=== PATIENT | female | born 1955 | race Two or more races ===

== ENCOUNTER → 2017-04-03 | Outpatient (CLI) | payer MEDICARE ==
--- NOTE | 2017-04-23 00:19 | ECWPNPC ---
PATIENT NAME: LUTHER ANAYA : 1955 GENDER: FEMALE VISIT DATE: 04/03/2017 DISCHARGE DATE: 04/03/17 1458 VISIT LOCKED DATE TIME: PHYSICIAN: BASHIR TIDWELL RESOURCE: BASHIR TIDWELL REASON FOR APPOINTMENT 1. BILATERAL KNEE PAIN HISTORY OF PRESENT ILLNESS NEW PATIENT CONSULT: WHEN DID YOUR PAIN FIRST START? . BRIEFLY DESCRIBE HOW YOUR PAIN STARTED? . HOW DOES YOUR PAIN CHANGE WITH TIME? . DOES YOUR PAIN AWAKEN YOU FROM SLEEP? . HOW MANY HOURS OF SLEEP DO YOU NORMALLY GET? . ANY DIAGNOSTIC TESTING? . FACILITY WHERE TESTS WERE DONE? ____. PAIN TREATMENT TREATMENT YES CANCER HAVE YOU EVER HAD ANY TYPE OF CANCER?NO NO. PAIN SCREENING: PATIENT HAS A COMPLAINT OF ACUTE OR CHRONIC PAIN :YES FALL RISK SCREENING: SCREENING :NO FALLS IN THE PAST YEAR SMART INVENTORY: QUESTIONNAIRE ASSESSEDYES SCORE VALUE CALCULATED YES SCORE: 0/63 - DENIES SUICIDAL/HOMICIDAL IDEATION - HAS MANY NEW STRESSORS WITH THE OF HER AND HAS RECENTLY RETURNED TO THE [facility] AFTER MANY YEARS OF LIVING IN THE [facility] TODAY'S VISIT: NOTES: PATIENT HAD BEEN UNDER THE CARE OF DR FOX RYAN IN [facility]. HAS HAD CHRONIC KNEE PAIN FOR MANY YEARS. HAD BILATERAL KNEE REPLACEMENT IN 2011 IN [facility]. HAD EVEN MORE PAIN IN KNEES L> R POST SURGERY. SHARP SHOOTING PAIN RADIATING FROM KNEES TO HIP AREA. HAD PHYSICAL THERAPY AFTER SURGERY. THIS WAS NOT HELPFUL. WAS STARTED ON LYRICA WITHOUT EFFECT, HYDROCODONE,MANY NSAIDS INCLUDING MELOXICAM, RELAFEN, CELEBREX, PERCOCET (MADE SICK) DOES NOT RECALL BEING ON GABAPENTIN , AMITRIPTYLINE OR NORTRYPTLINE. . CURRENTLY PAIN WAXES AND WANES BUT IS CONSTANT. DOES USE A CANE ON OCCASION. NOTES PAIN IS CENTERED OVER THE KNEE CAP, NOTES HARDEST THING IS TO STAND IF SITTING FOR LONG. HARD TO GO UP /DOWN STAIRS. SOME DIFFICULTY GETTING INTO OR OUT OF CAR. STATES DOES NOT CURRENTLY DRIVE. SLEEP IS DISRUPTED WITH KNEE PAIN OR MUSCLE SPASMS. . CURRENT MEDICATIONS TAKING NORCO 10-325 MG TABLET 1 TABLET NEEDED ORALLY TID TAKING METHADONE HCL 10 MG TABLET 1 TABLET ORALLY TID TAKING OMEPRAZOLE 40 MG CAPSULE DELAYED RELEASE 1 CAPSULE ORALLY ONCE A DAY TAKING LISINOPRIL-HYDROCHLOROTHIAZIDE 20-25 MG TABLET 1 TABLET ORALLY ONCE A DAY TAKING CYCLOBENZAPRINE HCL 10 MG TABLET 1 TABLET NEEDED ORALLY THREE TIMES A DAY TAKING MELOXICAM 15 MG TABLET 1 TABLET ORALLY ONCE A DAY TAKING PHENTERMINE HCL 37.5 MG CAPSULE ORALLY DAILY MEDICATION LIST REVIEWED AND RECONCILED WITH THE PATIENT PAST MEDICAL HISTORY GERD HTN CHRONIC TODD KNEE PAIN ALLERGIES N.K.D.A. SURGICAL HISTORY TODD TOTAL KNEES 2012 PARTIAL HYSTERECTOMY FAMILY HISTORY FATHER: 53 YRS, DIAGNOSED WITH CANCER MOTHER: 75 YRS, DIAGNOSED WITH HEART DISEASE SOCIAL HISTORY GENERAL: TOBACCO USE ARE YOU A:NONSMOKER ALCOHOL SCREENING POINTS0 INTERPRETATIONNEGATIVE RECREATIONAL DRUG USE DRUG USE?NO CAFFEINE CAFFEINE USE?NO DIET: REGULAR, TRYING TO LOSE WEIGHT. MARITAL STATUS: MOVED UP TO [place] TO BE CLOSER TO HER FAMILY. SABIANIST [id number] SAMARITAN LEARNING BARRIERS / SPECIAL NEEDS BARRIERS TO LEARNING?NO HEARING IMPAIRED?NO VISION IMPAIRED?NO COGNITIVELY IMPAIRED?NO READINESS TO LEARN?YES LEARNING PREFERENCES?NO EMOTIONAL BARRIERS? 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 REVIEW OF SYSTEMS REVIEWED BY: PROVIDER: BASHIR LOWERY . CONSTITUTIONAL: ANY CHANGE IN YOUR MEDICAL CONDITION? NO . CHILLS NO . FEVER NO . INFECTION: DO YOU HAVE NEW INFECTIONS? NO . DO YOU HAVE HISTORY OF MRSA? NO . MUSCULOSKELETAL: ANY NEW PATTERNS OF PAIN OR NUMBNESS? NO . SYTEMIC LUPUS NO . GASTROENTEROLOGY: ANY NEW CHANGE IN BOWEL CONTROL? NO . BARRETTS ESOPHAGUS NO . CIRRHOSIS NO . HEPATITIS NO . LIVER FAILURE NO . ACID REFLUX NO . UNEXPLAINED WEIGHT LOSS NO . GENITOURINARY: ANY NEW CHANGE IN BLADDER CONTROL? NO -DENIES CONSTIPATION . IS THERE A CHANCE YOU COULD BE ? NO . HEMATOLOGY/LYMPH: DO YOU TAKE ANY BLOOD THINNERS? (FOR EXAMPLE- COUMADIN, PLAVIX, AGGRENOX, PLATEL, PRADAXA, OR XARELTO) NO . WHEN WAS YOUR LAST DOSE? DATE: TIME: . LOW PLATELET COUNT NO . SICKLE CELL DISEASE NO . VON WILLIEBRANDS NO . FACTOR V LEIDEN NO . THALLASEMIA NO . ANEMIA NO . EASY BRUISING NO . NEUROLOGY: HAVE YOU FALLEN IN THE PAST 6 MONTHS? YES. TRIPPED ON A CART . ANY NEW EXTREMITY NUMBNESS OR WEAKNESS? NO . HEAD INJURY NO . DEMENTIA NO . CEREBRAL PALSY NO . MULTIPLE SCLEROSIS NO . DIZZINESS NO . HEADACHE NO . STROKES NO . VERTIGO NO . CARDIOLOGY: DO YOU HAVE A PACEMAKER OR DEFIBRILLATOR? NO . ANGINA NO . HEART ATTACK NO . HEART SURGERY NO . CONGESTIVE HEART FAILURE/FLUID OVERLOAD NO . CHEST PAIN NO . HIGH BLOOD PRESSURE HTN . IRREGULAR HEART BEAT NO . VARICOSE VEINS MANY VARICOSITIES OVER LOWER EXTREMITIES . RESPIRATORY: HAVE YOU BEEN SICK IN THE PAST WEEK? NO . FEVER NO . FLU LIKE SYMPTOMS? NO . CPAP NO . BYPAP NO . ASTHMA NO . EMPHYSEMA NO . CHRONIC LUNG DISEASES NO . SHORTNESS OF BREATH ON EXERTION NO . DO YOU USE ANY TYPE OF TOBACCO (SMOKE, SMOKELESS, CHEW)? NO . COUGH NO . SNORING NO . INTEGUMENTARY: DO YOU HAVE ANY RASHES OR OPEN SORES? NO . ALLERGIC/IMMUNO: ARE YOU ALLERGIC TO SHELLFISH OR IV DYE? NO . ANY NEW ALLERGIES? NO . PSYCHIATRIC: DO YOU HAVE THOUGHTS OF HURTING YOURSELF OR SOMEONE ELSE? NO . ARE YOU ABUSED, NEGLECTED, OR IN AN UNSAFE ENVIRONMENT? NO . ENDOCRINOLOGY: ARE YOU DIABETIC? NO . THYROID DISORDER NO . OTHER: DO YOU NEED ANY PRESCRIPTIONS? YES . IF YES, PLEASE LIST: NORCO , METHADONE , PHENTERMINE . ANY NEW PROBLEMS WITH YOUR MEDICATIONS? NO . WHEN DID YOU LAST EAT? ____ . WHEN DID YOU LAST DRINK? ____ . WHAT DID YOU LAST DRINK? ____ . NAME OF PERSON DRIVING YOU HOME? ____ . DO YOU HAVE ANY OTHER QUESTIONS OR CONCERNS NO . PSYCHOLOGY: DEPRESSION SITUATIONAL - RECENT LOSS OF . VITAL SIGNS WT 277.6 LBS, HT 62 IN, BMI 50.77 INDEX, BP 152/89 MM HG, HR 106 /MIN, RR 18 /MIN, TEMP 98 F,5 F, OXYGEN SAT % 96%, NA INITIALS SC 13:27, REVIEWED BY: NL. EXAMINATION GENERAL EXAMINATION: GENERAL APPEARANCE:OBESE, COLOR PALE. PSYCHALERT , ORIENTED X 3 , INTERMITTANTLY WEEPY. SOME ANXIETY. HEENT:NORMOCEPHALIC, NO LYMPADENOPATHY, NO THYROMEGY. ENLARGED NECK SIZE. LUNGS:CLEAR TO AUSCULTATION BILATERALLY, NO WHEEZES, RALES OR RHONCHI. HEART:HEART RATE IR - REGULAR, NORMAL S1S2, NO MURMURS, CLICK OR RUBS, NO CAROTID BRUITS. MUSCULOSKELETAL:SIG DIFFICULTY RISING TO STANDING POSITION. . EXTREMITIES:1 + BILATERAL LOWER EXTREMITY EDEMA. JOINTS:BILATERAL, KNEE , PAIN , SWELLING , AT REST , WITH RANGE OF MOTION . NEUROLOGIC EXAM:CN'S II-XII GROSSLY INTACT, NO SENSORY DEFICIET. ASSESSMENTS PAIN IN LEFT KNEE - M25.562 (PRIMARY) PAIN IN RIGHT KNEE - M25.561 OTHER CHRONIC PAIN - G89.29 CHRONIC PRESCRIPTION OPIATE USE - Z79.891 ESSENTIAL HYPERTENSION - I10 GAIT DISTURBANCE - R26.9 TREATMENT PAIN IN LEFT KNEE NOTES: WALKER FOR BALANCE. STAND AND WALK DAILY. PAIN IN RIGHT KNEE REFILL METHADONE HCL TABLET, 10 MG, 1 TABLET, ORALLY, Q 8 HRS CHRONIC PAIN MDD=3, 30 DAY(S), 90, REFILLS 0 REFILL NORCO TABLET, 10-325 MG, 1 TABLET NEEDED, ORALLY, Q6-8 HRS PRN PAIN MDD=3, 30 DAY(S), 90, REFILLS 0 NOTES: EKG TO EVALUATE FOR PROLONGED QT WITH METHADONENARCOTIC AGREEMENT ABD UTOX TODAY. PROCEDURE CODES FA211 ESTABILISHED PATIENT [facility] CHARGE G8783 BP SCR PRFRM RCMDD DEFIND SCR INTVL G8730 PAIN ASSESS POS TOOL F/U PLAN DOC 3016F PT SCRND UNHLTHY [place] USE 1124F ACP DISCUSS-NO DSCNMKR DOCD 1036F TOBACCO NON-USER 0518F FALL PLAN OF CARE DOCD G8427 DOC MEDS VERIFIED W/PT OR RE G8417 BMI >=30 CALCUATE W/FOLLOWUP 3288F FALL RISK ASSESSMENT DOCD DISPOSITION & COMMUNICATION FOLLOW UP 26-28 DAYS (REASON: MED MANAGEMENT) ELECTRONICALLY SIGNED BY GRACIA SHIN ON 04/22/2017 AT 05:50 PM EDT DISCLAIMER : THIS IS A VISIT SUMMARY EXTRACTED FROM THE [employer] CHART. IT IS NOT A COPY OF THE [employer] PROGRESS NOTE. MTDD
== END ==
LOC: M PAIN 13:20
PROVIDERS: ATTEND Nurse Practitioner Family
DX: M25.562 Pain in left knee (principal); M25.561 Pain in right knee; G89.29 Other chronic pain; Z79.891 Long term (current) use of opiate analgesic; I10 Essential (primary) hypertension; R26.9 Unspecified abnormalities of gait and mobility; Z79.899 Other long term (current) drug therapy

== ENCOUNTER → 2017-04-16 | Outpatient (CLI) | payer MEDICARE ==
[2017-04-16 11:35] LABS: BASO % 0.4 % (0.0-1.0); EOS # 0.2 K/mm3 (0.0-0.50); EOS % 3.7 % (0.0-3.0); LYMPH % 37.4 % (24.0-44.0); MEAN CORPUSCULAR HEMOGLOBIN 24.9 pg (27.0-33.0); MEAN CORPUSCULAR HGB CONC 30.7 g/dl (32.0-36.5); MEAN CORPUSCULAR VOLUME 81.2 fl (80.0-96.0); MONO # 0.3 K/mm3 (0.0-0.8); MONO % 6.6 % (0.0-5.0); NEUTROPHILS # 2.6 K/mm3 (1.8-7.7); NEUTROPHILS % 50.1 % (36.0-66.0); RED CELL DISTRIBUTION WIDTH 16.8 % (11.5-14.5); WHITE BLOOD COUNT 5.1 K/mm3 (4.0-10.0)
[2017-04-16 12:08] LABS: ALBUMIN 3.6 GM/DL (3.2-5.2); ALKALINE PHOSPHATASE 95 U/L (45-117); ALT/SGPT 17 U/L (12-78); ANION GAP 5 MEQ/L (8-16); AST/SGOT 7 U/L (15-37); BILIRUBIN,TOTAL 0.6 MG/DL (0.2-1.0); BLOOD UREA NITROGEN 24 MG/DL (7-18); CALCIUM LEVEL 9.1 MG/DL (8.8-10.2); CARBON DIOXIDE LEVEL 33 MEQ/L (21-32); CHLORIDE LEVEL 103 MEQ/L (98-107); CHOLESTEROL LEVEL 174 MG/DL (<200); CREATININE FOR GFR 0.86 MG/DL (0.55-1.02); GLOMERULAR FILTRATION RATE > 60.0 (>45); GLUCOSE, FASTING 97 MG/DL (80-110); POTASSIUM SERUM 4.1 MEQ/L (3.5-5.1); SODIUM LEVEL 141 MEQ/L (136-145); TOTAL PROTEIN 7.2 GM/DL (6.4-8.2); TRIGLYCERIDES LEVEL 103 MG/DL (<150)
== END ==
LOC: M LAB 10:50
PROVIDERS: ATTEND Physician Assistant Medical
DX: I10 Essential (primary) hypertension (principal); E55.9 Vitamin D deficiency, unspecified

== ENCOUNTER → 2017-04-16 | Outpatient (CLI) | payer MEDICARE ==
--- NOTE | 2017-04-17 00:42 | ECGEPIP ---
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
== END ==
LOC: M EKG 10:54
PROVIDERS: ATTEND Nurse Practitioner Family
DX: I10 Essential (primary) hypertension (principal)

== ENCOUNTER 2017-04-23 16:14 | Emergency (ER) | payer MEDICARE ==
[~2017-04-23] VITALS: Ht 157.5 cm; Wt 123.2 kg
[2017-04-23 17:27] LABS: BASO # 0.1 K/mm3 (0.0-0.2); BASO % 1.1 % (0.0-1.0); EOS # 0.2 K/mm3 (0.0-0.50); EOS % 2.8 % (0.0-3.0); LARGE UNSTAINED CELL # 0.2 K/mm3 (0.0-0.4); LARGE UNSTAINED CELL % 3.9 % (0.0-4.0); LYMPH # 2.3 K/mm3 (1.5-4.5); LYMPH % 40.3 % (24.0-44.0); MEAN CORPUSCULAR HEMOGLOBIN 26.4 pg (27.0-33.0); MEAN CORPUSCULAR HGB CONC 32.2 g/dl (32.0-36.5); MEAN CORPUSCULAR VOLUME 81.8 fl (80.0-96.0); MONO # 0.5 K/mm3 (0.0-0.8); MONO % 8.1 % (0.0-5.0); NEUTROPHILS # 2.5 K/mm3 (1.8-7.7); NEUTROPHILS % 43.7 % (36.0-66.0); PLATELET COUNT, AUTOMATED 268 k/mm3 (150-450); RED CELL DISTRIBUTION WIDTH 16.8 % (11.5-14.5); WHITE BLOOD COUNT 5.8 K/mm3 (4.0-10.0)
--- NOTE | 2017-04-23 17:28 | REP ---
Clinical: Chest pain . Comparison: None . Findings: The mediastinum and cardiac silhouette are stable and within normal limits for portable technique. The lung call are clear without acute consolidation, effusion, or pneumothorax. Skeletal structures are intact. Impression: No acute cardiopulmonary process appreciated. Signed by Darren Celis MD 04/23/2017 05:19 P
[2017-04-23 17:46] LABS: ANION GAP 8 MEQ/L (8-16); BLOOD UREA NITROGEN 26 MG/DL (7-18); CALCIUM LEVEL 8.6 MG/DL (8.8-10.2); CARBON DIOXIDE LEVEL 29 MEQ/L (21-32); CHLORIDE LEVEL 102 MEQ/L (98-107); CREATININE FOR GFR 1.05 MG/DL (0.55-1.02); FREE T4 1.21 NG/DL (0.76-1.46); GLOMERULAR FILTRATION RATE 56.3 (>45); GLUCOSE, FASTING 97 MG/DL (80-110); POTASSIUM SERUM 3.5 MEQ/L (3.5-5.1); SODIUM LEVEL 139 MEQ/L (136-145)
[2017-04-23] MEDS ORDERED: ISOVUE-370 76% 100ML VIAL (Q9967) As Ordered ONE (18:02)
[2017-04-23] MEDS ORDERED: METOPROLOL TART 50 MG TAB PO ONE (18:30)
[2017-04-23] MEDS ORDERED: METOPROLOL 5 MG/5 ML VIAL IV SCH (18:30)
[2017-04-23 18:42] VITALS: BP 124/56
--- NOTE | 2017-04-23 18:42 | REP ---
Clinical: Chest pain. Technique: Axial contrast enhanced images from the thoracic inlet to the upper abdomen using 100 ml Isovue 370 intravenous contrast material with multiplanar re-formations. Findings: Satisfactory enhancement of the pulmonary vasculature is achieved and no filling defects are identified to suggest pulmonary embolus. Cardiomegaly suggested along with tortuous thoracic aorta. Lung call demonstrate emphysematous changes and bibasilar scarring. No focal consolidation. No pleural effusion/reaction or pneumothorax. Tracheobronchial tree is patent. Right paratracheal adenopathy and possible mass measuring 2.3 cm maximal diameter cannot be excluded (series 401; images 45 - 62) and differential diagnosis may include a somewhat irregular / tortuous azygos vein. Surrounding musculoskeletal structures demonstrate age-related changes without focal osseous abnormality Impression: 1. No evidence for pulmonary embolus. 2. Cardiomegaly and tortuous thoracic aorta without aneurysm. 3. Cannot exclude right paratracheal adenopathy versus mass versus irregular appearance to the azygos vein. A repeat contrast enhanced chest CT should be performed as follow-up. 4. Underlying mild chronic emphysematous changes and basilar scarring. Signed by Darren Celis MD 04/23/2017 06:33 P
[2017-04-23 20:29] VITALS: BP 132/90
--- NOTE | 2017-04-24 07:36 | ECGEPIP ---
Stationary ECG Study [facility] - ED Test Date: 2017-04-23 Pat Name: LUTHER ANAYA Department: Room: - Gender: F Financial Intern: walter : 1955 Requested By: VAUGHN Hernandez Order Number: [id number] Reading MD: Rama Lea Measurements Intervals [place] Rate: 105 P: ND: 0 QRS: -37 QRSD: 102 T: 4 QT: 357 QTc: 474 Interpretive Statements ATRIAL FIBRILLATION WITH RAPID VENTRICULAR RESPONSE MARKED LEFT AXIS DEVIATION NONSPECIFIC ST & T-WAVE ABNORMALITY DECREASED RATE 04/16/17 Electronically Signed On 04-24-2017 7:36:23 EDT by Rama Lea
--- NOTE | 2017-04-24 08:19 | ED PDOC ---
Post-Departure Follow-Up radiology report faxed to [facility] Ferrer Sarah MD Apr 24, 2017 08:19
== END 2017-04-23 20:31 | disposition home or self-care (01) ==
LOC: M ED 16:14
DX: I48.91 Unspecified atrial fibrillation (principal); I11.0 Hypertensive heart disease with heart failure; I79.1 Aortitis in diseases classified elsewhere; R93.8 Abnormal findings on diagnostic imaging of other specified body structures; Z79.899 Other long term (current) drug therapy; Z82.49 Family history of ischemic heart disease and other diseases of the circulatory system; Z96.653 Presence of artificial knee joint, bilateral; Z90.79 Acquired absence of other genital organ(s)
CPT/HCPCS: 36415; 71010; 71275; 80048; 82550; 82553; 84439; 84443; 84484; 85025; 85379; 93005; 93041; 94760; 96374; 99285; Q9967

== ENCOUNTER → 2017-05-05 | Outpatient (CLI) | payer MEDICARE ==
--- NOTE | 2017-05-29 01:43 | ECWPNPC ---
PATIENT NAME: LUTHER ANAYA : 1955 GENDER: FEMALE VISIT DATE: 05/05/2017 DISCHARGE DATE: 05/05/17 1114 VISIT LOCKED DATE TIME: PHYSICIAN: BASHIR TIDWELL RESOURCE: BASHIR TIDWELL REASON FOR APPOINTMENT 1. MED MANAGEMENT HISTORY OF PRESENT ILLNESS HISTORY OF PRESENT ILLNESS: PAIN THE PATIENT DESCRIBES THE PAIN... FALL RISK SCREENING: SCREENING :NO FALLS IN THE PAST YEAR TODAY'S VISIT: NOTES: RATES PAIN TODAY 7-8/10. DESCRIBES PAIN CONSTANT, WITH INTERMITTANT INCREASES AT THE LEFT KNEE. PAIN IS SHARP, STABBING AND SHOOTING WELL THROBBING. KNEE CONTINUES TO BE HOT TO TOUCH.. CURRENT MEDICATIONS TAKING OMEPRAZOLE 40 MG CAPSULE DELAYED RELEASE 1 CAPSULE ORALLY ONCE A DAY TAKING LISINOPRIL-HYDROCHLOROTHIAZIDE 20-25 MG TABLET 1 TABLET ORALLY ONCE A DAY TAKING CYCLOBENZAPRINE HCL 10 MG TABLET 1 TABLET NEEDED ORALLY THREE TIMES A DAY TAKING MELOXICAM 15 MG TABLET 1 TABLET ORALLY ONCE A DAY TAKING METHADONE HCL 10 MG TABLET 1 TABLET ORALLY Q 8 HRS CHRONIC PAIN MDD=3 TAKING NORCO 10-325 MG TABLET 1 TABLET NEEDED ORALLY Q6-8 HRS PRN PAIN MDD=3 TAKING METOPROLOL SUCCINATE 50 MG TABLET EXTENDED RELEASE ORALLY NOT-TAKING PHENTERMINE HCL 37.5 MG CAPSULE ORALLY DAILY MEDICATION LIST REVIEWED AND RECONCILED WITH THE PATIENT PAST MEDICAL HISTORY GERD HTN CHRONIC TODD KNEE PAIN REVIEW OF SYSTEMS REVIEWED BY: PROVIDER: BASHIR TIDWELL PAYROLL PROCESSOR . CONSTITUTIONAL: ANY CHANGE IN YOUR MEDICAL CONDITION? MD JUST PUT ON METOPROL AND ELIQUIS / SAW MD TODAY DOES NOT KNOW DOSE OF ELIQUIS . CHILLS NO . FEVER NO . INFECTION: DO YOU HAVE NEW INFECTIONS? NO . DO YOU HAVE HISTORY OF MRSA? NO . MUSCULOSKELETAL: ANY NEW PATTERNS OF PAIN OR NUMBNESS? NO . GASTROENTEROLOGY: ANY NEW CHANGE IN BOWEL CONTROL? NO . GENITOURINARY: ANY NEW CHANGE IN BLADDER CONTROL? NO . IS THERE A CHANCE YOU COULD BE ? NO . HEMATOLOGY/LYMPH: DO YOU TAKE ANY BLOOD THINNERS? (FOR EXAMPLE- COUMADIN, PLAVIX, AGGRENOX, PLATEL, PRADAXA, OR XARELTO) YES, NEW TODAY / HAS NOT STARTED YET . WHEN WAS YOUR LAST DOSE? DATE: TIME: . NEUROLOGY: HAVE YOU FALLEN IN THE PAST 6 MONTHS? NO . ANY NEW EXTREMITY NUMBNESS OR WEAKNESS? NO . CARDIOLOGY: DO YOU HAVE A PACEMAKER OR DEFIBRILLATOR? NO . IRREGULAR HEART BEAT NEW DX OF ATRIAL FIB - STARTED ON ELIQUIS . RESPIRATORY: HAVE YOU BEEN SICK IN THE PAST WEEK? NO . FEVER NO . FLU LIKE SYMPTOMS? NO . COUGH NO . INTEGUMENTARY: DO YOU HAVE ANY RASHES OR OPEN SORES? NO . ALLERGIC/IMMUNO: ARE YOU ALLERGIC TO SHELLFISH OR IV DYE? NO . ANY NEW ALLERGIES? NO . PSYCHIATRIC: DO YOU HAVE THOUGHTS OF HURTING YOURSELF OR SOMEONE ELSE? NO . ARE YOU ABUSED, NEGLECTED, OR IN AN UNSAFE ENVIRONMENT? NO . ENDOCRINOLOGY: ARE YOU DIABETIC? NO . OTHER: DO YOU NEED ANY PRESCRIPTIONS? YES . IF YES, PLEASE LIST: MELOXICAM . ANY NEW PROBLEMS WITH YOUR MEDICATIONS? NO . WHEN DID YOU LAST EAT? ____ . WHEN DID YOU LAST DRINK? ____ . WHAT DID YOU LAST DRINK? ____ . NAME OF PERSON DRIVING YOU HOME? ____ . DO YOU HAVE ANY OTHER QUESTIONS OR CONCERNS NO . VITAL SIGNS WT 273.2 LBS, HT 62 IN, BMI 49.96 INDEX, BP 114/70 MANNUAL, HR 103 /MIN, RR 18 /MIN, TEMP 97.7 F, OXYGEN SAT % 96%, NA INITIALS TL 1021, REVIEWED BY: NL. EXAMINATION GENERAL EXAMINATION: GENERAL APPEARANCE:OBESE, COLOR PALE. PSYCHALERT , ORIENTED X 3 ANXIOUS. LUNGS:CLEAR TO AUSCULTATION BILATERALLY, NO WHEEZES, RALES OR RHONCHI. HEART:HEART RATE IR - REGULAR, NORMAL S1S2, NO MURMURS, CLICK OR RUBS, NO CAROTID BRUITS. MUSCULOSKELETAL:SIG DIFFICULTY RISING TO STANDING POSITION. . EXTREMITIES:1 + BILATERAL LOWER EXTREMITY EDEMA. JOINTS:BILATERAL, KNEE , PAIN , SWELLING , AT REST , WITH RANGE OF MOTION . ASSESSMENTS PAIN IN LEFT KNEE - M25.562 (PRIMARY) PAIN IN RIGHT KNEE - M25.561 OTHER CHRONIC PAIN - G89.29 CHRONIC PRESCRIPTION OPIATE USE - Z79.891 ESSENTIAL HYPERTENSION - I10 GAIT DISTURBANCE - R26.9 TREATMENT PAIN IN LEFT KNEE NOTES: METHADONE 10 MG 2 TABS A DAY - MAY TAKE HYDROCONE MAX 3 TABS PER DAY. FORMAL WASTE OF MELOXICAM AND PHENTERAMINE. CLINICAL NOTES: AT LEAST VISIT PT IS ON METHADONE, EKG WAS DONE WHICH DEMONSTRATED POSSIBLE CARDIAC DAMAGE, INCREASED QTC AND ATRIAL FIB. PT'S PCP SORAYA FINCH PA-C WAS CONTACTED AND SHE WAS SENT TO THE ER. SAW PROVIDER TODAY AND WILL BE SEEN BY CARDIOLOGY. REVIEWED AGAIN THE CONCERNS WITH METHADONE A CARDIAC ISSUES. METHADONE DOSE WAS DECREASED AND HYDROCODONE WAS PUT IN PLACE FOR BREAKTHROUGH PAIN. WILL FOLLOW. PROCEDURE CODES FA211 ESTABILISHED PATIENT [facility] CHARGE G8730 PAIN ASSESS POS TOOL F/U PLAN DOC G8427 DOC MEDS VERIFIED W/PT OR RE DISPOSITION & COMMUNICATION FOLLOW UP May OR (REASON: MED MANAGEMENT) ELECTRONICALLY SIGNED BY GRACIA SHIN ON 05/28/2017 AT 06:42 PM EDT DISCLAIMER : THIS IS A VISIT SUMMARY EXTRACTED FROM THE [employer] CHART. IT IS NOT A COPY OF THE [employer] PROGRESS NOTE. MTDD
== END ==
LOC: M PAIN 10:00
PROVIDERS: ATTEND Nurse Practitioner Family
DX: G89.29 Other chronic pain (principal); M25.562 Pain in left knee; M25.561 Pain in right knee; I10 Essential (primary) hypertension; R26.9 Unspecified abnormalities of gait and mobility; K21.9 Gastro-esophageal reflux disease without esophagitis; I48.91 Unspecified atrial fibrillation; Z79.899 Other long term (current) drug therapy

== ENCOUNTER → 2017-07-15 | Outpatient (CLI) | payer MEDICARE ==
--- NOTE | 2017-08-12 01:27 | ECWPNPC ---
PATIENT NAME: LUTHER ANAYA : 1955 GENDER: FEMALE VISIT DATE: 07/15/2017 DISCHARGE DATE: 07/15/17 1215 VISIT LOCKED DATE TIME: PHYSICIAN: BASHIR TIDWELL RESOURCE: BASHIR TIDWELL REASON FOR APPOINTMENT 1. MEDS HISTORY OF PRESENT ILLNESS HISTORY OF PRESENT ILLNESS: PAIN THE PATIENT DESCRIBES THE PAIN... FALL RISK SCREENING: SCREENING :NO FALLS IN THE PAST YEAR TODAY'S VISIT: NOTES: RATES PAIN TODAY 6/10. DESCRIBES PAIN ACHING AND BURNING, SHARP, STABBING, THROBBING, SORE AND SORE. IS SEEING DR TARANGO AND IS ALSO BEING REFERRED TO PULMONOLOGY. IS HAVING A BURNING SENSATION IN LEFT THIGH. WAS ABLE TO WALK ON VISIT TO [facility]. . CURRENT MEDICATIONS TAKING OMEPRAZOLE 40 MG CAPSULE DELAYED RELEASE 1 CAPSULE ORALLY ONCE A DAY TAKING LISINOPRIL-HYDROCHLOROTHIAZIDE 20-25 MG TABLET 1 TABLET ORALLY ONCE A DAY TAKING METOPROLOL SUCCINATE 50 MG TABLET EXTENDED RELEASE ORALLY TAKING METHADONE HCL 10 MG TABLET 1 TABLET ORALLY Q 12 HOURS MDD=2 CHRONIC PAIN TAKING CYCLOBENZAPRINE HCL 10 MG TABLET 1 TABLET NEEDED ORALLY THREE TIMES A DAY TAKING NORCO 10-325 MG TABLET 1 TABLET NEEDED ORALLY Q6-8 HRS PRN PAIN MDD=3 TAKING XARELTO 20 MG TABLET 1 TABLET WITH FOOD ORALLY ONCE A DAY NOT-TAKING MELOXICAM 15 MG TABLET 1 TABLET ORALLY ONCE A DAY NOT-TAKING PHENTERMINE HCL 37.5 MG CAPSULE ORALLY DAILY MEDICATION LIST REVIEWED AND RECONCILED WITH THE PATIENT PAST MEDICAL HISTORY GERD HTN CHRONIC TODD KNEE PAIN ALLERGIES N.K.D.A. REVIEW OF SYSTEMS REVIEWED BY: PROVIDER: BASHIR TIDWELL TECHNICAL DELIVERY MANAGER . CONSTITUTIONAL: ANY CHANGE IN YOUR MEDICAL CONDITION? 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 CHILLS NO . FEVER NO . INFECTION: DO YOU HAVE NEW INFECTIONS? NO . DO YOU HAVE HISTORY OF MRSA? NO . MUSCULOSKELETAL: ANY NEW PATTERNS OF PAIN OR NUMBNESS? NO . GASTROENTEROLOGY: ANY NEW CHANGE IN BOWEL CONTROL? NO . GENITOURINARY: ANY NEW CHANGE IN BLADDER CONTROL? NO . IS THERE A CHANCE YOU COULD BE ? NO . HEMATOLOGY/LYMPH: DO YOU TAKE ANY BLOOD THINNERS? (FOR EXAMPLE- COUMADIN, PLAVIX, AGGRENOX, PLATEL, PRADAXA, OR XARELTO) NO . WHEN WAS YOUR LAST DOSE? DATE: TIME: . NEUROLOGY: HAVE YOU FALLEN IN THE PAST 6 MONTHS? NO . ANY NEW EXTREMITY NUMBNESS OR WEAKNESS? NO . CARDIOLOGY: DO YOU HAVE A PACEMAKER OR DEFIBRILLATOR? NO . RESPIRATORY: HAVE YOU BEEN SICK IN THE PAST WEEK? NO . FEVER NO . FLU LIKE SYMPTOMS? NO . COUGH NO . INTEGUMENTARY: DO YOU HAVE ANY RASHES OR OPEN SORES? NO . ALLERGIC/IMMUNO: ARE YOU ALLERGIC TO SHELLFISH OR IV DYE? NO . ANY NEW ALLERGIES? NO . PSYCHIATRIC: DO YOU HAVE THOUGHTS OF HURTING YOURSELF OR SOMEONE ELSE? NO . ARE YOU ABUSED, NEGLECTED, OR IN AN UNSAFE ENVIRONMENT? NO . ENDOCRINOLOGY: ARE YOU DIABETIC? NO . OTHER: DO YOU NEED ANY PRESCRIPTIONS? NO . IF YES, PLEASE LIST: ____ . ANY NEW PROBLEMS WITH YOUR MEDICATIONS? NO . WHEN DID YOU LAST EAT? ____ . WHEN DID YOU LAST DRINK? ____ . WHAT DID YOU LAST DRINK? ____ . NAME OF PERSON DRIVING YOU HOME? ____ . DO YOU HAVE ANY OTHER QUESTIONS OR CONCERNS DOES NOT KNOW WHY SHE IS ON XARELTO . VITAL SIGNS WT 269 LBS, HT 62 IN, BMI 49.20 INDEX, BP 135/76 MM HG, HR 63 /MIN, RR 18 /MIN, TEMP 97.5 F, OXYGEN SAT % 92%, NA INITIALS AW 1153, REVIEWED BY: NL. EXAMINATION GENERAL EXAMINATION: GENERAL APPEARANCE:OBESE, COLOR PALE. PSYCHALERT , ORIENTED X 3 ANXIOUS. LUNGS:CLEAR TO AUSCULTATION BILATERALLY, NO WHEEZES, RALES OR RHONCHI. HEART:HEART RATE IR - REGULAR, NO CAROTID BRUITS. MUSCULOSKELETAL: DIFFICULTY RISING TO STANDING POSITION. POOR BALANCE. GAIT ANTALGIC. EXTREMITIES:1 + BILATERAL LOWER EXTREMITY EDEMA. JOINTS:BILATERAL, KNEE , PAIN , SWELLING , AT REST , WITH RANGE OF MOTION . ASSESSMENTS PAIN IN LEFT KNEE - M25.562 (PRIMARY) PAIN IN RIGHT KNEE - M25.561 OTHER CHRONIC PAIN - G89.29 CHRONIC PRESCRIPTION OPIATE USE - Z79.891 ESSENTIAL HYPERTENSION - I10 GAIT DISTURBANCE - R26.9 TREATMENT PAIN IN LEFT KNEE NOTES: CONTINUE CURRENT MEDS. CALL WHEN MEDS DUE. CLINICAL NOTES: ISTOP REGISTRY REVIEWED AND DEMNOSTRATES COMPLLIANCE. (REF# [id number]) BRINGS IN MEDICATIONS WHICH IS APPROPRIATE FOR WHAT WAS DISPENSED. RECENT URINE TOXICOLOGY REVIEWED. NO UNAUTHORIZED MEDICATIONS. NO ILLICIT SUBSTANCES AND PRESCRIBED MEDICATIONS WERE PRESENT. PROCEDURE CODES FA211 ESTABILISHED PATIENT [facility] CHARGE G8730 PAIN ASSESS POS TOOL F/U PLAN DOC G8427 DOC MEDS VERIFIED W/PT OR RE DISPOSITION & COMMUNICATION FOLLOW UP 2 MONTHS (REASON: BRENDA - NEED MOST RECENT EKG AND OFFICE NOTES FROM DR TARANGO) ELECTRONICALLY SIGNED BY GRACIA SHIN ON 08/11/2017 AT 02:08 PM EDT DISCLAIMER : THIS IS A VISIT SUMMARY EXTRACTED FROM THE [employer] CHART. IT IS NOT A COPY OF THE [employer] PROGRESS NOTE. ANA
== END ==
LOC: M PAIN 11:15
PROVIDERS: ATTEND Nurse Practitioner Family
DX: G89.29 Other chronic pain (principal); M25.562 Pain in left knee; M25.561 Pain in right knee; I10 Essential (primary) hypertension; R26.9 Unspecified abnormalities of gait and mobility; F10.20 Alcohol dependence, uncomplicated; Z79.891 Long term (current) use of opiate analgesic; Z79.899 Other long term (current) drug therapy

== ENCOUNTER → 2017-10-14 | Outpatient (CLI) | payer MEDICARE | LOC: M PAIN 14:15 | DX: G89.29 Other chronic pain (principal); M25.562 Pain in left knee; M25.561 Pain in right knee; I10 Essential (primary) hypertension; R26.9 Unspecified abnormalities of gait and mobility; K21.9 Gastro-esophageal reflux disease without esophagitis; I48.91 Unspecified atrial fibrillation; Z79.01 Long term (current) use of anticoagulants; Z79.891 Long term (current) use of opiate analgesic; F11.20 Opioid dependence, uncomplicated; Z79.899 Other long term (current) drug therapy | CPT/HCPCS: G0463 ==

== ENCOUNTER → 2017-11-10 | Outpatient (CLI) | payer MEDICARE | LOC: M PAIN 10:00 | DX: M25.562 Pain in left knee (principal); M25.561 Pain in right knee; G89.29 Other chronic pain; R26.9 Unspecified abnormalities of gait and mobility; K21.9 Gastro-esophageal reflux disease without esophagitis; I10 Essential (primary) hypertension; Z79.891 Long term (current) use of opiate analgesic; Z79.899 Other long term (current) drug therapy | CPT/HCPCS: G0463 ==

== ENCOUNTER → 2018-02-03 | Outpatient (CLI) | payer MEDICARE | LOC: M PAIN 10:45 | DX: M25.562 Pain in left knee (principal); M25.561 Pain in right knee; G89.29 Other chronic pain; R26.9 Unspecified abnormalities of gait and mobility; K21.9 Gastro-esophageal reflux disease without esophagitis; I10 Essential (primary) hypertension; Z79.891 Long term (current) use of opiate analgesic; Z79.01 Long term (current) use of anticoagulants; Z79.899 Other long term (current) drug therapy | CPT/HCPCS: G0463 ==

== ENCOUNTER → 2018-06-08 | Outpatient (CLI) | payer MEDICARE | LOC: M PAIN 10:30 | DX: G89.29 Other chronic pain (principal); M25.562 Pain in left knee; M25.561 Pain in right knee; R26.9 Unspecified abnormalities of gait and mobility; K21.9 Gastro-esophageal reflux disease without esophagitis; I10 Essential (primary) hypertension; I48.91 Unspecified atrial fibrillation; I83.90 Asymptomatic varicose veins of unspecified lower extremity; Z79.891 Long term (current) use of opiate analgesic; Z96.653 Presence of artificial knee joint, bilateral; Z79.899 Other long term (current) drug therapy | CPT/HCPCS: G0463 ==

== ENCOUNTER → 2018-09-01 | Outpatient (REF) | payer MEDICARE ==
[2018-09-01 14:08] LABS: HEMATOCRIT 44.4 % (36.0-47.0); HEMOGLOBIN 14.4 g/dl (12.0-15.5); MEAN CORPUSCULAR HEMOGLOBIN 28.6 pg (27.0-33.0); MEAN CORPUSCULAR HGB CONC 32.4 g/dl (32.0-36.5); MEAN CORPUSCULAR VOLUME 88.1 fl (80.0-96.0); PLATELET COUNT, AUTOMATED 293 10^3/uL (150-450); RED BLOOD COUNT 5.04 10^6/uL (4.00-5.40); RED CELL DISTRIBUTION WIDTH 15.9 % (11.5-14.5)
[2018-09-01 14:27] LABS: ALBUMIN 3.6 GM/DL (3.2-5.2); ALBUMIN/GLOBULIN RATIO 0.95 (1.00-1.93); ALKALINE PHOSPHATASE 101 U/L (45-117); ALT/SGPT 25 U/L (12-78); ANION GAP 9 MEQ/L (8-16); AST/SGOT 18 U/L (7-37); BILIRUBIN,TOTAL 0.6 MG/DL (0.2-1.0); BLOOD UREA NITROGEN 13 MG/DL (7-18); CALCIUM LEVEL 9.1 MG/DL (8.8-10.2); CARBON DIOXIDE LEVEL 30 MEQ/L (21-32); CHLORIDE LEVEL 99 MEQ/L (98-107); CHOLESTEROL LEVEL 219 MG/DL (<200); CHOLESTEROL RISK RATIO 4.211 (<5); CREATININE FOR GFR 0.98 MG/DL (0.55-1.30); GLOMERULAR FILTRATION RATE > 60.0 (>45); GLUCOSE, FASTING 128 MG/DL (70-100); HDL CHOLESTEROL 52 MG/DL (>40); LDL CHOLESTEROL 135 MG/DL (<100); NON-HDL-C 167 MG/DL; POTASSIUM SERUM 3.8 MEQ/L (3.5-5.1); SODIUM LEVEL 138 MEQ/L (136-145); TOTAL PROTEIN 7.4 GM/DL (6.4-8.2); TRIGLYCERIDES LEVEL 158 MG/DL (<150)
== END ==
LOC: M SFHCPLAZ 10:56
DX: Z00.00 Encounter for general adult medical examination without abnormal findings (principal); I48.91 Unspecified atrial fibrillation; E66.01 Morbid (severe) obesity due to excess calories; Z68.43 Body mass index [BMI] 50.0-59.9, adult
CPT/HCPCS: 84443

== ENCOUNTER → 2018-09-01 | Outpatient (CLI) | payer MEDICARE | LOC: M PAIN 11:45 | DX: M25.562 Pain in left knee (principal); M25.561 Pain in right knee; G89.29 Other chronic pain; I83.90 Asymptomatic varicose veins of unspecified lower extremity; R26.9 Unspecified abnormalities of gait and mobility; K21.9 Gastro-esophageal reflux disease without esophagitis; I10 Essential (primary) hypertension; I48.91 Unspecified atrial fibrillation; Z96.653 Presence of artificial knee joint, bilateral; Z79.891 Long term (current) use of opiate analgesic | CPT/HCPCS: 84443; G0463 ==

== ENCOUNTER → 2019-01-25 | Outpatient (CLI) | payer MEDICARE ==
--- NOTE | 2019-01-27 01:07 | ECWPNPC ---
PATIENT NAME: LUTHER ANAYA : 1955 GENDER: FEMALE VISIT DATE: 01/25/2019 DISCHARGE DATE: 01/25/19 1431 VISIT LOCKED DATE TIME: PHYSICIAN: KIRAN LEWIS RESOURCE: KIRAN LEWIS REASON FOR APPOINTMENT 1. KNEE PAIN MED MANAGEMNT HISTORY OF PRESENT ILLNESS HISTORY OF PRESENT ILLNESS: PAIN THE PATIENT DESCRIBES THE PAINDURING THE LAST MONTH SEVERITY - PAIN SCORE OF5/10 QUALITYACHING , BURNING 63 YR OLD FEMALE HERE TO F/U ON HER CHRONIC BILATERAL KNEE PAIN. SHE SAYS SHE HAS DECREASED HER DOSE OF HYDROCODONE AND THIS HAS HELPED. FALL RISK SCREENING: SCREENING :NO FALLS REPORTED IN THE LAST YEAR CURRENT MEDICATIONS TAKING LISINOPRIL-HYDROCHLOROTHIAZIDE 20-25 MG TABLET 1 TABLET ORALLY ONCE A DAY TAKING XARELTO 20 MG TABLET 1 TABLET WITH FOOD ORALLY ONCE A DAY TAKING OMEPRAZOLE 40 MG CAPSULE DELAYED RELEASE 1 CAPSULE ORALLY ONCE A DAY TAKING METOPROLOL TARTRATE 50 MG TABLET 1 TABLET WITH FOOD ORALLY DAILY TAKING ZOFRAN 8 MG TABLET 1 TABLET ORALLY THREE TIMES DAILY PRN NAUSEA TAKING PROZAC 20 MG CAPSULE 1 CAPSULE ORALLY ONCE A DAY TAKING METHADONE HCL 10 MG TABLET 1 TABLET ORALLY Q 12 HOURS MDD=2 CHRONIC PAIN TAKING NORCO 10-325 MG TABLET 1 TABLET NEEDED ORALLY Q12H PRN MDD2 TAKING CYCLOBENZAPRINE HCL 10 MG TABLET 1 TABLET NEEDED ORALLY THREE TIMES A DAY MEDICATION LIST REVIEWED AND RECONCILED WITH THE PATIENT PAST MEDICAL HISTORY GERD HTN ATRIAL FIB ON XARELTO STRESS TEST -DR. TARANGO VARICOSE VEINS CHRONIC TODD KNEE PAIN CHRONIC PRESCRIPTION OPOID USEAGE GAIT DISTURBANCE 02/25/18 REFUSES COLONOSCOPY ALLERGIES N.K.D.A. SURGICAL HISTORY TODD TOTAL KNEES 2012 PARTIAL HYSTERECTOMY FAMILY HISTORY FATHER: 53 YRS, MELONOMA, DIAGNOSED WITH CANCER MOTHER: 75 YRS, HEART DISEASE 1 SISTER(S) . PT HAS A TWIN SISTER WHO SEE\\'S DR. ROCA. \\N1 SISTER IN FIRE @ AGE 36 (AT FIRESIDE REST). SOCIAL HISTORY GENERAL: TOBACCO USE ARE YOU A:NONSMOKER NEVER SMOKER BMI CARE GOAL FOLLOW-UP ABOVE NORMAL BMI FOLLOW-UPDIETARY MANAGEMENT EDUCATION, GUIDANCE, AND COUNSELING ALCOHOL SCREENING DID YOU HAVE A DRINK CONTAINING ALCOHOL IN THE PAST YEAR?NO POINTS0 INTERPRETATIONNEGATIVE RECREATIONAL DRUG USE DRUG USE?NO CAFFEINE CAFFEINE USE?YES 1-2 A DAY SODA SEXUAL HX HAD SEX IN THE LAST 12 MONTHS (VAGINAL, ORAL, OR ANAL)?NO LMP:HYSTERECTOMY HAVE YOU EVER HAD AN STD?NO HIV / HEP-C SCREENING HIV TEST OFFERED TO PATIENT:YES DATE OFFERED:02/25/2018 TEST ACCEPTED:NO HEP-C TEST OFFERED TO PATIENT:YES DATE OFFERED:02/25/2018 REASON:PATIENT DECLINED TEST ACCEPTED:NO REASON:PATIENT DECLINED BROCHURE PROVIDED TO PATIENTNO DECLINED PAMPLET VOODOO [id number] LANGUAGES SPOKEN:KINYARWANDA EDUCATION LEVEL OF EDUCATION:FINISHED HIGH SCHOOL LEARNING BARRIERS / SPECIAL NEEDS BARRIERS TO LEARNING?NO HEARING IMPAIRED?NO VISION IMPAIRED?NO COGNITIVELY IMPAIRED?NO READINESS TO LEARN?YES LEARNING PREFERENCES?NO EMOTIONAL BARRIERS? 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 DIET: REGULAR, TRYING TO LOSE WEIGHT. EXERCISE: NONE. MARITAL STATUS: /08/2016. OTHERS AT HOME: OLDER DAUGHTER( BOGDAN ANAYA).. PAIN CLINIC PFS, CLERGY, PUBLIC HEALTH REFERRALS PFS REFERRAL NEEDED?NO CLERGY REFERRAL NEEDED?NO PUBLIC HEALTH REFERRAL NEEDED?NO WAS THE PROVIDER NOTIFIED OF ANY PERTINENT INFO?YES HAS THE PATIENT BEEN EDUCATED REGARDING HIS/HER PLAN OF CARE?YES HAS THE PATIENT BEEN EDUCATED REGARDING PAIN, THE RISK FOR PAIN, THE IMPORTANCE OF EFFECTIVE PAIN MANAGEMENT, AND THE PAIN ASSESSMENT PROCESS?YES ADVANCE DIRECTIVE ADVANCE DIRECTIVE DISCUSSED WITH PATIENT:YES DAUGHTER [phone] HOSPITALIZATION/MAJOR DIAGNOSTIC PROCEDURE SURGERY REVIEW OF SYSTEMS REVIEWED BY: PROVIDER: CHARY Luis CONSTITUTIONAL: ANY CHANGE IN YOUR MEDICAL CONDITION? NO . CHILLS NO . FEVER NO . INFECTION: DO YOU HAVE NEW INFECTIONS? NO . DO YOU HAVE HISTORY OF MRSA? NO . MUSCULOSKELETAL: ANY NEW PATTERNS OF PAIN OR NUMBNESS? NO . GASTROENTEROLOGY: ANY NEW CHANGE IN BOWEL CONTROL? NO . GENITOURINARY: ANY NEW CHANGE IN BLADDER CONTROL? NO . IS THERE A CHANCE YOU COULD BE ? NO . HEMATOLOGY/LYMPH: DO YOU TAKE ANY BLOOD THINNERS? (FOR EXAMPLE- COUMADIN, PLAVIX, AGGRENOX, PLATEL, PRADAXA, OR XARELTO) YES, XARELTO . WHEN WAS YOUR LAST DOSE? DATE: TIME: . NEUROLOGY: HAVE YOU FALLEN IN THE PAST 12 MONTHS? NO . ANY NEW EXTREMITY NUMBNESS OR WEAKNESS? NO . CARDIOLOGY: DO YOU HAVE A PACEMAKER OR DEFIBRILLATOR? NO . RESPIRATORY: HAVE YOU BEEN SICK IN THE PAST WEEK? YES, URI RESOLVED . FEVER NO . FLU LIKE SYMPTOMS? NO . COUGH YES, ALL BETTER . INTEGUMENTARY: DO YOU HAVE ANY RASHES OR OPEN SORES? NO . ALLERGIC/IMMUNO: ARE YOU ALLERGIC TO IV DYE? NO . ANY NEW ALLERGIES? NO . PSYCHIATRIC: DO YOU HAVE THOUGHTS OF HURTING YOURSELF OR SOMEONE ELSE? NO . ARE YOU ABUSED, NEGLECTED, OR IN AN UNSAFE ENVIRONMENT? NO . ENDOCRINOLOGY: ARE YOU DIABETIC? NO . OTHER: DO YOU NEED ANY PRESCRIPTIONS? YES, HYDROCODONE-APAP, METHADONE . IF YES, PLEASE LIST: ____ . ANY NEW PROBLEMS WITH YOUR MEDICATIONS? NO . WHEN DID YOU LAST EAT? ____ . WHEN DID YOU LAST DRINK? ____ . WHAT DID YOU LAST DRINK? ____ . NAME OF PERSON DRIVING YOU HOME? ____ . DO YOU HAVE ANY OTHER QUESTIONS OR CONCERNS NO . VITAL SIGNS WT 283 LBS, HT 62 IN, BMI 51.76 INDEX, BP 169/74 MM HG, HR 107 /MIN, RR 18 /MIN, TEMP 98.1 F, OXYGEN SAT % 94%, NA INITIALS AW 1346, REVIEWED BY: EM. EXAMINATION GENERAL EXAMINATION: GENERAL APPEARANCE:NO ACUTE DISTRESS, WELL NOURISHED AND HYDRATED. PSYCHAPPROPRIATE MOOD AND AFFECT . LUNGS:CLEAR TO AUSCULTATION BILATERALLY, NO WHEEZES, RHONCHI, RALES. HEART:NO MURMURS, REGULAR RATE AND RHYTHM. ASSESSMENTS PAIN IN LEFT KNEE - M25.562 (PRIMARY) PAIN IN RIGHT KNEE - M25.561 TREATMENT PAIN IN LEFT KNEE CONTINUE CYCLOBENZAPRINE HCL TABLET, 10 MG, 1 TABLET NEEDED, ORALLY, THREE TIMES A DAY, 30 DAYS, 90 TABLET, REFILLS 0 CONTINUE METHADONE HCL TABLET, 10 MG, 1 TABLET, ORALLY, Q 12 HOURS MDD=2 CHRONIC PAIN, 30 DAYS, 60, REFILLS 0 CONTINUE NORCO TABLET, 10-325 MG, 1 TABLET NEEDED, ORALLY, Q12H PRN MDD2, 30 DAYS, 60, REFILLS 0 CLINICAL NOTES: ISTOP REGISTRY REVIEWED AND DEMONSTRATES COMPLLIANCE. (REF # [id number]) BRINGS IN MEDICATIONS WHICH IS APPROPRIATE FOR WHAT WAS DISPENSED. RECENT URINE TOXICOLOGY REVIEWED. NO UNAUTHORIZED MEDICATIONS. NO ILLICIT SUBSTANCES AND PRESCRIBED MEDICATIONS WERE PRESENT. URINE TOX TODAY., RISKS AND BENEFITS OF NARCOTIC/OPIOD MEDICATIONS WERE REVIEWED WITH PATIENT - THIS INCLUDES BUT IS NOT LIMITED TO RISK OF DEPENDANCE/DEVELOPMENT OF ADDICTION, MOOD DISTURBANCE AND DEPRESSION, OSTEOPOROSIS, HORMONAL AND LABIDAL CHANGES, RESPIRATORY DEPRESSION AND . PATIENT IS ADVISED NOT TO DRIVE OR DRINK ALCOHOL WHILE ON THESE MEDICATIONS. PROCEDURE CODES FA211 ESTABILISHED PATIENT [facility] CHARGE DISPOSITION & COMMUNICATION FOLLOW UP 3 MONTHS ELECTRONICALLY SIGNED BY BEVERLEY ROBLES ON 01/26/2019 AT 04:59 PM EDT DISCLAIMER : THIS IS A VISIT SUMMARY EXTRACTED FROM THE [employer] CHART. IT IS NOT A COPY OF THE [employer] PROGRESS NOTE. ANA
== END ==
LOC: M PAIN 13:45
PROVIDERS: ATTEND Nurse Practitioner Family
DX: M25.562 Pain in left knee (principal); M25.561 Pain in right knee; G89.29 Other chronic pain; K21.9 Gastro-esophageal reflux disease without esophagitis; I10 Essential (primary) hypertension; I48.91 Unspecified atrial fibrillation; Z79.01 Long term (current) use of anticoagulants; E66.01 Morbid (severe) obesity due to excess calories; Z68.43 Body mass index [BMI] 50.0-59.9, adult; Z79.891 Long term (current) use of opiate analgesic; Z79.899 Other long term (current) drug therapy

== ENCOUNTER → 2019-05-16 | Outpatient (CLI) | payer MEDICARE ==
--- NOTE | 2019-05-28 00:17 | ECWPNPC ---
PATIENT NAME: LUTHER ANAYA : 1955 GENDER: FEMALE VISIT DATE: 05/16/2019 DISCHARGE DATE: 05/16/19930 VISIT LOCKED DATE TIME: PHYSICIAN: JONATHAN HORN RESOURCE: JONATHAN HORN REASON FOR APPOINTMENT 1. KNEE PAIN MED MANAGEMNT HISTORY OF PRESENT ILLNESS HISTORY OF PRESENT ILLNESS: HERE FOR F/U OF CHRONIC BILAT KNEE PAIN.HX OF BILAT KNEE PAIN SINCE BILAT. KNEE REPLACEMENT IN 2011.HAS BEEN TRYING TO DECREASE HYDROCODONE OVER THE PAST FEW MONTHS.CURRENTLY USING HYDROCODONE 10/325 2 PER DAY INSTEAED OF 4 PER DAY.HAS ALSO DECREASED CYCLOBENZAPRINE FROM 4 TO 2.ON METHADONE 10MG BID.RATING KNEE PAIN 06/04.HAS NOT TAKEN MEDICATIONS YET THIS AM. PAIN THE PATIENT DESCRIBES THE PAIN... FALL RISK SCREENING: SCREENING :NO FALLS REPORTED IN THE LAST YEAR CURRENT MEDICATIONS TAKING ZOFRAN 8 MG TABLET 1 TABLET ORALLY THREE TIMES DAILY PRN NAUSEA TAKING XARELTO 20 MG TABLET 1 TABLET WITH FOOD ORALLY ONCE A DAY TAKING LISINOPRIL-HYDROCHLOROTHIAZIDE 20-25 MG TABLET 1 TABLET ORALLY ONCE A DAY TAKING METOPROLOL TARTRATE 50 MG TABLET 1 TABLET WITH FOOD ORALLY DAILY TAKING OMEPRAZOLE 40 MG CAPSULE DELAYED RELEASE 1 CAPSULE ORALLY ONCE A DAY TAKING PROZAC 20 MG CAPSULE 1 CAPSULE ORALLY ONCE A DAY TAKING NORCO 10-325 MG TABLET 1 TABLET NEEDED ORALLY Q12H PRN MDD2 TAKING METHADONE HCL 10 MG TABLET 1 TABLET ORALLY Q 12 HOURS MDD=2 CHRONIC PAIN TAKING CYCLOBENZAPRINE HCL 10 MG TABLET 1 TABLET NEEDED ORALLY THREE TIMES A DAY MEDICATION LIST REVIEWED AND RECONCILED WITH THE PATIENT PAST MEDICAL HISTORY GERD HTN ATRIAL FIB ON XARELTO STRESS TEST -DR. TARANGO VARICOSE VEINS CHRONIC TODD KNEE PAIN CHRONIC PRESCRIPTION OPOID USEAGE GAIT DISTURBANCE 02/25/18-03/08/2019- REFUSES COLONOSCOPY PANIC ATTACKS STARTED 2018 ALLERGIES N.K.D.A. SURGICAL HISTORY TODD TOTAL KNEES 2012 PARTIAL HYSTERECTOMY FAMILY HISTORY FATHER: 53 YRS, MELONOMA, DIAGNOSED WITH CANCER MOTHER: 75 YRS, HEART DISEASE 1 SISTER(S) . PT HAS A TWIN SISTER WHO SEE\\'S DR. ORCA. \\N1 SISTER IN FIRE @ AGE 36 (AT FIRESIDE REST). SOCIAL HISTORY GENERAL: TOBACCO USE ARE YOU A:NONSMOKER NEVER SMOKER HIV / HEP-C SCREENING HIV TEST OFFERED TO PATIENT:YES DATE OFFERED:02/25/2018 TEST ACCEPTED:NO HEP-C TEST OFFERED TO PATIENT:YES DATE OFFERED:02/25/2018 REASON:PATIENT DECLINED TEST ACCEPTED:NO REASON:PATIENT DECLINED BROCHURE PROVIDED TO PATIENTNO DECLINED PAMPLET OTHERS AT HOME: OLDER DAUGHTER( BOGDAN ANAYA).. EDUCATION LEVEL OF EDUCATION:FINISHED HIGH SCHOOL DIET: REGULAR, TRYING TO LOSE WEIGHT. LANGUAGE LANGUAGES SPOKEN:DUTCH DOMESTIC VIOLENCE STATUS: 08/2016 BMI CARE GOAL FOLLOW-UP ABOVE NORMAL BMI FOLLOW-UPDIETARY MANAGEMENT EDUCATION, GUIDANCE, AND COUNSELING RECREATIONAL DRUG USE DRUG USE?NO EXERCISE: NONE. LEARNING BARRIERS / SPECIAL NEEDS BARRIERS TO LEARNING?NO HEARING IMPAIRED?NO VISION IMPAIRED?NO COGNITIVELY IMPAIRED?NO READINESS TO LEARN?YES LEARNING PREFERENCES?NO EMOTIONAL BARRIERS? 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" SPECIAL DEVICES?NO HOT REPAIRMAN NEEDED?NO PAIN CLINIC PFS, CLERGY, PUBLIC HEALTH REFERRALS PFS REFERRAL NEEDED?NO CLERGY REFERRAL NEEDED?NO PUBLIC HEALTH REFERRAL NEEDED?NO WAS THE PROVIDER NOTIFIED OF ANY PERTINENT INFO?YES HAS THE PATIENT BEEN EDUCATED REGARDING HIS/HER PLAN OF CARE?YES HAS THE PATIENT BEEN EDUCATED REGARDING PAIN, THE RISK FOR PAIN, THE IMPORTANCE OF EFFECTIVE PAIN MANAGEMENT, AND THE PAIN ASSESSMENT PROCESS?YES LATEX QUESTIONNAIRE LATEX ALLERGY : HAVE YOU EVER DEVELOPED ANY TYPE OF REACTION AFTER HANDLING LATEX PRODUCTS SUCH RUBBER GLOVES, CONDOMS, DIAPHRAGMS, BALLOONS, SOCKS, OR UNDERWEAR?NO LATEX ALLERGY : HAVE YOU EVER DEVELOPED ANY TYPE OF REACTION DURING OR AFTER DENTAL APPOINTMENT, VAGINAL/RECTAL EXAMINATION, SURGICAL PROCEDURE, OR ANY OTHER EXPOSURE?NO LATEX RISK : HAVE YOU EVER HAD ANY DIFFICULTY BREATHING OR HIVES AFTER EATING OR HANDLING ANY FRUITS, OR VEGETABLES; SUCH KIWI, BANANAS, STONE FRUITS, OR CHESTNUTSNO LATEX RISK : DO YOU HAVE A PREVIOUS PERSONAL HISTORY OF MORE THAN NINE SURGERIES, SPINA BIFIDA, OR REPEATED CATHERIZATIONS? NO LATEX RISK : ARE YOU FREQUENTLY EXPOSED TO LATEX PRODUCTS IN YOUR OCCUPATION?NO DATE ASKED : 05/16/2019 CAFFEINE CAFFEINE USE?YES 1-2 A DAY SODA ADVANCE DIRECTIVE ADVANCE DIRECTIVE DISCUSSED WITH PATIENT:YES DAUGHTER [phone] SCIENTOLOGY [id number] YARSANI MARITAL STATUS: /08/2016. 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 SEXUAL HX HAD SEX IN THE LAST 12 MONTHS (VAGINAL, ORAL, OR ANAL)?NO LMP:HYSTERECTOMY HAVE YOU EVER HAD AN STD?NO HOSPITALIZATION/MAJOR DIAGNOSTIC PROCEDURE SURGERY REVIEW OF SYSTEMS REVIEWED BY: PROVIDER: JONATHAN LOWERY . CONSTITUTIONAL: ANY CHANGE IN YOUR MEDICAL CONDITION? NO . CHILLS NO . FEVER NO . INFECTION: DO YOU HAVE NEW INFECTIONS? NO . DO YOU HAVE HISTORY OF MRSA? NO . MUSCULOSKELETAL: ANY NEW PATTERNS OF PAIN OR NUMBNESS? NO . GASTROENTEROLOGY: ANY NEW CHANGE IN BOWEL CONTROL? NO . GENITOURINARY: ANY NEW CHANGE IN BLADDER CONTROL? NO . IS THERE A CHANCE YOU COULD BE ? NO . HEMATOLOGY/LYMPH: DO YOU TAKE ANY BLOOD THINNERS? (FOR EXAMPLE- COUMADIN, PLAVIX, AGGRENOX, PLATEL, PRADAXA, OR XARELTO) YES, XARELTO . WHEN WAS YOUR LAST DOSE? DATE: TIME: . NEUROLOGY: HAVE YOU FALLEN IN THE PAST 12 MONTHS? NO . ANY NEW EXTREMITY NUMBNESS OR WEAKNESS? NO . CARDIOLOGY: DO YOU HAVE A PACEMAKER OR DEFIBRILLATOR? NO . RESPIRATORY: HAVE YOU BEEN SICK IN THE PAST WEEK? NO . FEVER NO . FLU LIKE SYMPTOMS? NO . COUGH NO . INTEGUMENTARY: DO YOU HAVE ANY RASHES OR OPEN SORES? NO . ALLERGIC/IMMUNO: ARE YOU ALLERGIC TO IV DYE? NO . ANY NEW ALLERGIES? NO . PSYCHIATRIC: DO YOU HAVE THOUGHTS OF HURTING YOURSELF OR SOMEONE ELSE? NO . ARE YOU ABUSED, NEGLECTED, OR IN AN UNSAFE ENVIRONMENT? NO . ENDOCRINOLOGY: ARE YOU DIABETIC? NO . OTHER: DO YOU NEED ANY PRESCRIPTIONS? NO . IF YES, PLEASE LIST: ____ . ANY NEW PROBLEMS WITH YOUR MEDICATIONS? NO . WHEN DID YOU LAST EAT? ____ . WHEN DID YOU LAST DRINK? ____ . WHAT DID YOU LAST DRINK? ____ . NAME OF PERSON DRIVING YOU HOME? ____ . DO YOU HAVE ANY OTHER QUESTIONS OR CONCERNS YES, SHINGLES, PNEUMONIA . VITAL SIGNS WT 283.4 LBS, HT 62 IN, BMI 51.83 INDEX, BP 138/105 MM HG, HR 127 /MIN, RR 20 /MIN, TEMP 97.6 F, OXYGEN SAT % 94%, SAFE IN ENV? (Y/N) Y, NA INITIALS AW 0855, REVIEWED BY: JANICE, BP SITTING 128/82LET NURSE KNOW ABOUT BP IN HR. EXAMINATION GENERAL EXAMINATION: GENERALAWAKE,ALERT ,PLEAASANT . PSYCHAFFECT NORMAL . LUNGS:LUNG ASHLEY ARE CLEAR TO AUSCULTATION BILATERALLY. GOOD MOVEMENT OF AIR . HEART:S1, S2 IN A REGULAR RATE AND RHYTHM. NO SIGNIFICANT MURMURS, RUBS OR GALLOPS NOTED . ASSESSMENTS PAIN IN RIGHT KNEE - M25.561 (PRIMARY) PAIN IN LEFT KNEE - M25.562 CHRONIC PRESCRIPTION OPIATE USE - Z79.891 TREATMENT PAIN IN RIGHT KNEE REFILL NORCO TABLET, 10-325 MG, 1 TABLET NEEDED, ORALLY, Q12H PRN MDD2, 30 DAYS, 60, REFILLS 0 REFILL METHADONE HCL TABLET, 10 MG, 1 TABLET, ORALLY, Q 12 HOURS MDD=2 CHRONIC PAIN, 30 DAYS, 60, REFILLS 0 DECREASE CYCLOBENZAPRINE HCL TABLET, 10 MG, 1 TABLET NEEDED, ORALLY, BID, 30 DAYS, 60 TABLET, REFILLS 5 NOTES: ISTOP REGISTRY REVIEWED AND DEMONSTRATES COMPLLIANCE. BRINGS IN MEDICATIONS WHICH IS APPROPRIATE FOR WHAT WAS DISPENSED. RECENT URINE TOXICOLOGY REVIEWED. NO UNAUTHORIZED MEDICATIONS. NO ILLICIT SUBSTANCES AND PRESCRIBED MEDICATIONS WERE PRESENT. , RISKS AND BENEFITS OF NARCOTIC/OPIOD MEDICATIONS WERE REVIEWED WITH PATIENT - THIS INCLUDES BUT IS NOT LIMITED TO RISK OF DEPENDANCE/DEVELOPMENT OF ADDICTION, MOOD DISTURBANCE AND DEPRESSION, OSTEOPOROSIS, HORMONAL AND LABIDAL CHANGES, RESPIRATORY DEPRESSION AND . PATIENT IS ADVISED NOT TO DRIVE OR DRINK ALCOHOL WHILE ON THESE MEDICATIONS. PROCEDURE CODES FA211 ESTABILISHED PATIENT [facility] CHARGE DISPOSITION & COMMUNICATION FOLLOW UP 3 MONTHS ELECTRONICALLY SIGNED BY BEVERLEY RICO ON 05/27/2019 AT 01:09 PM EDT DISCLAIMER : THIS IS A VISIT SUMMARY EXTRACTED FROM THE [employer] CHART. IT IS NOT A COPY OF THE [employer] PROGRESS NOTE. ANA
== END ==
LOC: M PAIN 08:45
PROVIDERS: ATTEND Nurse Practitioner Family
DX: M25.561 Pain in right knee (principal); M25.562 Pain in left knee; K21.9 Gastro-esophageal reflux disease without esophagitis; I10 Essential (primary) hypertension; I48.91 Unspecified atrial fibrillation; I83.90 Asymptomatic varicose veins of unspecified lower extremity; R26.89 Other abnormalities of gait and mobility; F41.0 Panic disorder [episodic paroxysmal anxiety]; Z79.891 Long term (current) use of opiate analgesic; Z79.01 Long term (current) use of anticoagulants; Z79.899 Other long term (current) drug therapy; Z96.653 Presence of artificial knee joint, bilateral

== ENCOUNTER → 2019-08-31 | Outpatient (CLI) | payer MEDICARE, MEDICAID ==
--- NOTE | 2019-09-21 05:13 | ECWPNPC ---
PATIENT NAME: LUTHER ANAYA : 1955 GENDER: FEMALE VISIT DATE: 08/31/2019 DISCHARGE DATE: 08/31/19 1208 VISIT LOCKED DATE TIME: PHYSICIAN: JONATHAN HORN RESOURCE: JONATHAN HORN REASON FOR APPOINTMENT 1. KNEE PAIN/MED MANAGEMENT HISTORY OF PRESENT ILLNESS HISTORY OF PRESENT ILLNESS: HERE FOR F/U OF CHRONIC BILAT KNEE PAIN.HX OF BILAT KNEE PAIN SINCE BILAT. KNEE REPLACEMENT IN 2011.HAS BEEN TRYING TO DECREASE HYDROCODONE OVER THE PAST FEW MONTHS.CURRENTLY USING HYDROCODONE 10/325 2 PER DAY,HAS ALSO DECREASED CYCLOBENZAPRINE 2 PER DAY AND METHADONE 10MG BID.RATING KNEE PAIN 03/04.FINDS MEDICATION EFFECTIVE AT REDUCING PAIN AND KEEPING HER COMFORTABLE. PAIN THE PATIENT DESCRIBES THE PAIN... THE PATIENT DESCRIBES THE PAIN... FALL RISK SCREENING: SCREENING :NO FALLS REPORTED IN THE LAST YEAR CURRENT MEDICATIONS TAKING METHADONE HCL 10 MG TABLET 1 TABLET ORALLY Q 12 HOURS MDD=2 CHRONIC PAIN TAKING NORCO 10-325 MG TABLET 1 TABLET NEEDED ORALLY Q12H PRN MDD2 TAKING CYCLOBENZAPRINE HCL 10 MG TABLET 1 TABLET NEEDED ORALLY BID TAKING LISINOPRIL-HYDROCHLOROTHIAZIDE 20-25 MG TABLET 1 TABLET ORALLY ONCE A DAY TAKING METOPROLOL TARTRATE 50 MG TABLET 1 TABLET WITH FOOD ORALLY DAILY TAKING XARELTO 20 MG TABLET 1 TABLET ORALLY DAILY TAKING OMEPRAZOLE 40 MG CAPSULE DELAYED RELEASE 1 CAPSULE ORALLY ONCE A DAY TAKING PROZAC 20 MG CAPSULE 1 CAPSULE ORALLY ONCE A DAY NOT-TAKING ZOFRAN 8 MG TABLET 1 TABLET ORALLY THREE TIMES DAILY PRN NAUSEA MEDICATION LIST REVIEWED AND RECONCILED WITH THE PATIENT PAST MEDICAL HISTORY GERD HTN ATRIAL FIB ON XARELTO STRESS TEST -DR. TARANGO VARICOSE VEINS CHRONIC TODD KNEE PAIN CHRONIC PRESCRIPTION OPOID USEAGE GAIT DISTURBANCE 02/25/18-03/08/2019- REFUSES COLONOSCOPY PANIC ATTACKS STARTED 2019 ALLERGIES N.K.D.A. SURGICAL HISTORY TODD TOTAL KNEES 2011 PARTIAL HYSTERECTOMY FAMILY HISTORY FATHER: 53 YRS, MELONOMA, DIAGNOSED WITH OTHER MALIGNANT NEOPLASM OF UNSPECIFIED SITE MOTHER: 75 YRS, HEART DISEASE 1 SISTER(S) . PT HAS A TWIN SISTER WHO SEE\\'S DR. ROCA. \\N1 SISTER IN FIRE @ AGE 36 (AT FIRESIDE REST). SOCIAL HISTORY GENERAL: TOBACCO USE ARE YOU A:NONSMOKER NEVER SMOKER HIV / HEP-C SCREENING HIV TEST OFFERED TO PATIENT:YES DATE OFFERED:02/25/2018 TEST ACCEPTED:NO HEP-C TEST OFFERED TO PATIENT:YES DATE OFFERED:02/25/2018 REASON:PATIENT DECLINED TEST ACCEPTED:NO REASON:PATIENT DECLINED BROCHURE PROVIDED TO PATIENTNO DECLINED PAMPLET OTHERS AT HOME: OLDER DAUGHTER( BOGDAN ANAYA).. EDUCATION LEVEL OF EDUCATION:FINISHED HIGH SCHOOL DIET: REGULAR, TRYING TO LOSE WEIGHT. LANGUAGE LANGUAGES SPOKEN:ARABIC DOMESTIC VIOLENCE STATUS: 08/2016 BMI CARE GOAL FOLLOW-UP ABOVE NORMAL BMI FOLLOW-UPDIETARY MANAGEMENT EDUCATION, GUIDANCE, AND COUNSELING RECREATIONAL DRUG USE DRUG USE?NO EXERCISE: NONE. LEARNING BARRIERS / SPECIAL NEEDS BARRIERS TO LEARNING?NO HEARING IMPAIRED?NO VISION IMPAIRED?NO COGNITIVELY IMPAIRED?NO READINESS TO LEARN?YES LEARNING PREFERENCES?NO EMOTIONAL BARRIERS? 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" SPECIAL DEVICES?NO AUTOMOTIVE PROFESSIONAL NEEDED?NO PAIN CLINIC PFS, CLERGY, PUBLIC HEALTH REFERRALS PFS REFERRAL NEEDED?NO CLERGY REFERRAL NEEDED?NO PUBLIC HEALTH REFERRAL NEEDED?NO WAS THE PROVIDER NOTIFIED OF ANY PERTINENT INFO?YES HAS THE PATIENT BEEN EDUCATED REGARDING HIS/HER PLAN OF CARE?YES HAS THE PATIENT BEEN EDUCATED REGARDING PAIN, THE RISK FOR PAIN, THE IMPORTANCE OF EFFECTIVE PAIN MANAGEMENT, AND THE PAIN ASSESSMENT PROCESS?YES LATEX QUESTIONNAIRE LATEX ALLERGY : HAVE YOU EVER DEVELOPED ANY TYPE OF REACTION AFTER HANDLING LATEX PRODUCTS SUCH RUBBER GLOVES, CONDOMS, DIAPHRAGMS, BALLOONS, SOCKS, OR UNDERWEAR?NO LATEX ALLERGY : HAVE YOU EVER DEVELOPED ANY TYPE OF REACTION DURING OR AFTER DENTAL APPOINTMENT, VAGINAL/RECTAL EXAMINATION, SURGICAL PROCEDURE, OR ANY OTHER EXPOSURE?NO LATEX RISK : HAVE YOU EVER HAD ANY DIFFICULTY BREATHING OR HIVES AFTER EATING OR HANDLING ANY FRUITS, OR VEGETABLES; SUCH KIWI, BANANAS, STONE FRUITS, OR CHESTNUTSNO LATEX RISK : DO YOU HAVE A PREVIOUS PERSONAL HISTORY OF MORE THAN NINE SURGERIES, SPINA BIFIDA, OR REPEATED CATHERIZATIONS? NO LATEX RISK : ARE YOU FREQUENTLY EXPOSED TO LATEX PRODUCTS IN YOUR OCCUPATION?NO DATE ASKED : 05/16/2019 CAFFEINE CAFFEINE USE?YES 1-2 A DAY SODA ADVANCE DIRECTIVE ADVANCE DIRECTIVE DISCUSSED WITH PATIENT:YES HCP: DAUGHTER - MALA - [phone] HINDU [id number] JUDAISM MARITAL STATUS: /08/2016. 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 SEXUAL HX HAD SEX IN THE LAST 12 MONTHS (VAGINAL, ORAL, OR ANAL)?NO LMP:HYSTERECTOMY HAVE YOU EVER HAD AN STD?NO REVIEWED WITH PATIENT 08/31/19 1134 JS. HOSPITALIZATION/MAJOR DIAGNOSTIC PROCEDURE SURGERY REVIEW OF SYSTEMS REVIEWED BY: PROVIDER: JONATHAN LOWERY . CONSTITUTIONAL: ANY CHANGE IN YOUR MEDICAL CONDITION? NO . CHILLS NO . FEVER NO . INFECTION: DO YOU HAVE NEW INFECTIONS? NO . DO YOU HAVE HISTORY OF MRSA? NO . MUSCULOSKELETAL: ANY NEW PATTERNS OF PAIN OR NUMBNESS? NO . GASTROENTEROLOGY: ANY NEW CHANGE IN BOWEL CONTROL? NO . GENITOURINARY: ANY NEW CHANGE IN BLADDER CONTROL? NO . IS THERE A CHANCE YOU COULD BE ? NO . HEMATOLOGY/LYMPH: DO YOU TAKE ANY BLOOD THINNERS? (FOR EXAMPLE- COUMADIN, PLAVIX, AGGRENOX, PLATEL, PRADAXA, OR XARELTO) YES, XARELTO . WHEN WAS YOUR LAST DOSE? DATE: 08/31/19TIME: 929 . NEUROLOGY: HAVE YOU FALLEN IN THE PAST 12 MONTHS? NO . ANY NEW EXTREMITY NUMBNESS OR WEAKNESS? NO . CARDIOLOGY: DO YOU HAVE A PACEMAKER OR DEFIBRILLATOR? NO . RESPIRATORY: HAVE YOU BEEN SICK IN THE PAST WEEK? YES, STATES CHEST COLD, BETTER NOW . FEVER NO . FLU LIKE SYMPTOMS? NO . COUGH YES . INTEGUMENTARY: DO YOU HAVE ANY RASHES OR OPEN SORES? NO . ALLERGIC/IMMUNO: ARE YOU ALLERGIC TO IV DYE? NO . ANY NEW ALLERGIES? NO . PSYCHIATRIC: DO YOU HAVE THOUGHTS OF HURTING YOURSELF OR SOMEONE ELSE? NO . ARE YOU ABUSED, NEGLECTED, OR IN AN UNSAFE ENVIRONMENT? NO . ENDOCRINOLOGY: ARE YOU DIABETIC? NO . OTHER: DO YOU NEED ANY PRESCRIPTIONS? NO . IF YES, PLEASE LIST: ____ . ANY NEW PROBLEMS WITH YOUR MEDICATIONS? NO . WHEN DID YOU LAST EAT? ____ . WHEN DID YOU LAST DRINK? ____ . WHAT DID YOU LAST DRINK? ____ . NAME OF PERSON DRIVING YOU HOME? ____ . DO YOU HAVE ANY OTHER QUESTIONS OR CONCERNS FLU VACCINE IN JULY . VITAL SIGNS WT 285.2 LBS, HT 62 IN, BMI 52.16 INDEX, BP 133/89 MM HG, HR 113 /MIN, RR 18 /MIN, TEMP 96.2 F, OXYGEN SAT % 96%, SAFE IN ENV? (Y/N) YES, NA INITIALS AW 1132, REVIEWED BY: FENG. EXAMINATION GENERAL EXAMINATION: GENERALAWAKE,ALERT ,PLEAASANT . PSYCHAFFECT NORMAL . LUNGS:LUNG ASHLEY ARE CLEAR TO AUSCULTATION BILATERALLY. GOOD MOVEMENT OF AIR . HEART:S1, S2 IN A REGULAR RATE AND RHYTHM. NO SIGNIFICANT MURMURS, RUBS OR GALLOPS NOTED . ASSESSMENTS PAIN IN RIGHT KNEE - M25.561 (PRIMARY) PAIN IN LEFT KNEE - M25.562 TREATMENT PAIN IN RIGHT KNEE REFILL METHADONE HCL TABLET, 10 MG, 1 TABLET, ORALLY, Q 12 HOURS MDD=2 CHRONIC PAIN, 30 DAYS, 60, REFILLS 0 REFILL NORCO TABLET, 10-325 MG, 1 TABLET NEEDED, ORALLY, Q12H PRN MDD2, 30 DAYS, 60, REFILLS 0 CONTINUE CYCLOBENZAPRINE HCL TABLET, 10 MG, 1 TABLET NEEDED, ORALLY, BID NOTES: ISTOP REGISTRY REVIEWED AND DEMONSTRATES COMPLLIANCE. BRINGS IN MEDICATIONS WHICH IS APPROPRIATE FOR WHAT WAS DISPENSED. RECENT URINE TOXICOLOGY REVIEWED. NO UNAUTHORIZED MEDICATIONS. NO ILLICIT SUBSTANCES AND PRESCRIBED MEDICATIONS WERE PRESENT. URINE TOX TODAY, RISKS OF NARCOTIC/OPIOD MEDICATIONS INCLUDES BUT IS NOT LIMITED TO RISK OF DEPENDANCE/DEVELOPMENT OF ADDICTION, MOOD DISTURBANCE AND DEPRESSION, OSTEOPOROSIS, HORMONAL AND LABIDAL CHANGES, RESPIRATORY DEPRESSION AND . PATIENT IS ADVISED NOT TO DRIVE OR DRINK ALCOHOL WHILE ON THESE MEDICATIONS. PROCEDURE CODES FA211 ESTABILISHED PATIENT [facility] CHARGE DISPOSITION & COMMUNICATION FOLLOW UP 3 MONTHS ELECTRONICALLY SIGNED BY BEVERLEY RICO ON 09/20/2019 AT 08:58 AM EST DISCLAIMER : THIS IS A VISIT SUMMARY EXTRACTED FROM THE [employer] CHART. IT IS NOT A COPY OF THE [employer] PROGRESS NOTE. ANA
== END ==
LOC: M PAIN 11:30
PROVIDERS: ATTEND Nurse Practitioner Family
DX: M25.561 Pain in right knee (principal); M25.562 Pain in left knee
CPT/HCPCS: G0463 ×2

== ENCOUNTER → 2019-12-01 | Outpatient (CLI) | payer MEDICARE, MEDICAID ==
--- NOTE | 2019-12-20 06:17 | ECWPNPC ---
PATIENT NAME: LUTHER ANAYA : 1955 GENDER: FEMALE VISIT DATE: 12/01/2019 DISCHARGE DATE: 12/01/19 1051 VISIT LOCKED DATE TIME: PHYSICIAN: JONATHAN HORN RESOURCE: JONATHAN HORN REASON FOR APPOINTMENT 1. 3 MONTHS HISTORY OF PRESENT ILLNESS HISTORY OF PRESENT ILLNESS: HERE FOR F/U OF CHRONIC BILAT KNEE PAIN.HX OF BILAT KNEE PAIN SINCE BILAT. KNEE REPLACEMENT IN 2011.HAS BEEN TRYING TO DECREASE HYDROCODONE OVER THE PAST FEW MONTHS.CURRENTLY USING HYDROCODONE 10/325 2 PER DAY,HAS ALSO DECREASED CYCLOBENZAPRINE 2 PER DAY AND METHADONE 10MG BID.RATING KNEE PAIN 03/04.FINDS MEDICATION EFFECTIVE AT REDUCING PAIN AND KEEPING HER COMFORTABLE. PAIN THE PATIENT DESCRIBES THE PAIN... FALL RISK SCREENING: SCREENING :NO FALLS REPORTED IN THE LAST YEAR CURRENT MEDICATIONS TAKING LISINOPRIL-HYDROCHLOROTHIAZIDE 20-25 MG TABLET 1 TABLET ORALLY ONCE A DAY TAKING METOPROLOL TARTRATE 50 MG TABLET 1 TABLET WITH FOOD ORALLY DAILY TAKING OMEPRAZOLE 40 MG CAPSULE DELAYED RELEASE 1 CAPSULE ORALLY ONCE A DAY TAKING PROZAC 20 MG CAPSULE 1 CAPSULE ORALLY ONCE A DAY TAKING XARELTO 20 MG TABLET TAKE 1 TABLET BY MOUTH ONCE DAILY WITH FOOD TAKING NORCO 10-325 MG TABLET 1 TABLET NEEDED ORALLY Q12H PRN MDD2 TAKING METHADONE HCL 10 MG TABLET 1 TABLET ORALLY Q 12 HOURS MDD=2 CHRONIC PAIN TAKING CYCLOBENZAPRINE HCL 10 MG TABLET 1 TABLET NEEDED ORALLY BID NOT-TAKING ZOFRAN 8 MG TABLET 1 TABLET ORALLY THREE TIMES DAILY PRN NAUSEA MEDICATION LIST REVIEWED AND RECONCILED WITH THE PATIENT PAST MEDICAL HISTORY GERD HTN ATRIAL FIB ON XARELTO STRESS TEST -DR. TARANGO VARICOSE VEINS CHRONIC TODD KNEE PAIN CHRONIC PRESCRIPTION OPOID USEAGE GAIT DISTURBANCE 02/25/18-03/08/2019- REFUSES COLONOSCOPY PANIC ATTACKS STARTED 2019 ALLERGIES N.K.D.A. SURGICAL HISTORY TODD TOTAL KNEES 2012 PARTIAL HYSTERECTOMY FAMILY HISTORY FATHER: 53 YRS, MELONOMA, DIAGNOSED WITH OTHER MALIGNANT NEOPLASM OF UNSPECIFIED SITE MOTHER: 75 YRS, HEART DISEASE 1 SISTER(S) . PT HAS A TWIN SISTER WHO SEE\\'S DR. ROCA. \\N1 SISTER IN FIRE @ AGE 36 (AT FIRESIDE REST). SOCIAL HISTORY GENERAL: TOBACCO USE ARE YOU A:NONSMOKER NEVER SMOKER HIV / HEP-C SCREENING HIV TEST OFFERED TO PATIENT:YES DATE OFFERED:02/25/2018 TEST ACCEPTED:NO HEP-C TEST OFFERED TO PATIENT:YES DATE OFFERED:02/25/2018 REASON:PATIENT DECLINED TEST ACCEPTED:NO REASON:PATIENT DECLINED BROCHURE PROVIDED TO PATIENTNO DECLINED PAMPLET OTHERS AT HOME: OLDER DAUGHTER( BOGDAN ANAYA).. EDUCATION LEVEL OF EDUCATION:FINISHED HIGH SCHOOL DIET: REGULAR, TRYING TO LOSE WEIGHT. LANGUAGE LANGUAGES SPOKEN:MAORI DOMESTIC VIOLENCE STATUS: 08/2016 BMI CARE GOAL FOLLOW-UP ABOVE NORMAL BMI FOLLOW-UPDIETARY MANAGEMENT EDUCATION, GUIDANCE, AND COUNSELING RECREATIONAL DRUG USE DRUG USE?NO EXERCISE: NONE. LEARNING BARRIERS / SPECIAL NEEDS BARRIERS TO LEARNING?NO HEARING IMPAIRED?NO VISION IMPAIRED?NO COGNITIVELY IMPAIRED?NO READINESS TO LEARN?YES LEARNING PREFERENCES?NO EMOTIONAL BARRIERS? 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" SPECIAL DEVICES?NO CUTTING AND SPLICING SUPERVISOR NEEDED?NO PAIN CLINIC PFS, CLERGY, PUBLIC HEALTH REFERRALS PFS REFERRAL NEEDED?NO CLERGY REFERRAL NEEDED?NO PUBLIC HEALTH REFERRAL NEEDED?NO WAS THE PROVIDER NOTIFIED OF ANY PERTINENT INFO?YES HAS THE PATIENT BEEN EDUCATED REGARDING HIS/HER PLAN OF CARE?YES HAS THE PATIENT BEEN EDUCATED REGARDING PAIN, THE RISK FOR PAIN, THE IMPORTANCE OF EFFECTIVE PAIN MANAGEMENT, AND THE PAIN ASSESSMENT PROCESS?YES LATEX QUESTIONNAIRE LATEX ALLERGY : HAVE YOU EVER DEVELOPED ANY TYPE OF REACTION AFTER HANDLING LATEX PRODUCTS SUCH RUBBER GLOVES, CONDOMS, DIAPHRAGMS, BALLOONS, SOCKS, OR UNDERWEAR?NO LATEX ALLERGY : HAVE YOU EVER DEVELOPED ANY TYPE OF REACTION DURING OR AFTER DENTAL APPOINTMENT, VAGINAL/RECTAL EXAMINATION, SURGICAL PROCEDURE, OR ANY OTHER EXPOSURE?NO LATEX RISK : HAVE YOU EVER HAD ANY DIFFICULTY BREATHING OR HIVES AFTER EATING OR HANDLING ANY FRUITS, OR VEGETABLES; SUCH KIWI, BANANAS, STONE FRUITS, OR CHESTNUTSNO LATEX RISK : DO YOU HAVE A PREVIOUS PERSONAL HISTORY OF MORE THAN NINE SURGERIES, SPINA BIFIDA, OR REPEATED CATHERIZATIONS? NO LATEX RISK : ARE YOU FREQUENTLY EXPOSED TO LATEX PRODUCTS IN YOUR OCCUPATION?NO DATE ASKED : 05/16/2019 CAFFEINE CAFFEINE USE?YES 1-2 A DAY SODA ADVANCE DIRECTIVE ADVANCE DIRECTIVE DISCUSSED WITH PATIENT:YES HCP: DAUGHTER Tiffanie MEDEIROS - [phone] CATHOLIC [id number] [facility] MARITAL STATUS: /08/2016. 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 SEXUAL HX HAD SEX IN THE LAST 12 MONTHS (VAGINAL, ORAL, OR ANAL)?NO LMP:HYSTERECTOMY HAVE YOU EVER HAD AN STD?NO REVIEWED WITH PATIENT 08/31/19 1134 JSREVIEWED WITH PATIENT 12/01/2019 1017 JS. HOSPITALIZATION/MAJOR DIAGNOSTIC PROCEDURE SURGERY REVIEW OF SYSTEMS REVIEWED BY: PROVIDER: JONATHAN LOWERY . CONSTITUTIONAL: ANY CHANGE IN YOUR MEDICAL CONDITION? NO . CHILLS NO . FEVER NO . INFECTION: DO YOU HAVE NEW INFECTIONS? NO . DO YOU HAVE HISTORY OF MRSA? NO . MUSCULOSKELETAL: ANY NEW PATTERNS OF PAIN OR NUMBNESS? NO . GASTROENTEROLOGY: ANY NEW CHANGE IN BOWEL CONTROL? NO . GENITOURINARY: ANY NEW CHANGE IN BLADDER CONTROL? NO . IS THERE A CHANCE YOU COULD BE ? NO . HEMATOLOGY/LYMPH: DO YOU TAKE ANY BLOOD THINNERS? (FOR EXAMPLE- COUMADIN, PLAVIX, AGGRENOX, PLATEL, PRADAXA, OR XARELTO) YES, XARELTO . WHEN WAS YOUR LAST DOSE? DATE: 12/01/2019TIME: 0930 . NEUROLOGY: HAVE YOU FALLEN IN THE PAST 12 MONTHS? YES, STATES FALL DUE TO TRIPPING - ONLY ENDED UP WITH A FEW BRUISES. STATES NO MAJOR INJURIES, NO ED VISIT . ANY NEW EXTREMITY NUMBNESS OR WEAKNESS? NO . CARDIOLOGY: DO YOU HAVE A PACEMAKER OR DEFIBRILLATOR? NO . RESPIRATORY: HAVE YOU BEEN SICK IN THE PAST WEEK? YES, STATES POSSIBLY SOME SORT OF A VIRUS/COLD RECENTLY - ONLY HAS A COUGH IN THE MORNING, IMPROVING . FEVER NO . FLU LIKE SYMPTOMS? NO . COUGH YES . INTEGUMENTARY: DO YOU HAVE ANY RASHES OR OPEN SORES? NO . ALLERGIC/IMMUNO: ARE YOU ALLERGIC TO IV DYE? NO . ANY NEW ALLERGIES? NO . PSYCHIATRIC: DO YOU HAVE THOUGHTS OF HURTING YOURSELF OR SOMEONE ELSE? NO . ARE YOU ABUSED, NEGLECTED, OR IN AN UNSAFE ENVIRONMENT? NO . ENDOCRINOLOGY: ARE YOU DIABETIC? NO . OTHER: DO YOU NEED ANY PRESCRIPTIONS? NO . IF YES, PLEASE LIST: ____ . ANY NEW PROBLEMS WITH YOUR MEDICATIONS? NO . WHEN DID YOU LAST EAT? ____ . WHEN DID YOU LAST DRINK? ____ . WHAT DID YOU LAST DRINK? ____ . NAME OF PERSON DRIVING YOU HOME? ____ . DO YOU HAVE ANY OTHER QUESTIONS OR CONCERNS NO . VITAL SIGNS WT 291.4 LBS, HT 62 IN, BMI 53.29 INDEX, BP 177/83 MM HG, REPEAT BP 160/88 MM HG, HR 117 /MIN, RR 18 /MIN, TEMP 97.3 F, OXYGEN SAT % 93%, SAFE IN ENV? (Y/N) YES, NA INITIALS AW 1013, REVIEWED BY: FENG. EXAMINATION GENERAL EXAMINATION: GENERAL AWAKE,ALERT ,PLEASANT . PSYCH AFFECT NORMAL . LUNGS: LUNG ASHLEY ARE CLEAR TO AUSCULTATION BILATERALLY. GOOD MOVEMENT OF AIR . HEART: S1, S2 IN A SLIGHTLY IRREGULAR.HX OF ATRIAL FIBRILLATION ON XARELTO. 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 BRINGS IN MEDICATIONS WHICH IS APPROPRIATE FOR WHAT WAS DISPENSED. RECENT URINE TOXICOLOGY REVIEWED. NO UNAUTHORIZED MEDICATIONS. NO ILLICIT SUBSTANCES AND PRESCRIBED MEDICATIONS WERE PRESENT. , RISKS OF NARCOTIC/OPIOD MEDICATIONS INCLUDES BUT IS NOT LIMITED TO RISK OF DEPENDANCE/DEVELOPMENT OF ADDICTION, MOOD DISTURBANCE AND DEPRESSION, OSTEOPOROSIS, HORMONAL AND LABIDAL CHANGES, RESPIRATORY DEPRESSION AND . PATIENT IS ADVISED NOT TO DRIVE OR DRINK ALCOHOL WHILE ON THESE MEDICATIONS. PROCEDURE CODES [id number] ESTABILISHED PATIENT [facility] CHARGE DISPOSITION & COMMUNICATION FOLLOW UP 3 MONTHS ELECTRONICALLY SIGNED BY BEVERLEY RICO ON 12/19/2019 AT 04:01 PM EST DISCLAIMER : THIS IS A VISIT SUMMARY EXTRACTED FROM THE [facility] CHART. IT IS NOT A COPY OF THE [facility] PROGRESS NOTE. ANA
== END ==
LOC: M PAIN 10:00
PROVIDERS: ATTEND Nurse Practitioner Family
DX: M25.561 Pain in right knee (principal); M54.40 Lumbago with sciatica, unspecified side; I10 Essential (primary) hypertension; I48.91 Unspecified atrial fibrillation; Z79.891 Long term (current) use of opiate analgesic; Z79.899 Other long term (current) drug therapy

== ENCOUNTER → 2020-03-01 | Outpatient (CLI) | payer MEDICARE, MEDICAID ==
--- NOTE | 2020-03-03 02:39 | ECWPNPC ---
PATIENT NAME: LUTHER ANAYA : 1955 GENDER: FEMALE VISIT DATE: 03/01/2020 DISCHARGE DATE: 03/01/20833 VISIT LOCKED DATE TIME: PHYSICIAN: JONATHAN HORN RESOURCE: JONATHAN HORN REASON FOR APPOINTMENT 1. 3 MONTH F/U- [phone] HISTORY OF PRESENT ILLNESS HISTORY OF PRESENT ILLNESS: PATIENT IS AGREEABLE TO TELEPHONE VISIT TODAY. THIS IS A ROUTINE FOLLOW-UP AND MANAGEMENT OF CHRONIC PAIN MEDICATIONS DUE TO BILATERAL KNEE PAIN, RIGHT GREATER THAN LEFT. FINDS CURRENT CHRONIC PAIN MEDICATION EFFECTIVE AT REDUCING HER PAIN AND KEEPING HER FUNCTIONAL. DENIES ADVERSE EFFECTS. RATING PAIN VAS 5/10. PAIN THE PATIENT DESCRIBES THE PAIN... FALL RISK SCREENING: SCREENING :NO FALLS REPORTED IN THE LAST YEAR CURRENT MEDICATIONS TAKING METOPROLOL TARTRATE 50 MG TABLET 1 TABLET WITH FOOD ORALLY DAILY TAKING OMEPRAZOLE 40 MG CAPSULE DELAYED RELEASE 1 CAPSULE ORALLY ONCE A DAY TAKING PROZAC 20 MG CAPSULE 1 CAPSULE ORALLY ONCE A DAY TAKING XARELTO 20 MG TABLET TAKE 1 TABLET BY MOUTH ONCE DAILY WITH FOOD TAKING LISINOPRIL-HYDROCHLOROTHIAZIDE 20-25 MG TABLET 1 TABLET ORALLY ONCE A DAY TAKING CYCLOBENZAPRINE HCL 10 MG TABLET 1 TABLET NEEDED ORALLY BID TAKING METHADONE HCL 10 MG TABLET 1 TABLET ORALLY Q 12 HOURS MDD=2 CHRONIC PAIN TAKING NORCO 10-325 MG TABLET 1 TABLET NEEDED ORALLY Q12H PRN MDD2 NOT-TAKING ZOFRAN 8 MG TABLET 1 TABLET ORALLY THREE TIMES DAILY PRN NAUSEA MEDICATION LIST REVIEWED AND RECONCILED WITH THE PATIENT PAST MEDICAL HISTORY GERD HTN ATRIAL FIB ON XARELTO STRESS TEST -DR. TARANGO VARICOSE VEINS CHRONIC TODD KNEE PAIN CHRONIC PRESCRIPTION OPOID USEAGE GAIT DISTURBANCE 02/25/18-03/08/2019- REFUSES COLONOSCOPY PANIC ATTACKS STARTED 2019 ALLERGIES N.K.D.A. SURGICAL HISTORY TODD TOTAL KNEES 2012 PARTIAL HYSTERECTOMY FAMILY HISTORY FATHER: 53 YRS, MELONOMA, DIAGNOSED WITH OTHER MALIGNANT NEOPLASM OF UNSPECIFIED SITE MOTHER: 75 YRS, HEART DISEASE 1 SISTER(S) . PT HAS A TWIN SISTER WHO SEE\\'S DR. ROCA. \\N1 SISTER IN FIRE @ AGE 36 (AT FIRESIDE REST). SOCIAL HISTORY GENERAL: TOBACCO USE ARE YOU A:NONSMOKER NEVER SMOKER LATEX QUESTIONNAIRE LATEX ALLERGY : HAVE YOU EVER DEVELOPED ANY TYPE OF REACTION AFTER HANDLING LATEX PRODUCTS SUCH RUBBER GLOVES, CONDOMS, DIAPHRAGMS, BALLOONS, SOCKS, OR UNDERWEAR?NO LATEX ALLERGY : HAVE YOU EVER DEVELOPED ANY TYPE OF REACTION DURING OR AFTER DENTAL APPOINTMENT, VAGINAL/RECTAL EXAMINATION, SURGICAL PROCEDURE, OR ANY OTHER EXPOSURE?NO DATE ASKED : 05/16/2019 LATEX RISK : HAVE YOU EVER HAD ANY DIFFICULTY BREATHING OR HIVES AFTER EATING OR HANDLING ANY FRUITS, OR VEGETABLES; SUCH KIWI, BANANAS, STONE FRUITS, OR CHESTNUTSNO LATEX RISK : DO YOU HAVE A PREVIOUS PERSONAL HISTORY OF MORE THAN NINE SURGERIES, SPINA BIFIDA, OR REPEATED CATHERIZATIONS? NO LATEX RISK : ARE YOU FREQUENTLY EXPOSED TO LATEX PRODUCTS IN YOUR OCCUPATION?NO BMI CARE GOAL FOLLOW-UP ABOVE NORMAL BMI FOLLOW-UPDIETARY MANAGEMENT EDUCATION, GUIDANCE, AND COUNSELING ALCOHOL SCREENING DID YOU HAVE A DRINK CONTAINING ALCOHOL IN THE PAST YEAR?NO POINTS0 INTERPRETATIONNEGATIVE RECREATIONAL DRUG USE DRUG USE?NO CAFFEINE CAFFEINE USE?YES 1-2 A DAY SODA SEXUAL HX HAD SEX IN THE LAST 12 MONTHS (VAGINAL, ORAL, OR ANAL)?NO LMP:HYSTERECTOMY HAVE YOU EVER HAD AN STD?NO HIV / HEP-C SCREENING HIV TEST OFFERED TO PATIENT:YES DATE OFFERED:02/25/2018 TEST ACCEPTED:NO HEP-C TEST OFFERED TO PATIENT:YES DATE OFFERED:02/25/2018 REASON:PATIENT DECLINED TEST ACCEPTED:NO REASON:PATIENT DECLINED BROCHURE PROVIDED TO PATIENTNO DECLINED PAMPLET CHRISTIAN [id number] RELIGIOUS LANGUAGE LANGUAGES SPOKEN:JAPANESE EDUCATION LEVEL OF EDUCATION:FINISHED HIGH SCHOOL LEARNING BARRIERS / SPECIAL NEEDS BARRIERS TO LEARNING?NO HEARING IMPAIRED?NO VISION IMPAIRED?NO COGNITIVELY IMPAIRED?NO READINESS TO LEARN?YES LEARNING PREFERENCES?NO EMOTIONAL BARRIERS? 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 DIET: REGULAR, TRYING TO LOSE WEIGHT. EXERCISE: NONE. MARITAL STATUS: /08/2016. OTHERS AT HOME: OLDER DAUGHTER( BOGDAN ANAYA).. NEW PATIENT PAIN DIARY TODAY'S VISIT 02/29/2020 PATIENT DESCRIBES PAIN :BURNING, IT COMES AND GOES, SHOOTING FROM 0-10, WHAT LEVEL IS YOUR PAIN TODAY?5 PRECIPITATING FACTORS STANDING ALLEVIATING FACTORS ELEVATE FEET IMPACT ON FUNCTION YES PAIN CLINIC PFS, CLERGY, PUBLIC HEALTH REFERRALS PFS REFERRAL NEEDED?NO CLERGY REFERRAL NEEDED?NO PUBLIC HEALTH REFERRAL NEEDED?NO WAS THE PROVIDER NOTIFIED OF ANY PERTINENT INFO?YES HAS THE PATIENT BEEN EDUCATED REGARDING HIS/HER PLAN OF CARE?YES HAS THE PATIENT BEEN EDUCATED REGARDING PAIN, THE RISK FOR PAIN, THE IMPORTANCE OF EFFECTIVE PAIN MANAGEMENT, AND THE PAIN ASSESSMENT PROCESS?YES ADVANCE DIRECTIVE ADVANCE DIRECTIVE DISCUSSED WITH PATIENT:YES HCP: GELACIO Moreno [phone] REVIEWED WITH PATIENT 08/31/19 1134 JSREVIEWED WITH PATIENT 12/01/2019 1017 JS. HOSPITALIZATION/MAJOR DIAGNOSTIC PROCEDURE SURGERY REVIEW OF SYSTEMS REVIEWED BY: PROVIDER: JONATHAN LOWERY . CONSTITUTIONAL: ANY CHANGE IN YOUR MEDICAL CONDITION? NO . CHILLS NO . FEVER NO . INFECTION: DO YOU HAVE NEW INFECTIONS? NO . DO YOU HAVE HISTORY OF MRSA? NO . MUSCULOSKELETAL: ANY NEW PATTERNS OF PAIN OR NUMBNESS? NO . GASTROENTEROLOGY: ANY NEW CHANGE IN BOWEL CONTROL? NO . GENITOURINARY: ANY NEW CHANGE IN BLADDER CONTROL? NO . IS THERE A CHANCE YOU COULD BE ? NO . HEMATOLOGY/LYMPH: DO YOU TAKE ANY BLOOD THINNERS? (FOR EXAMPLE- COUMADIN, PLAVIX, AGGRENOX, PLATEL, PRADAXA, OR XARELTO) YES, XARELTO . WHEN WAS YOUR LAST DOSE? DATE: TIME: . NEUROLOGY: HAVE YOU FALLEN IN THE PAST 12 MONTHS? YES, PRIOR TO LAST VISIT . ANY NEW EXTREMITY NUMBNESS OR WEAKNESS? NO . CARDIOLOGY: DO YOU HAVE A PACEMAKER OR DEFIBRILLATOR? NO . RESPIRATORY: HAVE YOU BEEN SICK IN THE PAST WEEK? NO . FEVER NO . FLU LIKE SYMPTOMS? NO . COUGH NO . INTEGUMENTARY: DO YOU HAVE ANY RASHES OR OPEN SORES? NO . ALLERGIC/IMMUNO: ARE YOU ALLERGIC TO IV DYE? NO . ANY NEW ALLERGIES? NO . PSYCHIATRIC: DO YOU HAVE THOUGHTS OF HURTING YOURSELF OR SOMEONE ELSE? NO . ARE YOU ABUSED, NEGLECTED, OR IN AN UNSAFE ENVIRONMENT? NO . ENDOCRINOLOGY: ARE YOU DIABETIC? NO . OTHER: DO YOU NEED ANY PRESCRIPTIONS? NO . IF YES, PLEASE LIST: ____ . ANY NEW PROBLEMS WITH YOUR MEDICATIONS? NO . WHEN DID YOU LAST EAT? ____ . WHEN DID YOU LAST DRINK? ____ . WHAT DID YOU LAST DRINK? ____ . NAME OF PERSON DRIVING YOU HOME? ____ . DO YOU HAVE ANY OTHER QUESTIONS OR CONCERNS NO . ASSESSMENTS PAIN IN RIGHT KNEE - M25.561 (PRIMARY) CHRONIC PRESCRIPTION OPIATE USE - Z79.891 TREATMENT PAIN IN RIGHT KNEE CONTINUE CYCLOBENZAPRINE HCL TABLET, 10 MG, 1 TABLET NEEDED, ORALLY, BID CONTINUE METHADONE HCL TABLET, 10 MG, 1 TABLET, ORALLY, Q 12 HOURS MDD=2 CHRONIC PAIN CONTINUE NORCO TABLET, 10-325 MG, 1 TABLET NEEDED, ORALLY, Q12H PRN MDD2 NOTES: ADVISED TO CONTINUE CURRENT CHRONIC PAIN MEDICATION. RETURN TO CLINIC VISIT FOR URINE TOXICOLOGY AND MED MANAGEMENT IN 2 MONTHS. TOTAL TIME SPENT DURING TELEPHONE VISIT WAS APPROXIMATELY 11 MINUTES. OTHERS CLINICAL NOTES: PRE SCREENING CALL DONE 02/29/20 EM. DISPOSITION & COMMUNICATION FOLLOW UP IN CLINIC VISIT 2 MOS (REASON: BILAT. KNEE PAIN R>L-MED MGMNT) ELECTRONICALLY SIGNED BY BEVERLEY RICO ON 03/02/2020 AT 01:57 PM EDT DISCLAIMER : THIS IS A VISIT SUMMARY EXTRACTED FROM THE [facility] CHART. IT IS NOT A COPY OF THE [facility] PROGRESS NOTE. ANA
== END ==
LOC: M PAIN 11:30
PROVIDERS: ATTEND Nurse Practitioner Family
DX: M25.561 Pain in right knee (principal); G89.29 Other chronic pain; K21.9 Gastro-esophageal reflux disease without esophagitis; I10 Essential (primary) hypertension; Z96.653 Presence of artificial knee joint, bilateral; Z79.01 Long term (current) use of anticoagulants; Z79.891 Long term (current) use of opiate analgesic; Z79.899 Other long term (current) drug therapy

== ENCOUNTER → 2020-05-08 | Outpatient (CLI) | payer MEDICARE, MEDICAID ==
--- NOTE | 2020-05-12 04:22 | ECWPNPC ---
PATIENT NAME: LUTHER ANAYA : 1955 GENDER: FEMALE VISIT DATE: 05/08/2020 DISCHARGE DATE: 05/08/20 1229 VISIT LOCKED DATE TIME: PHYSICIAN: JONATHAN HORN RESOURCE: JONATHAN HORN REASON FOR APPOINTMENT 1. BILAT. KNEE PAIN R>L-MED MGMNT HISTORY OF PRESENT ILLNESS GENERAL: HERE FOR FOLLOW-UP AND MEDICINE MANAGEMENT FOR CHRONIC BILATERAL KNEE PAIN, RIGHT GREATER THAN LEFT. FINDS CURRENT CHRONIC PAIN MEDICATION EFFECTIVE AT REDUCING PAIN AND KEEPING HER FUNCTIONAL. DENIES ADVERSE SIDE EFFECTS. -. FALL RISK SCREENING: SCREENING :TWO OR MORE FALLS WITHOUT INJURY IN THE PAST YEAR FELL DOWN THE STAIRS AUGUST 26 WAS NOT HURT PAIN SCREENING: PATIENT HAS A COMPLAINT OF ACUTE OR CHRONIC PAIN :YES LOCATION OF PAIN: BILATERAL KNEE INTENSITY OF PAIN (SCALE OF 1 TO 10):5 WHAT DOES YOUR PAIN FEEL LIKE:ACHING, BURNING, TENDER DURATION: PT VERBALIZES IT CHANGES ALL THE TIME PAIN IS INCREASED BY:ACTIVITIES PAIN IS DECREASED BY:SITTING NURSING NOTE: -. PAIN CENTER INTAKE QUESTIONS: DO YOU HAVE A HISTORY OF MRSA? :NO DO YOU TAKE A BLOOD THINNERS? :NO DO YOU HAVE ANY BLEEDING DISORDERS? :NO ANY NEW NUMBNESS OR WEAKNESS IN YOUR LEGS OR ARMS? :NO ANY PACEMAKER,DEFIBRILLATOR, OR DORSAL COLUMN STIMULATOR? :NO DO YOU HAVE ANY RASHES OR OPEN SORES? :NO ARE YOU ALLERGIC TO IV DYE? :NO ARE YOU DIABETIC? :NO ANY NEW PROBLEMS WITH YOUR MEDICATIONS? :NO HAVE YOU RECEIVED A VACCINE IN THE PAST 30 DAYS? :NO DO YOU PLAN TO RECEIVE A VACCINE IN THE NEXT 21 DAYS? :NO DO YOU NEED ANY PRESCRIPTION? :NO DO YOU TAKE ANY IMMUNOSUPPRESSIVE MEDICATIONS? :NO IS THERE A CHANCE YOU COULD BE ? :NO ARE YOU BREAST FEEDING? :NO CURRENT MEDICATIONS TAKING METOPROLOL TARTRATE 50 MG TABLET 1 TABLET WITH FOOD ORALLY DAILY TAKING OMEPRAZOLE 40 MG CAPSULE DELAYED RELEASE 1 CAPSULE ORALLY ONCE A DAY TAKING PROZAC 20 MG CAPSULE 1 CAPSULE ORALLY ONCE A DAY TAKING XARELTO 20 MG TABLET TAKE 1 TABLET BY MOUTH ONCE DAILY WITH FOOD TAKING LISINOPRIL-HYDROCHLOROTHIAZIDE 20-25 MG TABLET 1 TABLET ORALLY ONCE A DAY TAKING CYCLOBENZAPRINE HCL 10 MG TABLET 1 TABLET NEEDED ORALLY BID TAKING ZOFRAN 8 MG TABLET 1 TABLET ORALLY THREE TIMES DAILY PRN NAUSEA TAKING NORCO 10-325 MG TABLET 1 TABLET NEEDED ORALLY Q12H PRN MDD2 TAKING METHADONE HCL 10 MG TABLET 1 TABLET ORALLY Q 12 HOURS MDD=2 CHRONIC PAIN MEDICATION LIST REVIEWED AND RECONCILED WITH THE PATIENT PAST MEDICAL HISTORY GERD HTN ATRIAL FIB ON XARELTO STRESS TEST -DR. TARANGO VARICOSE VEINS CHRONIC TODD KNEE PAIN CHRONIC PRESCRIPTION OPOID USEAGE GAIT DISTURBANCE 02/25/18-03/08/2019- REFUSES COLONOSCOPY PANIC ATTACKS STARTED 2018 ALLERGIES N.K.D.A. SURGICAL HISTORY TODD TOTAL KNEES 2012 PARTIAL HYSTERECTOMY FAMILY HISTORY FATHER: 53 YRS, MELONOMA, DIAGNOSED WITH OTHER MALIGNANT NEOPLASM OF UNSPECIFIED SITE MOTHER: 75 YRS, HEART DISEASE 1 SISTER(S) . PT HAS A TWIN SISTER WHO SEE\\'S DR. ROCA. \\N1 SISTER IN FIRE @ AGE 36 (AT FIRESIDE REST). SOCIAL HISTORY GENERAL: TOBACCO USE ARE YOU A:NONSMOKER NEVER SMOKER LATEX QUESTIONNAIRE LATEX ALLERGY : HAVE YOU EVER DEVELOPED ANY TYPE OF REACTION AFTER HANDLING LATEX PRODUCTS SUCH RUBBER GLOVES, CONDOMS, DIAPHRAGMS, BALLOONS, SOCKS, OR UNDERWEAR?NO LATEX ALLERGY : HAVE YOU EVER DEVELOPED ANY TYPE OF REACTION DURING OR AFTER DENTAL APPOINTMENT, VAGINAL/RECTAL EXAMINATION, SURGICAL PROCEDURE, OR ANY OTHER EXPOSURE?NO DATE ASKED : 05/16/2019 LATEX RISK : HAVE YOU EVER HAD ANY DIFFICULTY BREATHING OR HIVES AFTER EATING OR HANDLING ANY FRUITS, OR VEGETABLES; SUCH KIWI, BANANAS, STONE FRUITS, OR CHESTNUTSNO LATEX RISK : DO YOU HAVE A PREVIOUS PERSONAL HISTORY OF MORE THAN NINE SURGERIES, SPINA BIFIDA, OR REPEATED CATHERIZATIONS? NO LATEX RISK : ARE YOU FREQUENTLY EXPOSED TO LATEX PRODUCTS IN YOUR OCCUPATION?NO BMI CARE GOAL FOLLOW-UP ABOVE NORMAL BMI FOLLOW-UPDIETARY MANAGEMENT EDUCATION, GUIDANCE, AND COUNSELING ALCOHOL SCREENING DID YOU HAVE A DRINK CONTAINING ALCOHOL IN THE PAST YEAR?NO POINTS0 INTERPRETATIONNEGATIVE RECREATIONAL DRUG USE DRUG USE?NO CAFFEINE CAFFEINE USE?YES 1-2 A DAY SODA SEXUAL HX HAD SEX IN THE LAST 12 MONTHS (VAGINAL, ORAL, OR ANAL)?NO LMP:HYSTERECTOMY HAVE YOU EVER HAD AN STD?NO HIV / HEP-C SCREENING HIV TEST OFFERED TO PATIENT:YES DATE OFFERED:02/25/2018 TEST ACCEPTED:NO HEP-C TEST OFFERED TO PATIENT:YES DATE OFFERED:02/25/2018 REASON:PATIENT DECLINED TEST ACCEPTED:NO REASON:PATIENT DECLINED BROCHURE PROVIDED TO PATIENTNO DECLINED PAMPLET PENTECOSTALISM [id number] SHINTO LANGUAGE LANGUAGES SPOKEN:SIERRA LEONEAN EDUCATION LEVEL OF EDUCATION:FINISHED HIGH SCHOOL LEARNING BARRIERS / SPECIAL NEEDS BARRIERS TO LEARNING?NO HEARING IMPAIRED?NO VISION IMPAIRED?NO COGNITIVELY IMPAIRED?NO READINESS TO LEARN?YES LEARNING PREFERENCES?NO EMOTIONAL BARRIERS? 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 DIET: REGULAR, TRYING TO LOSE WEIGHT. EXERCISE: NONE. MARITAL STATUS: /08/2016. OTHERS AT HOME: OLDER DAUGHTER( BOGDAN ANAYA).. NEW PATIENT PAIN DIARY TODAY'S VISIT 02/29/2020 PATIENT DESCRIBES PAIN :BURNING, IT COMES AND GOES, SHOOTING FROM 0-10, WHAT LEVEL IS YOUR PAIN TODAY?5 PRECIPITATING FACTORS STANDING ALLEVIATING FACTORS ELEVATE FEET IMPACT ON FUNCTION YES PAIN CLINIC PFS, CLERGY, PUBLIC HEALTH REFERRALS PFS REFERRAL NEEDED?NO CLERGY REFERRAL NEEDED?NO PUBLIC HEALTH REFERRAL NEEDED?NO WAS THE PROVIDER NOTIFIED OF ANY PERTINENT INFO?YES HAS THE PATIENT BEEN EDUCATED REGARDING HIS/HER PLAN OF CARE?YES HAS THE PATIENT BEEN EDUCATED REGARDING PAIN, THE RISK FOR PAIN, THE IMPORTANCE OF EFFECTIVE PAIN MANAGEMENT, AND THE PAIN ASSESSMENT PROCESS?YES ADVANCE DIRECTIVE ADVANCE DIRECTIVE DISCUSSED WITH PATIENT:YES HCP: GELACIO MEDEIROS - [phone] REVIEWED WITH PATIENT 08/31/19 1134 JSREVIEWED WITH PATIENT 12/01/2019 1017 JS. HOSPITALIZATION/MAJOR DIAGNOSTIC PROCEDURE SURGERY REVIEW OF SYSTEMS CONSTITUTIONAL: ANY RECENT FEVER NO . CHILLS NO . WEIGHT CHANGE OF UNKNOWN REASONS NO . GASTROENTEROLOGY: NEW UNEXPLAINABLE CHANGES IN BOWEL CONTROL NO . CONSTIPATION NO . GENITOURINARY: ANY NEW CHANGE IN BLADDER CONTROL? NO . NEUROLOGY: NEW ONSET DIZZINESS OR NEUROLOGICAL CHANGES NOT MENTIONED NO . NEW NUMBNESS OR PAIN PATTERNS NOT MENTIONED AND PERTINENT TO TODAY'S VISIT NO . CARDIOLOGY: NEW CHEST PRESSURE NO . NEW CHEST PAIN NO . RESPIRATORY: UNEXPLAINABLE COUGH NO . NEW SHORTNESS OF BREATH NO . VITAL SIGNS WT 297.6 LBS, HT 62 IN, BMI 54.43 INDEX, BP 133/95 MM HG, HR 113 /MIN, RR 18 /MIN, TEMP 97.7 F, OXYGEN SAT % 92%, NA INITIALS AW 1113. EXAMINATION GENERAL EXAMINATION: GENERAL AWAKE,ALERT ,PLEASANT . PSYCH AFFECT NORMAL . LUNGS: LUNG ASHLEY ARE CLEAR TO AUSCULTATION BILATERALLY. GOOD MOVEMENT OF AIR . HEART: S1, S2 IN A SLIGHTLY IRREGULAR.HX OF ATRIAL FIBRILLATION ON XARELTO. ASSESSMENTS PAIN IN RIGHT KNEE - M25.561 (PRIMARY) CHRONIC PRESCRIPTION OPIATE USE - Z79.891 TREATMENT PAIN IN RIGHT KNEE REFILL CYCLOBENZAPRINE HCL TABLET, 10 MG, 1 TABLET NEEDED, ORALLY, BID, 30 DAYS, 60 TABLET, REFILLS 5 REFILL NORCO TABLET, 10-325 MG, 1 TABLET NEEDED, ORALLY, Q12H PRN MDD2, 30 DAYS, 60, REFILLS 0 REFILL METHADONE HCL TABLET, 10 MG, 1 TABLET, ORALLY, Q 12 HOURS MDD=2 CHRONIC PAIN, 30 DAYS, 60, REFILLS 0 NOTES: ISTOP REGISTRY REVIEWED AND DEMONSTRATES COMPLLIANCE. BRINGS IN MEDICATIONS WHICH IS APPROPRIATE FOR WHAT WAS DISPENSED. RECENT URINE TOXICOLOGY REVIEWED. NO UNAUTHORIZED MEDICATIONS. NO ILLICIT SUBSTANCES AND PRESCRIBED MEDICATIONS WERE PRESENT. URINE TOX TODAY RISKS OF NARCOTIC/OPIOD MEDICATIONS INCLUDES BUT IS NOT LIMITED TO RISK OF DEPENDANCE/DEVELOPMENT OF ADDICTION, MOOD DISTURBANCE AND DEPRESSION, OSTEOPOROSIS, HORMONAL AND LABIDAL CHANGES, RESPIRATORY DEPRESSION AND . PATIENT IS ADVISED NOT TO DRIVE OR DRINK ALCOHOL WHILE ON THESE MEDICATIONS,. PROCEDURE CODES FA211 ESTABILISHED PATIENT [facility] CHARGE DISPOSITION & COMMUNICATION FOLLOW UP 3 MONTHS (REASON: MED MANAGEMENT/BILATERAL KNEE PAIN) ELECTRONICALLY SIGNED BY BEVERLEY RICO ON 05/11/2020 AT 08:58 AM EDT DISCLAIMER : THIS IS A VISIT SUMMARY EXTRACTED FROM THE [employer] CHART. IT IS NOT A COPY OF THE [employer] PROGRESS NOTE. MTDD
== END ==
LOC: M PAIN 11:00
PROVIDERS: ATTEND Nurse Practitioner Family
DX: M25.561 Pain in right knee (principal); Z79.891 Long term (current) use of opiate analgesic

== ENCOUNTER → 2020-08-16 | Outpatient (CLI) | payer MEDICARE, MEDICAID ==
--- NOTE | 2020-08-17 10:20 | ECWPNPC ---
PATIENT NAME: LUTHER ANAYA : 1955 GENDER: FEMALE VISIT DATE: 08/16/2020 DISCHARGE DATE: 08/16/20 1203 VISIT LOCKED DATE TIME: PHYSICIAN: JONATHAN HORN PHYSICIAN PAGER NO: ACTIVE RESOURCE: JONATHAN HORN REASON FOR APPOINTMENT 1. MED MANAGEMENT/BILATERAL KNEE PAIN HISTORY OF PRESENT ILLNESS DEPRESSION SCREENING: PHQ-2 (2015 EDITION) LITTLE INTEREST OR PLEASURE IN DOING THINGS?NOT AT ALL FEELING DOWN, DEPRESSED, OR HOPELESS?NOT AT ALL TOTAL SCORE0 GENERAL: HERE FOR FOLLOW-UP AND MEDICINE MANAGEMENT FOR CHRONIC BILATERAL KNEE PAIN, RIGHT GREATER THAN LEFT. FINDS CURRENT CHRONIC PAIN MEDICATION EFFECTIVE AT REDUCING PAIN AND KEEPING HER FUNCTIONAL. DENIES ADVERSE SIDE EFFECTS. - -. FALL RISK SCREENING: SCREENING :NO FALLS REPORTED IN THE LAST YEAR NONE PAIN SCREENING: PATIENT HAS A COMPLAINT OF ACUTE OR CHRONIC PAIN :YES LOCATION OF PAIN:LOW BACK, KNEES INTENSITY OF PAIN (SCALE OF 1 TO 10):4 LOWER BACK 5 WELL WHAT DOES YOUR PAIN FEEL LIKE:ACHING, BURNING DURATION:CONTINOUS PAIN IS INCREASED BY:ACTIVITIES, PROLONGED STANDING PAIN IS DECREASED BY:USE OF PAIN MEDICATIONS, SITTING NURSING NOTE: -. PAIN CENTER INTAKE QUESTIONS: DO YOU HAVE A HISTORY OF MRSA? :NO DO YOU TAKE A BLOOD THINNERS? :YES DO YOU HAVE ANY BLEEDING DISORDERS? :NO ANY NEW NUMBNESS OR WEAKNESS IN YOUR LEGS OR ARMS? :NO ANY PACEMAKER,DEFIBRILLATOR, OR DORSAL COLUMN STIMULATOR? :NO DO YOU HAVE ANY RASHES OR OPEN SORES? :NO ARE YOU ALLERGIC TO IV DYE? :NO ARE YOU DIABETIC? :NO ANY NEW PROBLEMS WITH YOUR MEDICATIONS? :NO HAVE YOU RECEIVED A VACCINE IN THE PAST 30 DAYS? :YES FLU VAC OVER A MONTH AGO DO YOU PLAN TO RECEIVE A VACCINE IN THE NEXT 21 DAYS? :NO DO YOU NEED ANY PRESCRIPTION? :YES DO YOU TAKE ANY IMMUNOSUPPRESSIVE MEDICATIONS? :NO IS THERE A CHANCE YOU COULD BE ? :NO ARE YOU BREAST FEEDING? :NO CURRENT MEDICATIONS TAKING METOPROLOL TARTRATE 50 MG TABLET 1 TABLET WITH FOOD ORALLY DAILY TAKING OMEPRAZOLE 40 MG CAPSULE DELAYED RELEASE 1 CAPSULE ORALLY ONCE A DAY TAKING PROZAC 20 MG CAPSULE 1 CAPSULE ORALLY ONCE A DAY TAKING XARELTO 20 MG TABLET TAKE 1 TABLET BY MOUTH ONCE DAILY WITH FOOD TAKING ZOFRAN 8 MG TABLET 1 TABLET ORALLY THREE TIMES DAILY PRN NAUSEA TAKING CYCLOBENZAPRINE HCL 10 MG TABLET 1 TABLET NEEDED ORALLY BID TAKING NORCO 10-325 MG TABLET 1 TABLET NEEDED ORALLY Q12H PRN MDD2 TAKING METHADONE HCL 10 MG TABLET 1 TABLET ORALLY Q 12 HOURS MDD=2 CHRONIC PAIN TAKING LISINOPRIL-HYDROCHLOROTHIAZIDE 20-25 MG TABLET 1 TABLET ORALLY ONCE A DAY MEDICATION LIST REVIEWED AND RECONCILED WITH THE PATIENT PAST MEDICAL HISTORY GERD HTN ATRIAL FIB ON XARELTO STRESS TEST -DR. TARANGO VARICOSE VEINS CHRONIC TODD KNEE PAIN CHRONIC PRESCRIPTION OPOID USEAGE GAIT DISTURBANCE 02/25/18-03/08/2019- REFUSES COLONOSCOPY PANIC ATTACKS STARTED 2019 ALLERGIES N.K.D.A. SURGICAL HISTORY TODD TOTAL KNEES 2012 PARTIAL HYSTERECTOMY FAMILY HISTORY FATHER: 53 YRS, MELONOMA, DIAGNOSED WITH OTHER MALIGNANT NEOPLASM OF UNSPECIFIED SITE MOTHER: 75 YRS, HEART DISEASE 1 SISTER(S) . PT HAS A TWIN SISTER WHO SEE\\'S DR. ROCA. \\N1 SISTER IN FIRE @ AGE 36 (AT FIRESIDE REST). SOCIAL HISTORY GENERAL: TOBACCO USE ARE YOU A:NONSMOKER NEVER SMOKER LATEX QUESTIONNAIRE LATEX ALLERGY : HAVE YOU EVER DEVELOPED ANY TYPE OF REACTION AFTER HANDLING LATEX PRODUCTS SUCH RUBBER GLOVES, CONDOMS, DIAPHRAGMS, BALLOONS, SOCKS, OR UNDERWEAR?NO LATEX ALLERGY : HAVE YOU EVER DEVELOPED ANY TYPE OF REACTION DURING OR AFTER DENTAL APPOINTMENT, VAGINAL/RECTAL EXAMINATION, SURGICAL PROCEDURE, OR ANY OTHER EXPOSURE?NO LATEX RISK : HAVE YOU EVER HAD ANY DIFFICULTY BREATHING OR HIVES AFTER EATING OR HANDLING ANY FRUITS, OR VEGETABLES; SUCH KIWI, BANANAS, STONE FRUITS, OR CHESTNUTSNO LATEX RISK : DO YOU HAVE A PREVIOUS PERSONAL HISTORY OF MORE THAN NINE SURGERIES, SPINA BIFIDA, OR REPEATED CATHERIZATIONS? NO LATEX RISK : ARE YOU FREQUENTLY EXPOSED TO LATEX PRODUCTS IN YOUR OCCUPATION?NO DATE ASKED : 08/16/2020 BMI CARE GOAL FOLLOW-UP ABOVE NORMAL BMI FOLLOW-UPDIETARY MANAGEMENT EDUCATION, GUIDANCE, AND COUNSELING ALCOHOL SCREENING DID YOU HAVE A DRINK CONTAINING ALCOHOL IN THE PAST YEAR?NO POINTS0 INTERPRETATIONNEGATIVE RECREATIONAL DRUG USE DRUG USE?NO CAFFEINE CAFFEINE USE?YES 1-2 A DAY SODA SEXUAL HX HAD SEX IN THE LAST 12 MONTHS (VAGINAL, ORAL, OR ANAL)?NO LMP:HYSTERECTOMY HAVE YOU EVER HAD AN STD?NO HIV / HEP-C SCREENING HIV TEST OFFERED TO PATIENT:YES DATE OFFERED:02/25/2018 TEST ACCEPTED:NO HEP-C TEST OFFERED TO PATIENT:YES DATE OFFERED:02/25/2018 REASON:PATIENT DECLINED TEST ACCEPTED:NO REASON:PATIENT DECLINED BROCHURE PROVIDED TO PATIENTNO DECLINED PAMPLET [employer] [id number] LANGUAGE LANGUAGES SPOKEN:PORTUGUESE EDUCATION LEVEL OF EDUCATION:FINISHED HIGH SCHOOL LEARNING BARRIERS / SPECIAL NEEDS BARRIERS TO LEARNING?NO HEARING IMPAIRED?NO VISION IMPAIRED?NO COGNITIVELY IMPAIRED?NO READINESS TO LEARN?YES LEARNING PREFERENCES?NO EMOTIONAL BARRIERS? 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 DIET: REGULAR, TRYING TO LOSE WEIGHT. EXERCISE: NONE. MARITAL STATUS: /08/2016. OTHERS AT HOME: OLDER DAUGHTER( BOGDAN ANAYA).. NEW PATIENT PAIN DIARY TODAY'S VISIT 02/29/2020, PATIENT DESCRIBES PAIN : BURNING, IT COMES AND GOES, SHOOTING, FROM 0-10, WHAT LEVEL IS YOUR PAIN TODAY? 5, PRECIPITATING FACTORS STANDING, ALLEVIATING FACTORS ELEVATE FEET, IMPACT ON FUNCTION YES. PAIN CLINIC PFS, CLERGY, PUBLIC HEALTH REFERRALS PFS REFERRAL NEEDED?NO CLERGY REFERRAL NEEDED?NO PUBLIC HEALTH REFERRAL NEEDED?NO WAS THE PROVIDER NOTIFIED OF ANY PERTINENT INFO?YES HAS THE PATIENT BEEN EDUCATED REGARDING HIS/HER PLAN OF CARE?YES HAS THE PATIENT BEEN EDUCATED REGARDING PAIN, THE RISK FOR PAIN, THE IMPORTANCE OF EFFECTIVE PAIN MANAGEMENT, AND THE PAIN ASSESSMENT PROCESS?YES ADVANCE DIRECTIVE ADVANCE DIRECTIVE DISCUSSED WITH PATIENT:YES HCP: GELACIO MEDEIROS - [phone] REVIEWED WITH PATIENT 08/31/19 1134 JSREVIEWED WITH PATIENT 12/01/2019 1017 JS. HOSPITALIZATION/MAJOR DIAGNOSTIC PROCEDURE SURGERY REVIEW OF SYSTEMS CONSTITUTIONAL: ANY RECENT FEVER NO . CHILLS NO . WEIGHT CHANGE OF UNKNOWN REASONS NO . GASTROENTEROLOGY: NEW UNEXPLAINABLE CHANGES IN BOWEL CONTROL NO . CONSTIPATION NO . GENITOURINARY: ANY NEW CHANGE IN BLADDER CONTROL? NO . NEUROLOGY: NEW ONSET DIZZINESS OR NEUROLOGICAL CHANGES NOT MENTIONED NO . NEW NUMBNESS OR PAIN PATTERNS NOT MENTIONED AND PERTINENT TO TODAY'S VISIT NO . CARDIOLOGY: NEW CHEST PRESSURE NO . NEW CHEST PAIN NO . RESPIRATORY: UNEXPLAINABLE COUGH NO . NEW SHORTNESS OF BREATH NO . VITAL SIGNS WT 297.2 LBS, HT 62 IN, BMI 54.35 INDEX, BP 180/50 MM HG, HR 124 /MIN, RR 18 /MIN, TEMP 97.6 F, OXYGEN SAT % 94%, NA INITIALS AW 1110. EXAMINATION GENERAL EXAMINATION: GENERAL AWAKE,ALERT ,PLEASANT . PSYCH AFFECT NORMAL . LUNGS: LUNG ASHLEY ARE CLEAR TO AUSCULTATION BILATERALLY. GOOD MOVEMENT OF AIR . HEART: S1, S2 IN A SLIGHTLY IRREGULAR.HX OF ATRIAL FIBRILLATION ON XARELTO. ASSESSMENTS PAIN IN RIGHT KNEE - M25.561 (PRIMARY) CHRONIC PRESCRIPTION OPIATE USE - Z79.891 TREATMENT PAIN IN RIGHT KNEE REFILL NORCO TABLET, 10-325 MG, 1 TABLET NEEDED, ORALLY, Q12H PRN MDD2, 30 DAYS, 60, REFILLS 0 REFILL METHADONE HCL TABLET, 10 MG, 1 TABLET, ORALLY, Q 12 HOURS MDD=2 CHRONIC PAIN, 30 DAYS, 60, REFILLS 0 NOTES: ISTOP REGISTRY REVIEWED AND DEMONSTRATES COMPLLIANCE. BRINGS IN MEDICATIONS WHICH IS APPROPRIATE FOR WHAT WAS DISPENSED. RECENT URINE TOXICOLOGY REVIEWED. NO UNAUTHORIZED MEDICATIONS. NO ILLICIT SUBSTANCES AND PRESCRIBED MEDICATIONS WERE PRESENT. , RISKS OF NARCOTIC/OPIOD MEDICATIONS INCLUDES BUT IS NOT LIMITED TO RISK OF DEPENDANCE/DEVELOPMENT OF ADDICTION, MOOD DISTURBANCE AND DEPRESSION, OSTEOPOROSIS, HORMONAL AND LABIDAL CHANGES, RESPIRATORY DEPRESSION AND . PATIENT IS ADVISED NOT TO DRIVE OR DRINK ALCOHOL WHILE ON THESE MEDICATIONS. PROCEDURE CODES FA211 ESTABILISHED PATIENT [facility] CHARGE DISPOSITION & COMMUNICATION FOLLOW UP 3 MONTHS (REASON: MEDICATION MANAGEMENT/LOW BACK PAIN) ELECTRONICALLY SIGNED BY BEVERLEY RICO ON 08/17/2020 AT 10:19 AM EDT DISCLAIMER : THIS IS A VISIT SUMMARY EXTRACTED FROM THE [employer] CHART. IT IS NOT A COPY OF THE [employer] PROGRESS NOTE. MTDD
== END ==
LOC: M PAIN 11:00
PROVIDERS: ATTEND Nurse Practitioner Family
DX: M25.561 Pain in right knee (principal); G89.29 Other chronic pain; K21.9 Gastro-esophageal reflux disease without esophagitis; I10 Essential (primary) hypertension; Z86.59 Personal history of other mental and behavioral disorders; E66.01 Morbid (severe) obesity due to excess calories; Z68.43 Body mass index [BMI] 50.0-59.9, adult; Z79.01 Long term (current) use of anticoagulants; Z79.891 Long term (current) use of opiate analgesic; Z79.899 Other long term (current) drug therapy

== ENCOUNTER → 2020-12-12 | Outpatient (CLI) | payer MEDICARE, MEDICAID ==
--- NOTE | 2020-12-14 01:36 | ECWPNPC ---
PATIENT NAME: LUTHER ANAYA : 1955 GENDER: FEMALE VISIT DATE: 12/12/2020 DISCHARGE DATE: 12/12/20 1040 VISIT LOCKED DATE TIME: PHYSICIAN: JONATHAN HORN PHYSICIAN PAGER NO: ACTIVE RESOURCE: JONATHAN HORN REASON FOR APPOINTMENT 1. MED MANAGEMENT HISTORY OF PRESENT ILLNESS GENERAL: HERE FOR FOLLOW-UP AND MEDICINE MANAGEMENT FOR CHRONIC BILATERAL KNEE PAIN, RIGHT GREATER THAN LEFT. FINDS CURRENT CHRONIC PAIN MEDICATION EFFECTIVE AT REDUCING PAIN AND KEEPING HER FUNCTIONAL. DENIES ADVERSE SIDE EFFECTS. - - -. FALL RISK SCREENING: SCREENING :NO FALLS REPORTED IN THE LAST YEAR PAIN SCREENING: PATIENT HAS A COMPLAINT OF ACUTE OR CHRONIC PAIN :YES LOCATION OF PAIN:KNEES INTENSITY OF PAIN (SCALE OF 1 TO 10):6 WHAT DOES YOUR PAIN FEEL LIKE:ACHING, BURNING, SHARP, STABBING, THROBBING DURATION:CONTINOUS, CONSTANT, ALL DAY PAIN IS INCREASED BY:ACTIVITIES, PROLONGED STANDING PAIN IS DECREASED BY:USE OF PAIN MEDICATIONS NURSING NOTE: -. PAIN CENTER INTAKE QUESTIONS: DO YOU HAVE A HISTORY OF MRSA? :NO DO YOU TAKE A BLOOD THINNERS? :YES DO YOU HAVE ANY BLEEDING DISORDERS? :NO ANY NEW NUMBNESS OR WEAKNESS IN YOUR LEGS OR ARMS? :NO ANY PACEMAKER,DEFIBRILLATOR, OR DORSAL COLUMN STIMULATOR? :NO DO YOU HAVE ANY RASHES OR OPEN SORES? :NO ARE YOU ALLERGIC TO IV DYE? :NO ARE YOU DIABETIC? :NO ANY NEW PROBLEMS WITH YOUR MEDICATIONS? :NO HAVE YOU RECEIVED A VACCINE IN THE PAST 30 DAYS? :YES FLU VAC OVER A MONTH AGO DO YOU PLAN TO RECEIVE A VACCINE IN THE NEXT 21 DAYS? :NO DO YOU NEED ANY PRESCRIPTION? :NO DO YOU TAKE ANY IMMUNOSUPPRESSIVE MEDICATIONS? :NO IS THERE A CHANCE YOU COULD BE ? :NO ARE YOU BREAST FEEDING? :NO CURRENT MEDICATIONS TAKING OMEPRAZOLE 40 MG CAPSULE DELAYED RELEASE 1 CAPSULE ORALLY ONCE A DAY TAKING LISINOPRIL-HYDROCHLOROTHIAZIDE 20-25 MG TABLET 1 TABLET ORALLY ONCE A DAY TAKING METOPROLOL TARTRATE 50 MG TABLET 1 TABLET WITH FOOD ORALLY DAILY TAKING XARELTO 20 MG TABLET TAKE 1 TABLET BY MOUTH ONCE DAILY WITH FOOD TAKING ZOFRAN 8 MG TABLET 1 TABLET ORALLY THREE TIMES DAILY PRN NAUSEA TAKING METHADONE HCL 10 MG TABLET 1 TABLET ORALLY Q 12 HOURS MDD=2 CHRONIC PAIN TAKING CYCLOBENZAPRINE HCL 10 MG TABLET 1 TABLET NEEDED ORALLY BID TAKING PROZAC 20 MG CAPSULE 1 CAPSULE ORALLY ONCE A DAY TAKING FLUOXETINE HCL 10 MG CAPSULE 1 CAPSULE ORALLY ONCE A DAY TAKING FLUOXETINE HCL 20 MG CAPSULE 1 CAPSULE ORALLY ONCE A DAY TAKING HYDROCODONE-ACETAMINOPHEN 10-325 MG TABLET 1 TABLET NEEDED ORALLY EVERY 6 HRS NOT-TAKING NORCO 10-325 MG TABLET 1 TABLET NEEDED ORALLY Q12H PRN MDD2 MEDICATION LIST REVIEWED AND RECONCILED WITH THE PATIENT PAST MEDICAL HISTORY GERD HTN ATRIAL FIB ON XARELTO STRESS TEST -DR. TARANGO VARICOSE VEINS CHRONIC TODD KNEE PAIN CHRONIC PRESCRIPTION OPOID USEAGE GAIT DISTURBANCE 02/25/18-03/08/2019- REFUSES COLONOSCOPY PANIC ATTACKS STARTED 2019 ALLERGIES N.K.D.A. SOCIAL HISTORY GENERAL: TOBACCO USE ARE YOU A:NONSMOKER NEVER SMOKER LATEX QUESTIONNAIRE LATEX ALLERGY : HAVE YOU EVER DEVELOPED ANY TYPE OF REACTION AFTER HANDLING LATEX PRODUCTS SUCH RUBBER GLOVES, CONDOMS, DIAPHRAGMS, BALLOONS, SOCKS, OR UNDERWEAR?NO LATEX ALLERGY : HAVE YOU EVER DEVELOPED ANY TYPE OF REACTION DURING OR AFTER DENTAL APPOINTMENT, VAGINAL/RECTAL EXAMINATION, SURGICAL PROCEDURE, OR ANY OTHER EXPOSURE?NO LATEX RISK : HAVE YOU EVER HAD ANY DIFFICULTY BREATHING OR HIVES AFTER EATING OR HANDLING ANY FRUITS, OR VEGETABLES; SUCH KIWI, BANANAS, STONE FRUITS, OR CHESTNUTSNO LATEX RISK : DO YOU HAVE A PREVIOUS PERSONAL HISTORY OF MORE THAN NINE SURGERIES, SPINA BIFIDA, OR REPEATED CATHERIZATIONS? NO LATEX RISK : ARE YOU FREQUENTLY EXPOSED TO LATEX PRODUCTS IN YOUR OCCUPATION?NO DATE ASKED : 12/12/2020 ALCOHOL USE: NO. BMI CARE GOAL FOLLOW-UP ABOVE NORMAL BMI FOLLOW-UPDIETARY MANAGEMENT EDUCATION, GUIDANCE, AND COUNSELING ALCOHOL SCREENING DID YOU HAVE A DRINK CONTAINING ALCOHOL IN THE PAST YEAR?NO POINTS0 INTERPRETATIONNEGATIVE RECREATIONAL DRUG USE DRUG USE?NO CAFFEINE CAFFEINE USE?YES 1-2 A DAY SODA SEXUAL HX HAD SEX IN THE LAST 12 MONTHS (VAGINAL, ORAL, OR ANAL)?NO LMP:HYSTERECTOMY HAVE YOU EVER HAD AN STD?NO HIV / HEP-C SCREENING HIV TEST OFFERED TO PATIENT:YES DATE OFFERED:02/25/2018 TEST ACCEPTED:NO HEP-C TEST OFFERED TO PATIENT:YES DATE OFFERED:02/25/2018 REASON:PATIENT DECLINED TEST ACCEPTED:NO REASON:PATIENT DECLINED BROCHURE PROVIDED TO PATIENTNO DECLINED PAMPLET LUTHERAN [id number] LUTHERAN LANGUAGE LANGUAGES SPOKEN:URDU EDUCATION LEVEL OF EDUCATION:FINISHED HIGH SCHOOL LEARNING BARRIERS / SPECIAL NEEDS BARRIERS TO LEARNING?NO HEARING IMPAIRED?NO VISION IMPAIRED?NO COGNITIVELY IMPAIRED?NO READINESS TO LEARN?YES LEARNING PREFERENCES?NO LEARNING CAPABILITIES PRESENT?YES EMOTIONAL BARRIERS?YES 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 DIET: REGULAR, TRYING TO LOSE WEIGHT. EXERCISE: NONE. MARITAL STATUS: /08/2016. OTHERS AT HOME: OLDER DAUGHTER( BOGDAN ANAYA).. TODAY'S VISIT 02/29/2020, PATIENT DESCRIBES PAIN : BURNING, IT COMES AND GOES, SHOOTING, FROM 0-10, WHAT LEVEL IS YOUR PAIN TODAY? 5, PRECIPITATING FACTORS STANDING, ALLEVIATING FACTORS ELEVATE FEET, IMPACT ON FUNCTION YES. - PFS REFERRAL NEEDED?NO CLERGY REFERRAL NEEDED?NO PUBLIC HEALTH REFERRAL NEEDED?NO WAS THE PROVIDER NOTIFIED OF ANY PERTINENT INFO?YES HAS THE PATIENT BEEN EDUCATED REGARDING HIS/HER PLAN OF CARE?YES HAS THE PATIENT BEEN EDUCATED REGARDING PAIN, THE RISK FOR PAIN, THE IMPORTANCE OF EFFECTIVE PAIN MANAGEMENT, AND THE PAIN ASSESSMENT PROCESS?YES ADVANCE DIRECTIVE ADVANCE DIRECTIVE DISCUSSED WITH PATIENT:YES HCP: DAUGHTER - MALA - [phone] REVIEWED WITH PATIENT 08/31/19 1134 JSREVIEWED WITH PATIENT 12/01/2019 1017 JS. REVIEW OF SYSTEMS CONSTITUTIONAL: ANY RECENT FEVER NO . CHILLS NO . WEIGHT CHANGE OF UNKNOWN REASONS NO . GASTROENTEROLOGY: NEW UNEXPLAINABLE CHANGES IN BOWEL CONTROL NO . CONSTIPATION NO . GENITOURINARY: ANY NEW CHANGE IN BLADDER CONTROL? NO . NEUROLOGY: NEW ONSET DIZZINESS OR NEUROLOGICAL CHANGES NOT MENTIONED NO . NEW NUMBNESS OR PAIN PATTERNS NOT MENTIONED AND PERTINENT TO TODAY'S VISIT NO . CARDIOLOGY: NEW CHEST PRESSURE NO . NEW CHEST PAIN NO . RESPIRATORY: UNEXPLAINABLE COUGH NO . NEW SHORTNESS OF BREATH NO . VITAL SIGNS WT 294.6 LBS, HT 62 IN, BMI 53.88 INDEX, BP 167/88 MM HG, HR 111 /MIN, RR 18 /MIN, TEMP 97.9 F, OXYGEN SAT % 94%, SAFE IN ENV? (Y/N) YES, NA INITIALS AW 1002T.BRYANNA FRANCO. EXAMINATION GENERAL EXAMINATION: GENERAL AWAKE,ALERT ,PLEASANT . PSYCH AFFECT NORMAL . LUNGS: LUNG ASHLEY ARE CLEAR TO AUSCULTATION BILATERALLY. GOOD MOVEMENT OF AIR . HEART: S1, S2 IN A SLIGHTLY IRREGULAR.HX OF ATRIAL FIBRILLATION ON XARELTO. ASSESSMENTS PAIN IN RIGHT KNEE - M25.561 (PRIMARY) PAIN IN LEFT KNEE - M25.562 CHRONIC PRESCRIPTION OPIATE USE - Z79.891 TREATMENT PAIN IN RIGHT KNEE REFILL METHADONE HCL TABLET, 10 MG, 1 TABLET, ORALLY, Q 12 HOURS MDD=2 CHRONIC PAIN, 30 DAYS, 60, REFILLS 0 CONTINUE CYCLOBENZAPRINE HCL TABLET, 10 MG, 1 TABLET NEEDED, ORALLY, BID REFILL HYDROCODONE-ACETAMINOPHEN TABLET, 10-325 MG, 1 TABLET NEEDED, ORALLY, TWICE A DAY MDD 2, 30 DAYS, 60, REFILLS 0 NOTES: ISTOP REGISTRY REVIEWED AND DEMONSTRATES COMPLLIANCE. BRINGS IN MEDICATIONS WHICH IS APPROPRIATE FOR WHAT WAS DISPENSED. RECENT URINE TOXICOLOGY REVIEWED. NO UNAUTHORIZED MEDICATIONS. NO ILLICIT SUBSTANCES AND PRESCRIBED MEDICATIONS WERE PRESENT. URINE TOX TODAY , RISKS OF NARCOTIC/OPIOD MEDICATIONS INCLUDES BUT IS NOT LIMITED TO RISK OF DEPENDANCE/DEVELOPMENT OF ADDICTION, MOOD DISTURBANCE AND DEPRESSION, OSTEOPOROSIS, HORMONAL AND LABIDAL CHANGES, RESPIRATORY DEPRESSION AND . PATIENT IS ADVISED NOT TO DRIVE OR DRINK ALCOHOL WHILE ON THESE MEDICATIONS. PROCEDURE CODES FA211 ESTABILISHED PATIENT [facility] FACILITY CHARGE DISPOSITION & COMMUNICATION FOLLOW UP 3 MONTHS (REASON: MED MGMNT/REVIEW UTOX) ELECTRONICALLY SIGNED BY BEVERLEY RICO ON 12/13/2020 AT 10:10 AM EST DISCLAIMER : THIS IS A VISIT SUMMARY EXTRACTED FROM THE [employer] CHART. IT IS NOT A COPY OF THE [employer] PROGRESS NOTE. MTDD
== END ==
LOC: M PAIN 10:00
PROVIDERS: ATTEND Nurse Practitioner Family
DX: M25.561 Pain in right knee (principal); M25.562 Pain in left knee; K21.9 Gastro-esophageal reflux disease without esophagitis; I10 Essential (primary) hypertension; I48.91 Unspecified atrial fibrillation; I83.90 Asymptomatic varicose veins of unspecified lower extremity; R26.89 Other abnormalities of gait and mobility; F41.0 Panic disorder [episodic paroxysmal anxiety]; Z79.891 Long term (current) use of opiate analgesic; Z79.01 Long term (current) use of anticoagulants; Z79.899 Other long term (current) drug therapy

== ENCOUNTER → 2020-12-19 | Outpatient (REF) | payer MEDICARE, MEDICAID ==
[2020-12-19 18:28] LABS: HEMATOCRIT 37.3 % (36.0-47.0); HEMOGLOBIN 10.5 g/dl (12.0-15.5); MEAN CORPUSCULAR HEMOGLOBIN 20.8 pg (27.0-33.0); MEAN CORPUSCULAR HGB CONC 28.2 g/dl (32.0-36.5); MEAN CORPUSCULAR VOLUME 73.7 fl (80.0-96.0); PLATELET COUNT, AUTOMATED 321 10^3/uL (150-450); RED BLOOD COUNT 5.06 10^6/uL (4.00-5.40); WHITE BLOOD COUNT 4.6 10^3/uL (4.0-10.0)
[2020-12-19 18:59] LABS: ALBUMIN 3.5 GM/DL (3.2-5.2); ALT/SGPT 13 U/L (12-78); BILIRUBIN,TOTAL 0.4 MG/DL (0.2-1.0); BLOOD UREA NITROGEN 14 MG/DL (7-18); CALCIUM LEVEL 9.5 MG/DL (8.8-10.2); CARBON DIOXIDE LEVEL 34 MEQ/L (21-32); CHLORIDE LEVEL 102 MEQ/L (98-107); CREATININE FOR GFR 0.88 MG/DL (0.55-1.30); GLOMERULAR FILTRATION RATE > 60.0 (>45); GLUCOSE, FASTING 96 MG/DL (70-100); POTASSIUM SERUM 3.8 MEQ/L (3.5-5.1); SODIUM LEVEL 141 MEQ/L (136-145); TOTAL PROTEIN 7.2 GM/DL (6.4-8.2)
== END ==
LOC: M SFHCPLAZ 14:46
PROVIDERS: ATTEND Nurse Practitioner Adult Health
DX: I48.91 Unspecified atrial fibrillation (principal); I10 Essential (primary) hypertension
CPT/HCPCS: 36415; 80053; 84443; 85027; G0463

== ENCOUNTER → 2021-03-13 | Outpatient (CLI) | payer MEDICARE, MEDICAID ==
--- NOTE | 2021-03-14 05:54 | ECWPNPC ---
PATIENT NAME: LUTHER ANAYA : 1955 GENDER: FEMALE VISIT DATE: 03/13/2021 DISCHARGE DATE: 03/13/21 1158 VISIT LOCKED DATE TIME: PHYSICIAN: JONATHAN HORN PHYSICIAN PAGER NO: ACTIVE RESOURCE: JONATHAN HORN REASON FOR APPOINTMENT 1. MED MGMNT/REVIEW UTOX HISTORY OF PRESENT ILLNESS DEPRESSION SCREENING: PHQ-2 (2015 EDITION) LITTLE INTEREST OR PLEASURE IN DOING THINGS?SEVERAL DAYS FEELING DOWN, DEPRESSED, OR HOPELESS?NOT AT ALL TOTAL SCORE1 GENERAL: HERE FOR FOLLOW-UP AND MEDICINE MANAGEMENT FOR CHRONIC BILATERAL KNEE PAIN, RIGHT GREATER THAN LEFT. FINDS CURRENT CHRONIC PAIN MEDICATION EFFECTIVE AT REDUCING PAIN AND KEEPING HER FUNCTIONAL. DENIES ADVERSE SIDE EFFECTS. - - - -. FALL RISK SCREENING: SCREENING : NO FALLS REPORTED IN THE LAST YEAR. PAIN SCREENING: PATIENT HAS A COMPLAINT OF ACUTE OR CHRONIC PAIN :YES LOCATION OF PAIN:KNEES INTENSITY OF PAIN (SCALE OF 1 TO 10):6 WHAT DOES YOUR PAIN FEEL LIKE:ACHING, BURNING, STABBING, THROBBING, SHOOTING DURATION:CONTINOUS, CONSTANT, ALL DAY PAIN IS INCREASED BY:ACTIVITIES, PROLONGED STANDING PAIN IS DECREASED BY:USE OF PAIN MEDICATIONS NURSING NOTE: -. PAIN CENTER INTAKE QUESTIONS: DO YOU HAVE A HISTORY OF MRSA? :NO DO YOU TAKE A BLOOD THINNERS? :YES XARELTO 20 MG DO YOU HAVE ANY BLEEDING DISORDERS? :NO ANY NEW NUMBNESS OR WEAKNESS IN YOUR LEGS OR ARMS? :NO ANY PACEMAKER,DEFIBRILLATOR, OR DORSAL COLUMN STIMULATOR? :NO DO YOU HAVE ANY RASHES OR OPEN SORES? :NO ARE YOU ALLERGIC TO IV DYE? :NO ARE YOU DIABETIC? :NO ANY NEW PROBLEMS WITH YOUR MEDICATIONS? :NO HAVE YOU RECEIVED A VACCINE IN THE PAST 30 DAYS? :YES FLU VAC OVER A MONTH AGO DO YOU PLAN TO RECEIVE A VACCINE IN THE NEXT 21 DAYS? :NO DO YOU NEED ANY PRESCRIPTION? :NO HYDROCODONE-ACETAMINOPHEN 10-325 MG ,METHADONE HCL 10 MG , CYCLOBENZAPRINE HCL 10 MG DO YOU TAKE ANY IMMUNOSUPPRESSIVE MEDICATIONS? :NO IS THERE A CHANCE YOU COULD BE ? :NO ARE YOU BREAST FEEDING? :NO CURRENT MEDICATIONS TAKING PROZAC 20 MG CAPSULE 1 CAPSULE ORALLY ONCE A DAY TAKING ZOFRAN 8 MG TABLET 1 TABLET ORALLY THREE TIMES DAILY PRN NAUSEA TAKING FLUOXETINE HCL 20 MG CAPSULE 1 CAPSULE ORALLY ONCE A DAY TAKING CYCLOBENZAPRINE HCL 10 MG TABLET 1 TABLET NEEDED ORALLY BID TAKING FLUOXETINE HCL 10 MG CAPSULE 1 CAPSULE ORALLY ONCE A DAY TAKING LISINOPRIL-HYDROCHLOROTHIAZIDE 20-25 MG TABLET 1 TABLET ORALLY ONCE A DAY TAKING METOPROLOL TARTRATE 50 MG TABLET 1 TABLET WITH FOOD ORALLY DAILY TAKING OMEPRAZOLE 40 MG CAPSULE DELAYED RELEASE 1 CAPSULE ORALLY ONCE A DAY TAKING METHADONE HCL 10 MG TABLET 1 TABLET ORALLY Q 12 HOURS MDD=2 CHRONIC PAIN TAKING HYDROCODONE-ACETAMINOPHEN 10-325 MG TABLET 1 TABLET NEEDED ORALLY TWICE A DAY MDD 2 TAKING XARELTO 20 MG TABLET TAKE 1 TABLET BY MOUTH ONCE DAILY WITH FOOD TAKING PROZAC 10 MG CAPSULE 1 CAPSULE ORALLY ONCE A DAY NOT-TAKING NORCO 10-325 MG TABLET 1 TABLET NEEDED ORALLY Q12H PRN MDD2 MEDICATION LIST REVIEWED AND RECONCILED WITH THE PATIENT PAST MEDICAL HISTORY GERD HTN ATRIAL FIB ON XARELTO STRESS TEST -DR. TARANGO VARICOSE VEINS CHRONIC TODD KNEE PAIN CHRONIC PRESCRIPTION OPOID USEAGE GAIT DISTURBANCE 02/25/18-03/08/2019- REFUSES COLONOSCOPY PANIC ATTACKS STARTED 2018 ALLERGIES N.K.D.A. SOCIAL HISTORY GENERAL: TOBACCO USE ARE YOU A:NONSMOKER NEVER SMOKER LATEX QUESTIONNAIRE LATEX ALLERGY : HAVE YOU EVER DEVELOPED ANY TYPE OF REACTION AFTER HANDLING LATEX PRODUCTS SUCH RUBBER GLOVES, CONDOMS, DIAPHRAGMS, BALLOONS, SOCKS, OR UNDERWEAR?NO LATEX ALLERGY : HAVE YOU EVER DEVELOPED ANY TYPE OF REACTION DURING OR AFTER DENTAL APPOINTMENT, VAGINAL/RECTAL EXAMINATION, SURGICAL PROCEDURE, OR ANY OTHER EXPOSURE?NO LATEX RISK : HAVE YOU EVER HAD ANY DIFFICULTY BREATHING OR HIVES AFTER EATING OR HANDLING ANY FRUITS, OR VEGETABLES; SUCH KIWI, BANANAS, STONE FRUITS, OR CHESTNUTSNO LATEX RISK : DO YOU HAVE A PREVIOUS PERSONAL HISTORY OF MORE THAN NINE SURGERIES, SPINA BIFIDA, OR REPEATED CATHERIZATIONS? NO LATEX RISK : ARE YOU FREQUENTLY EXPOSED TO LATEX PRODUCTS IN YOUR OCCUPATION?NO DATE ASKED : 03/13/2021 ALCOHOL USE: NO. BMI CARE GOAL FOLLOW-UP ABOVE NORMAL BMI FOLLOW-UPDIETARY MANAGEMENT EDUCATION, GUIDANCE, AND COUNSELING ALCOHOL SCREENING DID YOU HAVE A DRINK CONTAINING ALCOHOL IN THE PAST YEAR?NO POINTS0 INTERPRETATIONNEGATIVE RECREATIONAL DRUG USE DRUG USE?NO CAFFEINE CAFFEINE USE?YES 1-2 A DAY SODA SEXUAL HX HAD SEX IN THE LAST 12 MONTHS (VAGINAL, ORAL, OR ANAL)?NO LMP:HYSTERECTOMY HAVE YOU EVER HAD AN STD?NO HIV / HEP-C SCREENING HIV TEST OFFERED TO PATIENT:YES DATE OFFERED:02/25/2018 TEST ACCEPTED:NO HEP-C TEST OFFERED TO PATIENT:YES DATE OFFERED:02/25/2018 REASON:PATIENT DECLINED TEST ACCEPTED:NO REASON:PATIENT DECLINED BROCHURE PROVIDED TO PATIENTNO DECLINED PAMPLET JEWISH [id number] [employer] LANGUAGES SPOKEN:MALAY EDUCATION LEVEL OF EDUCATION:FINISHED HIGH SCHOOL LEARNING BARRIERS / SPECIAL NEEDS BARRIERS TO LEARNING?NO HEARING IMPAIRED?YES VISION IMPAIRED?NO COGNITIVELY IMPAIRED?NO READINESS TO LEARN?YES LEARNING PREFERENCES?NO LEARNING CAPABILITIES PRESENT?YES EMOTIONAL BARRIERS?YES 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 DIET: REGULAR, TRYING TO LOSE WEIGHT. EXERCISE: NONE. MARITAL STATUS: /08/2016. OTHERS AT HOME: OLDER DAUGHTER( BOGDAN ANAYA).. TODAY'S VISIT 02/29/2020, PATIENT DESCRIBES PAIN : BURNING, IT COMES AND GOES, SHOOTING, FROM 0-10, WHAT LEVEL IS YOUR PAIN TODAY? 5, PRECIPITATING FACTORS STANDING, ALLEVIATING FACTORS ELEVATE FEET, IMPACT ON FUNCTION YES. - PFS REFERRAL NEEDED?NO CLERGY REFERRAL NEEDED?NO PUBLIC HEALTH REFERRAL NEEDED?NO WAS THE PROVIDER NOTIFIED OF ANY PERTINENT INFO?YES HAS THE PATIENT BEEN EDUCATED REGARDING HIS/HER PLAN OF CARE?YES HAS THE PATIENT BEEN EDUCATED REGARDING PAIN, THE RISK FOR PAIN, THE IMPORTANCE OF EFFECTIVE PAIN MANAGEMENT, AND THE PAIN ASSESSMENT PROCESS?YES ADVANCE DIRECTIVE ADVANCE DIRECTIVE DISCUSSED WITH PATIENT:YES HCP: GELACIO MEDEIROS - [phone] REVIEWED WITH PATIENT 08/31/19 1134 JSREVIEWED WITH PATIENT 12/01/2019 1017 JS. REVIEW OF SYSTEMS CONSTITUTIONAL: ANY RECENT FEVER NO . CHILLS NO . WEIGHT CHANGE OF UNKNOWN REASONS NO . GASTROENTEROLOGY: NEW UNEXPLAINABLE CHANGES IN BOWEL CONTROL NO . CONSTIPATION NO . GENITOURINARY: ANY NEW CHANGE IN BLADDER CONTROL? NO . NEUROLOGY: NEW ONSET DIZZINESS OR NEUROLOGICAL CHANGES NOT MENTIONED NO . NEW NUMBNESS OR PAIN PATTERNS NOT MENTIONED AND PERTINENT TO TODAY'S VISIT NO . CARDIOLOGY: NEW CHEST PRESSURE NO . PATIENT DENIES NO . RESPIRATORY: UNEXPLAINABLE COUGH NO . NEW SHORTNESS OF BREATH NO . VITAL SIGNS WT 300 LBS, HT 62 IN, BMI 54.86 INDEX, BP 160/110 MM HG, HR 126 /MIN, RR 18 /MIN, TEMP 97.2 F, OXYGEN SAT % 97T.THOMPSPN MA. EXAMINATION GENERAL EXAMINATION: GENERAL AWAKE,ALERT ,PLEASANT . PSYCH AFFECT NORMAL . LUNGS: LUNG ASHLEY ARE CLEAR TO AUSCULTATION BILATERALLY. GOOD MOVEMENT OF AIR . HEART: S1, S2 IN A SLIGHTLY IRREGULAR.HX OF ATRIAL FIBRILLATION ON XARELTO. ASSESSMENTS PAIN IN RIGHT KNEE - M25.561 (PRIMARY) PAIN IN LEFT KNEE - M25.562 CHRONIC PRESCRIPTION OPIATE USE - Z79.891 TREATMENT PAIN IN RIGHT KNEE CONTINUE CYCLOBENZAPRINE HCL TABLET, 10 MG, 1 TABLET NEEDED, ORALLY, BID REFILL METHADONE HCL TABLET, 10 MG, 1 TABLET, ORALLY, Q 12 HOURS MDD=2 CHRONIC PAIN, 30 DAYS, 60, REFILLS 0 REFILL HYDROCODONE-ACETAMINOPHEN TABLET, 10-325 MG, 1 TABLET NEEDED, ORALLY, TWICE A DAY MDD 2, 30 DAYS, 60, REFILLS 0 PROCEDURE CODES FA211 ESTABILISHED PATIENT [facility] FACILITY CHARGE DISPOSITION & COMMUNICATION FOLLOW UP 3 MONTHS (REASON: MED MGMNT/UTOX) ELECTRONICALLY SIGNED BY BEVERLEY RICO ON 03/13/2021 AT 09:22 PM EDT DISCLAIMER : THIS IS A VISIT SUMMARY EXTRACTED FROM THE [employer] CHART. IT IS NOT A COPY OF THE [employer] PROGRESS NOTE. ANA
== END ==
LOC: M PAIN 11:00
PROVIDERS: ATTEND Nurse Practitioner Family
DX: M25.561 Pain in right knee (principal); M25.562 Pain in left knee; G89.29 Other chronic pain; K21.9 Gastro-esophageal reflux disease without esophagitis; Z86.59 Personal history of other mental and behavioral disorders; E66.01 Morbid (severe) obesity due to excess calories; Z68.43 Body mass index [BMI] 50.0-59.9, adult; Z79.01 Long term (current) use of anticoagulants; Z79.891 Long term (current) use of opiate analgesic; Z79.899 Other long term (current) drug therapy

== ENCOUNTER → 2021-07-31 | Outpatient (CLI) | payer MEDICARE, MEDICAID | LOC: M PAIN 13:45 | PROVIDERS: ATTEND Anesthesiology | DX: M25.561 Pain in right knee (principal); M79.2 Neuralgia and neuritis, unspecified; Z98.890 Other specified postprocedural states; M79.606 Pain in leg, unspecified; R25.2 Cramp and spasm; K21.9 Gastro-esophageal reflux disease without esophagitis; Z86.59 Personal history of other mental and behavioral disorders; E66.01 Morbid (severe) obesity due to excess calories; Z68.43 Body mass index [BMI] 50.0-59.9, adult; Z79.01 Long term (current) use of anticoagulants; Z79.891 Long term (current) use of opiate analgesic; Z79.899 Other long term (current) drug therapy ==

== ENCOUNTER → 2022-02-19 | Outpatient (CLI) | payer MEDICARE, MEDICAID | LOC: M PAIN 10:30 | PROVIDERS: ATTEND Anesthesiology | DX: M25.561 Pain in right knee (principal); M25.562 Pain in left knee; M54.16 Radiculopathy, lumbar region; K21.9 Gastro-esophageal reflux disease without esophagitis; I10 Essential (primary) hypertension; I48.91 Unspecified atrial fibrillation; F41.0 Panic disorder [episodic paroxysmal anxiety]; I83.90 Asymptomatic varicose veins of unspecified lower extremity; R26.89 Other abnormalities of gait and mobility; Z79.891 Long term (current) use of opiate analgesic; Z79.01 Long term (current) use of anticoagulants; Z79.899 Other long term (current) drug therapy ==

== ENCOUNTER → 2022-04-29 | Outpatient (CLI) | payer MEDICARE, MEDICAID ==
[2022-04-29 11:03] LABS: HEMATOCRIT 31.7 % (36.0-47.0); MEAN CORPUSCULAR HEMOGLOBIN 19.7 pg (27.0-33.0); MEAN CORPUSCULAR HGB CONC 28.4 g/dl (32.0-36.5); MEAN CORPUSCULAR VOLUME 69.2 fl (80.0-96.0); PLATELET COUNT, AUTOMATED 295 10^3/uL (150-450); RED BLOOD COUNT 4.58 10^6/uL (4.00-5.40); WHITE BLOOD COUNT 3.9 10^3/uL (4.0-10.0)
[2022-04-29 11:43] LABS: ALBUMIN 3.4 GM/DL (3.2-5.2); CHOLESTEROL RISK RATIO 2.461 (<5); CREATININE FOR GFR 1.03 MG/DL (0.55-1.30); GLOMERULAR FILTRATION RATE 56.7 (>45); PERCENT SATURATION 4.1 % (13.2-45.0); POTASSIUM SERUM 3.3 MEQ/L (3.5-5.1); THYROID STIMULATING HORMONE 6.2 uIU/ML (0.358-3.740); TOTAL PROTEIN 6.8 GM/DL (6.4-8.2)
[2022-04-29 12:04] LABS: HEMOGLOBIN A1c 6.1 %
== END ==
LOC: M PLALAB 08:29
PROVIDERS: ATTEND Nurse Practitioner Adult Health
DX: I48.91 Unspecified atrial fibrillation (principal); E66.01 Morbid (severe) obesity due to excess calories; Z13.220 Encounter for screening for lipoid disorders; Z79.899 Other long term (current) drug therapy

== ENCOUNTER 2022-05-05 10:31 | Outpatient (CLI) | payer MEDICARE ==
[~2022-05-05] VITALS: Ht 157.5 cm; Wt 121.0 kg
[~2022-05-05 10:31] MED LIST: IRON SUCROSE 25 MG in NS 25 ML IV ONE; IRON SUCROSE 475 MG in NS 250 ML IV ONE
[2022-05-05 10:51] VITALS: BP_SYST 156; BP_SYST 189; BP_DIAS 90
[2022-05-05 12:00] VITALS: BP 157/85
[2022-05-05 13:00] VITALS: BP 119/84
[2022-05-05 14:00] VITALS: BP 160/99
[2022-05-05 15:00] VITALS: BP 130/95
[2022-05-05 15:50] VITALS: BP 168/90
== END 2022-05-05 16:05 | disposition home or self-care (01) ==
LOC: M INFU 10:31
PROVIDERS: ATTEND Nurse Practitioner Adult Health
DX: D50.9 Iron deficiency anemia, unspecified (principal)
CPT/HCPCS: 96365; 96366; J1756

== ENCOUNTER → 2022-05-28 | Outpatient (CLI) | payer MEDICARE, MEDICAID | LOC: M PAIN 10:15 | PROVIDERS: ATTEND Anesthesiology | DX: M51.16 Intervertebral disc disorders with radiculopathy, lumbar region (principal); M54.50 Low back pain, unspecified; G89.29 Other chronic pain; K21.9 Gastro-esophageal reflux disease without esophagitis; Z86.59 Personal history of other mental and behavioral disorders; Z96.653 Presence of artificial knee joint, bilateral; E66.01 Morbid (severe) obesity due to excess calories; Z68.42 Body mass index [BMI] 45.0-49.9, adult; Z79.01 Long term (current) use of anticoagulants; Z79.891 Long term (current) use of opiate analgesic; Z79.899 Other long term (current) drug therapy ==

== ENCOUNTER 2022-06-22 17:05 | Emergency (ER) | payer MEDICAID, MEDICARE ==
[~2022-06-22] VITALS: Ht 157.5 cm; Wt 102.0 kg
[2022-06-22] MEDS ORDERED: NS 1,000 ML IV SCH (17:50)
[2022-06-22 18:22] LABS: VENOUS BASE EXCESS 10.3 (-2.0-2.0); VENOUS HCO3 35.9 MEQ/L (23.0-27.0); VENOUS O2 SATURATION 65.5 % (60.0-80.0); VENOUS PARTIAL PRESSURE CO2 51.3 mmHg (38.0-50.0); VENOUS PARTIAL PRESSURE O2 33.8 mmHg (30.0-50.0); VENOUS PH 7.463 UNITS (7.330-7.430); VENOUS STANDARD HCO3 33.2 MEQ/L; VENOUS TOTAL CO2 37.5 MEQ/L (24.0-28.0)
[2022-06-22 18:48] LABS: BASO % 0.2 % (0.0-1.0); EOS % 0.2 % (0.0-3.0); HEMATOCRIT 43.3 % (36.0-47.0); LYMPH # 0.9 10^3/uL (1.5-5.0); LYMPH % 22.4 % (24.0-44.0); MEAN CORPUSCULAR HEMOGLOBIN 21.2 pg (27.0-33.0); MEAN CORPUSCULAR VOLUME 70.5 fl (80.0-96.0); MONO # 0.7 10^3/uL (0.0-0.8); MONO % 17.2 % (2.0-8.0); NEUTROPHILS # 2.4 10^3/uL (1.5-8.5); NEUTROPHILS % 59.8 % (36.0-66.0); PLATELET COUNT, AUTOMATED 350 10^3/uL (150-450); RED BLOOD COUNT 6.14 10^6/uL (4.00-5.40)
[2022-06-22 19:13] LABS: RSV AMPLIFICATION NEGATIVE (NEGATIVE)
[2022-06-22 19:15] LABS: ALBUMIN 3.8 GM/DL (3.2-5.2); ALT/SGPT 18 U/L (12-78); BILIRUBIN,DIRECT 0.2 MG/DL (0.0-0.2); BILIRUBIN,TOTAL 1.1 MG/DL (0.2-1.0); BLOOD UREA NITROGEN 10 MG/DL (7-18); CALCIUM LEVEL 8.1 MG/DL (8.8-10.2); CARBON DIOXIDE LEVEL 32 MEQ/L (21-32); CHLORIDE LEVEL 97 MEQ/L (98-107); CREATININE FOR GFR 0.97 MG/DL (0.55-1.30); GLOMERULAR FILTRATION RATE > 60.0 (>45); GLUCOSE, FASTING 111 MG/DL (70-100); POTASSIUM SERUM 3.3 MEQ/L (3.5-5.1); SODIUM LEVEL 139 MEQ/L (136-145); TOTAL PROTEIN 7.6 GM/DL (6.4-8.2)
[2022-06-22] MEDS ORDERED: NEOSPORIN OINT 0.9 GM PKT TOP ONE (20:20)
[2022-06-22] MEDS ORDERED: CALCIUM GLUCONATE 1,000 MG in D5W MINI-BAG PLUS 100 ML IV ONE (20:25)
[2022-06-22] MEDS ORDERED: POTASSIUM CHLORIDE 10MEQ SR TABLET PO ONE ×2 (20:25→22:20)
[2022-06-22 21:14] LABS: MAGNESIUM LEVEL 1.5 MG/DL (1.8-2.4); NT-PRO BNP 2510 PG/ML (<125)
[2022-06-22] MEDS ORDERED: MAG SULF 1GM/100ML (MAG RUN) 1 GM in IV 1 EA IV ONE ×2 (21:30→22:00)
[2022-06-22 23:50] VITALS: BP 162/82
== END 2022-06-22 23:53 | disposition home or self-care (01) ==
LOC: M ED 17:05
DX: E86.0 Dehydration (principal); E87.6 Hypokalemia; E83.51 Hypocalcemia; E83.42 Hypomagnesemia; R53.1 Weakness; I10 Essential (primary) hypertension; K21.9 Gastro-esophageal reflux disease without esophagitis; Z86.16 Personal history of COVID-19; Z79.01 Long term (current) use of anticoagulants
CPT/HCPCS: 71045; 80048; 80076; 82803; 83605; 83735; 83880; 84443; 84484; 85025; 87040; 87077; 87186; 87631; 93005; 93041; 94760; 96361; 96365; 96366; 96368; 99285; J0610; J3475

== ENCOUNTER → 2022-08-12 | Outpatient (CLI) | payer MEDICAID, MEDICARE ==
[2022-08-12 11:22] LABS: HEMATOCRIT 34.2 % (36.0-47.0); HEMOGLOBIN 10.3 g/dl (12.0-15.5); MEAN CORPUSCULAR HEMOGLOBIN 23.7 pg (27.0-33.0); MEAN CORPUSCULAR HGB CONC 30.1 g/dl (32.0-36.5); MEAN CORPUSCULAR VOLUME 78.6 fl (80.0-96.0); PLATELET COUNT, AUTOMATED 278 10^3/uL (150-450); RED BLOOD COUNT 4.35 10^6/uL (4.00-5.40); WHITE BLOOD COUNT 3.9 10^3/uL (4.0-10.0)
[2022-08-12 11:41] LABS: HEMOGLOBIN A1c 5.9 %
[2022-08-12 12:24] LABS: ALBUMIN 3.5 GM/DL (3.2-5.2); ALT/SGPT 19 U/L (12-78); BILIRUBIN,TOTAL 0.6 MG/DL (0.2-1.0); BLOOD UREA NITROGEN 16 MG/DL (7-18); CALCIUM LEVEL 9.4 MG/DL (8.8-10.2); CARBON DIOXIDE LEVEL 32 MEQ/L (21-32); CHLORIDE LEVEL 103 MEQ/L (98-107); CHOLESTEROL LEVEL 133 MG/DL (<200); CHOLESTEROL RISK RATIO 2.509 (<5); CREATININE FOR GFR 0.95 MG/DL (0.55-1.30); FERRITIN 26 NG/ML (8-252); GLOMERULAR FILTRATION RATE > 60.0 (>45); GLUCOSE, FASTING 108 MG/DL (70-100); HDL CHOLESTEROL 53 MG/DL (>40); IRON (FE) 24 UG/DL (50-170); LDL CHOLESTEROL 66 MG/DL (<100); NON-HDL-C 80 MG/DL; PERCENT SATURATION 5.3 % (13.2-45.0); POTASSIUM SERUM 3.9 MEQ/L (3.5-5.1); SODIUM LEVEL 141 MEQ/L (136-145); TOTAL IRON BINDING CAPACITY 457 UG/DL (250-450); TRIGLYCERIDES LEVEL 69 MG/DL (<150)
== END ==
LOC: M PLALAB 09:10
PROVIDERS: ATTEND Nurse Practitioner Adult Health
DX: E66.01 Morbid (severe) obesity due to excess calories (principal); I48.91 Unspecified atrial fibrillation; Z13.220 Encounter for screening for lipoid disorders

== ENCOUNTER → 2022-08-20 | Outpatient (CLI) | payer MEDICARE, MEDICAID ==
[~2022-08-20] MED LIST changes: +AMLO1TAB24 PO; +BUSP10TA PO; +CYCL-707 PO; +FLUO20CA22 PO; +FURO40TA2 PO; +HYDR-4517 PO; -IRON SUCROSE 25 MG in NS 25 ML IV ONE; -IRON SUCROSE 475 MG in NS 250 ML IV ONE; +LISI40TA4 PO; +METH-1177 PO; +METO1TAB7 PO; +XARE20TA PO
== END ==
LOC: M PAIN 11:30
PROVIDERS: ATTEND Anesthesiology
DX: M54.50 Low back pain, unspecified (principal); M25.561 Pain in right knee; M25.562 Pain in left knee; K21.9 Gastro-esophageal reflux disease without esophagitis; I10 Essential (primary) hypertension; Z86.59 Personal history of other mental and behavioral disorders; Z79.01 Long term (current) use of anticoagulants; Z79.891 Long term (current) use of opiate analgesic; Z79.899 Other long term (current) drug therapy

== ENCOUNTER 2022-08-26 15:42 | Emergency (ER) | payer MEDICAID, MEDICARE ==
[~2022-08-26] VITALS: Ht 157.5 cm; Wt 121.5 kg
[2022-08-26 15:42] VITALS: BP 169/97
[2022-08-26] MEDS ORDERED: CYCL-707 PO (15:55)
[2022-08-26] MEDS ORDERED: METH-1177 PO (15:55)
[2022-08-26] MEDS ORDERED: BUSP10TA PO (15:55)
[2022-08-26] MEDS ORDERED: METO1TAB7 PO (15:55)
[2022-08-26] MEDS ORDERED: FURO40TA2 PO (15:55)
[2022-08-26] MEDS ORDERED: XARE20TA PO (15:55)
[2022-08-26] MEDS ORDERED: FLUO20CA22 PO (15:55)
[2022-08-26] MEDS ORDERED: LISI40TA4 PO (15:55)
[2022-08-26] MEDS ORDERED: AMLO1TAB24 PO (15:55)
[2022-08-26] MEDS ORDERED: HYDR-4517 PO (15:55)
[2022-08-27] MEDS ORDERED: AMOX875T2 PO (10:38)
== END 2022-08-26 18:22 | disposition left against medical advice (07) ==
LOC: M ED 15:42
DX: Z53.21 Procedure and treatment not carried out due to patient leaving prior to being seen by health care provider (principal)

== ENCOUNTER 2022-08-27 05:36 | Emergency (ER) | payer MEDICARE ==
[~2022-08-27] VITALS: Ht 157.5 cm; Wt 113.6 kg
[2022-08-27 08:52] LABS: BASO % 0.4 % (0.0-1.0); EOS % 0.4 % (0.0-3.0); HEMATOCRIT 36.1 % (36.0-47.0); HEMOGLOBIN 10.7 g/dl (12.0-15.5); LYMPH # 0.7 10^3/uL (1.5-5.0); LYMPH % 14.3 % (24.0-44.0); MEAN CORPUSCULAR HEMOGLOBIN 23.9 pg (27.0-33.0); MEAN CORPUSCULAR HGB CONC 29.6 g/dl (32.0-36.5); MEAN CORPUSCULAR VOLUME 80.8 fl (80.0-96.0); MONO # 0.5 10^3/uL (0.0-0.8); NEUTROPHILS # 3.8 10^3/uL (1.5-8.5); NEUTROPHILS % 74.5 % (36.0-66.0); PLATELET COUNT, AUTOMATED 286 10^3/uL (150-450); RED BLOOD COUNT 4.47 10^6/uL (4.00-5.40); WHITE BLOOD COUNT 5.1 10^3/uL (4.0-10.0)
[2022-08-27 09:12] LABS: ERYTHROCYTE SEDIMENTATION RATE 21 mm/hr (0-30)
[2022-08-27 09:25] LABS: BLOOD UREA NITROGEN 16 MG/DL (7-18); C REACTIVE PROTEIN QUANTITATIV 1.12 MG/DL (0.00-0.30); CALCIUM LEVEL 9.7 MG/DL (8.8-10.2); CARBON DIOXIDE LEVEL 28 MEQ/L (21-32); CHLORIDE LEVEL 106 MEQ/L (98-107); CREATININE FOR GFR 0.93 MG/DL (0.55-1.30); GLOMERULAR FILTRATION RATE > 60.0 (>45); GLUCOSE, FASTING 131 MG/DL (70-100); POTASSIUM SERUM 3.9 MEQ/L (3.5-5.1); SODIUM LEVEL 140 MEQ/L (136-145)
[2022-08-27 09:30] LABS: RSV AMPLIFICATION NEGATIVE (NEGATIVE)
[2022-08-27] MEDS ORDERED: LIDOCAINE W/EPINEPHRINE 1% 20ML VIAL SC ONE (09:45)
[2022-08-27 10:29] LABS: URIC ACID 6.6 MG/DL (2.6-6.0)
[2022-08-27] MEDS ORDERED: AMOX875T2 PO (10:38)
[2022-08-27 11:02] VITALS: BP 173/95
== END 2022-08-27 11:05 | disposition home or self-care (01) ==
LOC: M ED 05:36
DX: M1A.9XX0 Chronic gout, unspecified, without tophus (tophi) (principal); M86.9 Osteomyelitis, unspecified; M89.9 Disorder of bone, unspecified; L98.8 Other specified disorders of the skin and subcutaneous tissue; I48.91 Unspecified atrial fibrillation; I10 Essential (primary) hypertension; K21.9 Gastro-esophageal reflux disease without esophagitis; E66.9 Obesity, unspecified; D50.9 Iron deficiency anemia, unspecified; F19.10 Other psychoactive substance abuse, uncomplicated; Z79.899 Other long term (current) drug therapy; Z79.01 Long term (current) use of anticoagulants

== ENCOUNTER → 2022-10-22 | Outpatient (CLI) | payer MEDICARE, MEDICAID ==
[~2022-10-22] MED LIST changes: +AMOX875T2 PO
== END ==
LOC: M TMPAIN 11:30 → M PAIN 11:30
PROVIDERS: ATTEND Anesthesiology
DX: M54.50 Low back pain, unspecified (principal); M25.561 Pain in right knee; G89.29 Other chronic pain; K21.9 Gastro-esophageal reflux disease without esophagitis; I10 Essential (primary) hypertension; Z86.59 Personal history of other mental and behavioral disorders; Z96.653 Presence of artificial knee joint, bilateral; Z79.01 Long term (current) use of anticoagulants; Z79.891 Long term (current) use of opiate analgesic; Z79.899 Other long term (current) drug therapy

== ENCOUNTER → 2022-11-11 | Outpatient (CLI) | payer MEDICARE, MEDICAID | LOC: M PAIN 15:30 | PROVIDERS: ATTEND Anesthesiology | DX: M79.18 Myalgia, other site (principal); M25.561 Pain in right knee; M25.562 Pain in left knee; M54.50 Low back pain, unspecified; G89.29 Other chronic pain; K21.9 Gastro-esophageal reflux disease without esophagitis; I10 Essential (primary) hypertension; Z86.59 Personal history of other mental and behavioral disorders; E66.01 Morbid (severe) obesity due to excess calories; Z68.42 Body mass index [BMI] 45.0-49.9, adult; Z79.01 Long term (current) use of anticoagulants; Z79.891 Long term (current) use of opiate analgesic; Z79.899 Other long term (current) drug therapy ==

== ENCOUNTER → 2022-12-03 | Outpatient (CLI) | payer MEDICARE, MEDICAID ==
[2022-12-03 16:39] LABS: HEMATOCRIT 33.9 % (36.0-47.0); HEMOGLOBIN 9.9 g/dl (12.0-15.5); MEAN CORPUSCULAR HEMOGLOBIN 22.7 pg (27.0-33.0); MEAN CORPUSCULAR HGB CONC 29.2 g/dl (32.0-36.5); MEAN CORPUSCULAR VOLUME 77.8 fl (80.0-96.0); PLATELET COUNT, AUTOMATED 276 10^3/uL (150-450); RED BLOOD COUNT 4.36 10^6/uL (4.00-5.40); WHITE BLOOD COUNT 4.2 10^3/uL (4.0-10.0)
[2022-12-03 17:05] LABS: CALCIUM LEVEL 9.3 MG/DL (8.3-10.6); CREATININE FOR GFR 1.02 MG/DL (0.55-1.30); GLOMERULAR FILTRATION RATE 57.4 (>45); POTASSIUM SERUM 3.8 MMOL/L (3.5-5.1)
== END ==
LOC: M WUC 10:33
PROVIDERS: ATTEND Internal Medicine Cardiovascular Disease
DX: I10 Essential (primary) hypertension (principal); I48.91 Unspecified atrial fibrillation

== ENCOUNTER → 2022-12-03 | Outpatient (CLI) | payer MEDICARE, MEDICAID ==
[2022-12-03 16:56] LABS: HEMOGLOBIN A1c 6.1 % (4.0-6.0)
[2022-12-03 17:30] LABS: ALBUMIN 3.6 G/DL (3.2-5.2); CALCIUM LEVEL 9.4 MG/DL (8.3-10.6); CHOLESTEROL RISK RATIO 3.07 (<5); CREATININE FOR GFR 1.01 MG/DL (0.55-1.30); HDL CHOLESTEROL 41.9 MG/DL (>40); LDL CHOLESTEROL 70.5 MG/DL (<100); POTASSIUM SERUM 3.9 MMOL/L (3.5-5.1); THYROID STIMULATING HORMONE 7.979 uIU/ML (0.55-4.78); TOTAL PROTEIN 6.6 G/DL (5.7-8.2)
== END ==
LOC: M WUC 10:29
PROVIDERS: ATTEND Nurse Practitioner Adult Health
DX: I48.91 Unspecified atrial fibrillation (principal); E66.01 Morbid (severe) obesity due to excess calories; Z13.220 Encounter for screening for lipoid disorders; Z79.899 Other long term (current) drug therapy

== ENCOUNTER → 2023-03-03 | Outpatient (CLI) | payer MEDICARE, MEDICAID | LOC: M PAIN 09:30 | PROVIDERS: ATTEND Anesthesiology | DX: M25.561 Pain in right knee (principal); M25.562 Pain in left knee; M17.0 Bilateral primary osteoarthritis of knee; G89.29 Other chronic pain; K21.9 Gastro-esophageal reflux disease without esophagitis; I10 Essential (primary) hypertension; Z86.59 Personal history of other mental and behavioral disorders; E66.01 Morbid (severe) obesity due to excess calories; Z68.42 Body mass index [BMI] 45.0-49.9, adult; Z79.01 Long term (current) use of anticoagulants; Z79.891 Long term (current) use of opiate analgesic; Z79.899 Other long term (current) drug therapy ==

== ENCOUNTER → 2023-04-06 | Outpatient (CLI) | payer MEDICARE, MEDICAID | LOC: M PAIN 10:00 | PROVIDERS: ATTEND Anesthesiology | DX: M25.561 Pain in right knee (principal); M25.562 Pain in left knee; M17.9 Osteoarthritis of knee, unspecified; K21.9 Gastro-esophageal reflux disease without esophagitis; I10 Essential (primary) hypertension; Z86.59 Personal history of other mental and behavioral disorders; E66.01 Morbid (severe) obesity due to excess calories; Z68.42 Body mass index [BMI] 45.0-49.9, adult; Z79.01 Long term (current) use of anticoagulants; Z79.891 Long term (current) use of opiate analgesic; Z79.899 Other long term (current) drug therapy ==

== ENCOUNTER → 2023-04-22 | Outpatient (CLI) | payer MEDICAID, MEDICARE ==
[2023-04-22 14:59] LABS: HEMATOCRIT 34.7 % (36.0-47.0); HEMOGLOBIN 10.2 g/dl (12.0-15.5); MEAN CORPUSCULAR HEMOGLOBIN 23.7 pg (27.0-33.0); MEAN CORPUSCULAR HGB CONC 29.4 g/dl (32.0-36.5); MEAN CORPUSCULAR VOLUME 80.5 fl (80.0-96.0); PLATELET COUNT, AUTOMATED 264 10^3/uL (150-450); RED BLOOD COUNT 4.31 10^6/uL (4.00-5.40); WHITE BLOOD COUNT 4.2 10^3/uL (4.0-10.0)
[2023-04-22 15:03] LABS: BLOOD UREA NITROGEN 16 MG/DL (9-23); CALCIUM LEVEL 10.2 MG/DL (8.3-10.6); CARBON DIOXIDE LEVEL 30 MMOL/L (20-31); CHLORIDE LEVEL 103 MMOL/L (98-107); CREATININE FOR GFR 0.95 MG/DL (0.55-1.30); GLOMERULAR FILTRATION RATE > 60.0 (>45); GLUCOSE, FASTING 90 MG/DL (74-106); POTASSIUM SERUM 3.9 MMOL/L (3.5-5.1); SODIUM LEVEL 141 MMOL/L (136-145)
== END ==
LOC: M PLALAB 11:00
PROVIDERS: ATTEND Physician Assistant
DX: D64.89 Other specified anemias (principal); I50.20 Unspecified systolic (congestive) heart failure

== ENCOUNTER → 2023-04-22 | Outpatient (CLI) | payer MEDICAID, MEDICARE | LOC: M PLALAB 10:54 | PROVIDERS: ATTEND Nurse Practitioner Adult Health | DX: E74.39 Other disorders of intestinal carbohydrate absorption (principal); Z79.899 Other long term (current) drug therapy ==

== ENCOUNTER → 2023-04-22 | Outpatient (CLI) | payer MEDICARE, MEDICAID | LOC: M PAIN 13:00 | PROVIDERS: ATTEND Anesthesiology | DX: M25.561 Pain in right knee (principal); M25.562 Pain in left knee; M17.9 Osteoarthritis of knee, unspecified; K21.9 Gastro-esophageal reflux disease without esophagitis; I11.0 Hypertensive heart disease with heart failure; I50.20 Unspecified systolic (congestive) heart failure; D64.89 Other specified anemias; Z86.59 Personal history of other mental and behavioral disorders; E66.01 Morbid (severe) obesity due to excess calories; Z68.42 Body mass index [BMI] 45.0-49.9, adult; Z79.01 Long term (current) use of anticoagulants; Z79.84 Long term (current) use of oral hypoglycemic drugs; Z79.891 Long term (current) use of opiate analgesic; Z79.899 Other long term (current) drug therapy | CPT/HCPCS: 36415; 80048; 85027; G0463 ==

== ENCOUNTER → 2023-06-03 | Outpatient (CLI) | payer MEDICARE, MEDICAID | LOC: M RAD 10:15 | PROVIDERS: ATTEND Anesthesiology | DX: M25.562 Pain in left knee (principal); M25.561 Pain in right knee; M25.462 Effusion, left knee; Z96.653 Presence of artificial knee joint, bilateral; M25.461 Effusion, right knee ==

== ENCOUNTER → 2023-06-17 | Outpatient (CLI) | payer MEDICARE, MEDICAID | LOC: M PAIN 10:45 | PROVIDERS: ATTEND Anesthesiology | DX: M25.561 Pain in right knee (principal); M25.562 Pain in left knee; M17.0 Bilateral primary osteoarthritis of knee; K21.9 Gastro-esophageal reflux disease without esophagitis; I10 Essential (primary) hypertension; Z86.59 Personal history of other mental and behavioral disorders; Z96.653 Presence of artificial knee joint, bilateral; Z79.01 Long term (current) use of anticoagulants; Z79.84 Long term (current) use of oral hypoglycemic drugs; Z79.891 Long term (current) use of opiate analgesic; Z79.899 Other long term (current) drug therapy ==

== ENCOUNTER → 2023-07-16 | Outpatient (CLI) | payer MEDICARE, MEDICAID | LOC: M PAIN 10:15 | PROVIDERS: ATTEND Nurse Practitioner Family | DX: M25.561 Pain in right knee (principal); M25.562 Pain in left knee; M17.0 Bilateral primary osteoarthritis of knee; G89.29 Other chronic pain; Z86.59 Personal history of other mental and behavioral disorders; E66.01 Morbid (severe) obesity due to excess calories; Z68.43 Body mass index [BMI] 50.0-59.9, adult; Z79.01 Long term (current) use of anticoagulants; Z79.84 Long term (current) use of oral hypoglycemic drugs; Z79.899 Other long term (current) drug therapy ==

== ENCOUNTER → 2023-10-13 | Outpatient (CLI) | payer MEDICARE, MEDICAID | LOC: M PAIN 16:00 | PROVIDERS: ATTEND Nurse Practitioner Family | DX: M25.561 Pain in right knee (principal); M17.12 Unilateral primary osteoarthritis, left knee; G89.29 Other chronic pain; Z80.8 Family history of malignant neoplasm of other organs or systems; E66.01 Morbid (severe) obesity due to excess calories; Z68.42 Body mass index [BMI] 45.0-49.9, adult; Z79.01 Long term (current) use of anticoagulants; Z79.84 Long term (current) use of oral hypoglycemic drugs; Z79.899 Other long term (current) drug therapy ==

== ENCOUNTER → 2023-12-29 | Outpatient (CLI) | payer MEDICARE, MEDICAID | LOC: M PAIN 17:00 | PROVIDERS: ATTEND Nurse Practitioner Family | DX: M25.561 Pain in right knee (principal); Z79.891 Long term (current) use of opiate analgesic; I10 Essential (primary) hypertension; I48.91 Unspecified atrial fibrillation; F41.0 Panic disorder [episodic paroxysmal anxiety]; Z79.01 Long term (current) use of anticoagulants; Z79.51 Long term (current) use of inhaled steroids; Z79.620 Long term (current) use of immunosuppressive biologic; Z79.84 Long term (current) use of oral hypoglycemic drugs; Z79.899 Other long term (current) drug therapy ==

== ENCOUNTER → 2024-03-29 | Outpatient (CLI) | payer MEDICARE, MEDICAID ==
[~2024-03-29] MED LIST changes: +FLUO-365 PO; -FLUO20CA22 PO
== END ==
LOC: M PAIN 17:00
PROVIDERS: ATTEND Nurse Practitioner Family
DX: M25.561 Pain in right knee (principal); Z79.891 Long term (current) use of opiate analgesic; M17.12 Unilateral primary osteoarthritis, left knee; G89.29 Other chronic pain; F41.0 Panic disorder [episodic paroxysmal anxiety]; K21.9 Gastro-esophageal reflux disease without esophagitis; I10 Essential (primary) hypertension; I48.91 Unspecified atrial fibrillation; M10.9 Gout, unspecified; Z79.899 Other long term (current) drug therapy; Z79.01 Long term (current) use of anticoagulants

== ENCOUNTER → 2024-05-31 | Outpatient (CLI) | payer MEDICAID, MEDICARE | LOC: M PAIN 17:00 | PROVIDERS: ATTEND Nurse Practitioner Family | DX: M25.561 Pain in right knee (principal); Z79.891 Long term (current) use of opiate analgesic; M17.12 Unilateral primary osteoarthritis, left knee; G89.29 Other chronic pain; F41.0 Panic disorder [episodic paroxysmal anxiety]; K21.9 Gastro-esophageal reflux disease without esophagitis; I10 Essential (primary) hypertension; I48.91 Unspecified atrial fibrillation; I83.90 Asymptomatic varicose veins of unspecified lower extremity; R26.89 Other abnormalities of gait and mobility; D64.9 Anemia, unspecified; M10.9 Gout, unspecified; Z79.01 Long term (current) use of anticoagulants; Z79.899 Other long term (current) drug therapy ==

== ENCOUNTER → 2024-08-02 | Outpatient (CLI) | payer MEDICARE, MEDICAID | LOC: M PAIN 17:00 | PROVIDERS: ATTEND Nurse Practitioner Family | DX: M25.561 Pain in right knee (principal); Z79.891 Long term (current) use of opiate analgesic; M17.12 Unilateral primary osteoarthritis, left knee; G89.29 Other chronic pain; F41.0 Panic disorder [episodic paroxysmal anxiety]; K21.9 Gastro-esophageal reflux disease without esophagitis; I10 Essential (primary) hypertension; I48.91 Unspecified atrial fibrillation; R26.89 Other abnormalities of gait and mobility; M10.9 Gout, unspecified; Z79.01 Long term (current) use of anticoagulants; Z79.899 Other long term (current) drug therapy ==

== ENCOUNTER → 2024-10-04 | Outpatient (CLI) | payer MEDICARE, MEDICAID | LOC: M PAIN 17:00 | PROVIDERS: ATTEND Nurse Practitioner Family | DX: M25.561 Pain in right knee (principal); Z79.891 Long term (current) use of opiate analgesic; M17.12 Unilateral primary osteoarthritis, left knee; G89.29 Other chronic pain; F41.0 Panic disorder [episodic paroxysmal anxiety]; K21.9 Gastro-esophageal reflux disease without esophagitis; I10 Essential (primary) hypertension; I48.91 Unspecified atrial fibrillation; M10.9 Gout, unspecified; D64.9 Anemia, unspecified; Z79.01 Long term (current) use of anticoagulants; Z79.899 Other long term (current) drug therapy ==

== ENCOUNTER → 2024-12-13 | Outpatient (CLI) | payer MEDICARE, MEDICAID | LOC: M PAIN 17:00 | PROVIDERS: ATTEND Nurse Practitioner Family | DX: M25.561 Pain in right knee (principal); Z79.891 Long term (current) use of opiate analgesic; G89.29 Other chronic pain; K21.9 Gastro-esophageal reflux disease without esophagitis; I10 Essential (primary) hypertension; I48.91 Unspecified atrial fibrillation; Z96.653 Presence of artificial knee joint, bilateral; Z79.01 Long term (current) use of anticoagulants; Z79.899 Other long term (current) drug therapy ==

== ENCOUNTER → 2025-05-01 | Outpatient (CLI) | payer MEDICARE ==
[~2025-05-01] MED LIST changes: +ALBU8.5H; +ALLO300T2 PO; +JARD1TAB PO; +LISI40TA10 PO; -LISI40TA4 PO; +OMEP40CA5 PO; +ONDA-84 PO; +SPIR-10 PO
== END ==
LOC: M RAD 11:58
PROVIDERS: ATTEND Registered Nurse School
DX: I83.813 Varicose veins of bilateral lower extremities with pain (principal)

== ENCOUNTER → 2025-05-03 | Outpatient (POV) | payer MEDICARE ==
[~2025-05-03] VITALS: Ht 157.5 cm; Wt 117.9 kg
[2025-05-03 11:00] VITALS: BP 118/78; O2SAT 71
== END ==
LOC: M IRPOV 10:21
PROVIDERS: ATTEND Registered Nurse School
DX: I73.9 Peripheral vascular disease, unspecified (principal); I87.2 Venous insufficiency (chronic) (peripheral); Z79.899 Other long term (current) drug therapy

== ENCOUNTER → 2025-06-20 | Outpatient (CLI) | payer MEDICARE ==
[~2025-06-20] MED LIST changes: +NS (Normal Saline) 0.9% 1,000 ML IV SCH
[2025-06-20 08:58] VITALS: TEMP 97.8
[2025-06-20] MEDS: MIDAZOLAM INJ 2 MG/2 ML VIAL IV PRN (10:38)
[2025-06-20] MEDS: LIDOCAINE 1% MDV 20 ML VIAL SC SCH (11:45)
[2025-06-20] MEDS: SODIUM TETRADECYL SULFATE (1%) 20MG/2ML VIAL (SOTRADECOL) IV SCH (11:45)
[2025-06-20] MEDS: SODIUM CHLORIDE 0.9% 1000 ML XX SCH (11:46)
[2025-06-20 13:00] VITALS: BP 113/66; O2SAT 94
== END ==
LOC: M IRPRO 08:36
PROVIDERS: ATTEND Registered Nurse School
DX: I83.813 Varicose veins of bilateral lower extremities with pain (principal)
CPT/HCPCS: 36470; 76942; J2250; J3010

== ENCOUNTER → 2025-06-28 | Outpatient (CLI) | payer MEDICARE ==
[~2025-06-28] MED LIST changes: -NS (Normal Saline) 0.9% 1,000 ML IV SCH
== END ==
LOC: M RAD 08:13
PROVIDERS: ATTEND Radiology Diagnostic Radiology
DX: I87.8 Other specified disorders of veins (principal); I83.892 Varicose veins of left lower extremity with other complications; I82.812 Embolism and thrombosis of superficial veins of left lower extremity

== ENCOUNTER → 2025-07-10 | Outpatient (POV) | payer MEDICARE ==
[~2025-07-10] VITALS: Ht 154.9 cm; Wt 117.9 kg
[2025-07-10 08:10] VITALS: BP 144/70; O2SAT 97
== END ==
LOC: M IRPOV 08:03
PROVIDERS: ATTEND Registered Nurse School
DX: Z48.812 Encounter for surgical aftercare following surgery on the circulatory system (principal); I87.2 Venous insufficiency (chronic) (peripheral)

== ENCOUNTER → 2025-07-26 | Outpatient (CLI) | payer MEDICARE | LOC: M RAD 10:31 | PROVIDERS: ATTEND Radiology Diagnostic Radiology | DX: I83.892 Varicose veins of left lower extremity with other complications (principal); I87.2 Venous insufficiency (chronic) (peripheral); I74.3 Embolism and thrombosis of arteries of the lower extremities ==

== ENCOUNTER → 2025-08-16 | Outpatient (CLI) | payer MEDICAID, MEDICARE ==
[2025-08-16 12:44] LABS: BASO # 0.0 10^3/uL (0.0-0.2); BASO % 0.6 % (0.0-1.0); EOS # 0.1 10^3/uL (0.0-0.5); EOS % 1.4 % (0.0-3.0); LYMPH # 1.1 10^3/uL (1.5-5.0); LYMPH % 22.0 % (24.0-44.0); MONO # 0.6 10^3/uL (0.0-0.8); MONO % 11.1 % (2.0-8.0); NEUTROPHILS # 3.3 10^3/uL (1.5-8.5); NEUTROPHILS % 64.7 % (36.0-66.0); PLATELET COUNT, AUTOMATED 338 10^3/uL (150-450)
[2025-08-16 12:47] LABS: ALT/SGPT < 9 U/L (7.0-40); AST/SGOT 11 U/L (<34); CALCIUM LEVEL 9.1 MG/DL (8.3-10.6); CARBON DIOXIDE LEVEL 32 MMOL/L (20-31); CHLORIDE LEVEL 100 MMOL/L (98-107); CHOLESTEROL LEVEL 94 MG/DL (<200); CHOLESTEROL RISK RATIO 2.94 (<5); CREATININE FOR GFR 1.24 MG/DL (0.55-1.30); GLOMERULAR FILTRATION RATE 46.5 (>39); IRON (FE) 17 UG/DL (50-170); LDL CHOLESTEROL 44.1 MG/DL (<100); NON-HDL-C 62.1 MG/DL; POTASSIUM SERUM 3.1 MMOL/L (3.5-5.1); SODIUM LEVEL 145 MMOL/L (136-145); TRIGLYCERIDES LEVEL 90 MG/DL (<150); VITAMIN B12 LEVEL 385 PG/ML (211-911)
[2025-08-16 12:54] LABS: INR 4.13
[2025-08-16 17:39] LABS: ESTIMATED AVERAGE GLUCOSE 134.0 MG/DL (60-110)
[2025-08-17 15:09] LABS: MAGNESIUM LEVEL 1.4 MG/DL (1.8-2.4)
== END ==
LOC: M PLALAB 09:34
PROVIDERS: ATTEND Student in an Organized Health Care Education/Training Program
DX: Z01.818 Encounter for other preprocedural examination (principal); Z79.899 Other long term (current) drug therapy; Z79.01 Long term (current) use of anticoagulants

== ENCOUNTER → 2025-09-07 | Outpatient (CLI) | payer MEDICAID, MEDICARE ==
[2025-09-07 10:08] LABS: BASO # 0.0 10^3/uL (0.0-0.2); BASO % 0.6 % (0.0-1.0); EOS # 0.1 10^3/uL (0.0-0.5); EOS % 1.2 % (0.0-3.0); LYMPH # 2.1 10^3/uL (1.5-5.0); LYMPH % 30.7 % (24.0-44.0); MONO # 1.0 10^3/uL (0.0-0.8); MONO % 14.0 % (2.0-8.0); NEUTROPHILS # 3.7 10^3/uL (1.5-8.5); NEUTROPHILS % 53.2 % (36.0-66.0); PLATELET COUNT, AUTOMATED 458 10^3/uL (150-450)
[2025-09-07 10:19] LABS: ALT/SGPT 10.0 U/L (7.0-40); AST/SGOT 11.0 U/L (<34); CALCIUM LEVEL 9.6 MG/DL (8.3-10.6); CARBON DIOXIDE LEVEL 29.0 MMOL/L (20-31); CHLORIDE LEVEL 101.0 MMOL/L (98-107); CREATININE FOR GFR 1.67 MG/DL (0.55-1.30); GLOMERULAR FILTRATION RATE 32.6 (>39); MAGNESIUM LEVEL 2.4 MG/DL (1.8-2.4); POTASSIUM SERUM 5.1 MMOL/L (3.5-5.1); SODIUM LEVEL 141.0 MMOL/L (136-145)
[2025-09-07 10:27] LABS: INR 1.29
== END ==
LOC: M PLALAB 07:24
PROVIDERS: ATTEND Student in an Organized Health Care Education/Training Program
DX: Z01.818 Encounter for other preprocedural examination (principal); D50.0 Iron deficiency anemia secondary to blood loss (chronic); E87.6 Hypokalemia

== ENCOUNTER → 2025-10-13 | Outpatient (CLI) | payer MEDICARE ==
[~2025-10-13] MED LIST changes: +D5W 1000 ML XX SCH; +IBUPROFEN 600 MG TAB PO PRN; +LIDOCAINE 1% MDV 20 ML VIAL SC SCH; +MIDAZOLAM INJ 2 MG/2 ML VIAL IV PRN; +NS (Normal Saline) 0.9% 1,000 ML IV SCH; +SODIUM TETRADECYL SULFATE (1%) 20MG/2ML VIAL (SOTRADECOL) IV SCH
[2025-10-13 07:20] VITALS: TEMP 98
[2025-10-13 10:00] VITALS: BP 109/61; O2SAT 95
== END ==
LOC: M IRPRO 07:09
PROVIDERS: ATTEND Registered Nurse School
DX: I83.892 Varicose veins of left lower extremity with other complications (principal)
CPT/HCPCS: 36470; 76942; J2250; J3010

== ENCOUNTER → 2025-10-16 | Outpatient (CLI) | payer MEDICARE ==
[~2025-10-16] MED LIST changes: -D5W 1000 ML XX SCH; -IBUPROFEN 600 MG TAB PO PRN; -LIDOCAINE 1% MDV 20 ML VIAL SC SCH; -MIDAZOLAM INJ 2 MG/2 ML VIAL IV PRN; -NS (Normal Saline) 0.9% 1,000 ML IV SCH; -SODIUM TETRADECYL SULFATE (1%) 20MG/2ML VIAL (SOTRADECOL) IV SCH
== END ==
LOC: M RAD 08:10
PROVIDERS: ATTEND Radiology Diagnostic Radiology
DX: I87.2 Venous insufficiency (chronic) (peripheral) (principal); R09.89 Other specified symptoms and signs involving the circulatory and respiratory systems